=== PATIENT | female | born 1950 | race Caucasian/White ===

== ENCOUNTER → 2016-09-02 | Outpatient (CLI) | payer OTHER, BC ==
[~2016-09-02] MED LIST: BUPRTAB51 PO; DULO60CA44 PO; MEPE1TAB PO; POLY335040 PO; ULT/50 PO
[2016-09-02 18:13] LABS: BLOOD UREA NITROGEN 13 mg/dl (7-18); BUN/CREATININE RATIO 15.7 (10-20); CALCIUM 8.6 mg/dl (8.5-10.1); CARBON DIOXIDE 27 mmol/L (21-32); CHLORIDE 106 mmol/L (98-107); CREATININE 0.83 mg/dl (0.60-1.20); GLUCOSE 84 mg/dl (70-99); POTASSIUM 3.4 mmol/L (3.5-5.1); SODIUM 143 mmol/L (136-145)
== END | disposition home or self-care (01) ==
LOC: C.LABMFLN 09:01
PROVIDERS: ATTEND Family Medicine
DX: E87.6 Hypokalemia (principal)

== ENCOUNTER → 2016-10-05 | Outpatient (CLI) | payer OTHER, BC | END | disposition home or self-care (01) | LOC: C.LABMFLN 11:54 | PROVIDERS: ATTEND Internal Medicine Hematology & Oncology | DX: E03.9 Hypothyroidism, unspecified (principal) ==

== ENCOUNTER → 2016-10-19 | Outpatient (CLI) | payer OTHER, BC ==
--- NOTE | 2016-10-21 13:07 | CODING QUERY NO DIAGNOSIS ---
TREATMENT RENDERED WITHOUT A DIAGNOSIS Dr. Luis, To promote full compliance with coding requirements relating to patient care, physician participation is requested in all cases of investment banker uncertainty. Please assist us with providing a diagnosis/symptom for the test(s) below: A diagnosis/symptom was not documented on your Order. A valid diagnosis/symptom is required to bill all insurances. Please remember that we are unable to code a diagnosis of rule out, probable, possible, questionable, or suspected. Tests that require a diagnosis: * ANALYTE IMMUNOASSAY NON-INFECT DIAGNOSIS: * FLUORESCENT NONINF AGENT AB DIAGNOSIS: * VITAMIN D 25 HYDROXY DIAGNOSIS: DATE OF SERVICE: 10/19/16 Provider Signature: Date: Thank you Juan Carlos Franklin [facility] Information Management Once completed, please kindly fax back to [phone] For questions please call [phone]
[2016-10-22 14:44] LABS: GLIADIN DEAMIDATED IgA AB 9 UNITS (<20); GLIADIN DEAMIDATED IgG AB 8 UNITS (<20); RETICULIN IgA AB Negative (Negative)
== END | disposition home or self-care (01) ==
LOC: C.LABMFLN 09:07
PROVIDERS: ATTEND Family Medicine
DX: E87.6 Hypokalemia (principal); K50.919 Crohn's disease, unspecified, with unspecified complications; R19.7 Diarrhea, unspecified; E55.9 Vitamin D deficiency, unspecified

== ENCOUNTER → 2017-01-25 | Outpatient (CLI) | payer OTHER, BC ==
[2017-01-25 17:45] LABS: BASO % 0.9 %; BASO ABS # 0.09 K/uL (0-0.2); COMPLETE YES; EOS % 2.1 %; HEMATOCRIT 43.2 % (37-47); IG% 0.1 %; LYMPH % 22.4 %; LYMPH ABS # 2.23 K/uL (1.2-3.4); MEAN CELL VOLUME 90.4 fL (80-100); MEAN CORPUSCULAR HEMOGLOBIN 29.3 pg (25-34); MEAN CORPUSCULAR HGB CONC 32.4 g/dl (32-36); MEAN PLATELET VOLUME 9.6 fL (7.4-10.4); MONO % 6.3 %; NEUT % 68.2 %; PLATELET COUNT 349 K/uL (130-400); RED BLOOD COUNT 4.78 M/uL (4.2-5.4); WHITE BLOOD COUNT 9.95 K/uL (4.8-10.8)
[2017-01-25 18:18] LABS: ALB/GLOB RATIO 1.3 (0.9-2); ALT/SGPT 64 U/L (12-78); BLOOD UREA NITROGEN 12 mg/dl (7-18); BUN/CREATININE RATIO 15.7 (10-20); CARBON DIOXIDE 28 mmol/L (21-32); CHLORIDE 106 mmol/L (98-107); CHOLESTEROL 129 mg/dl (0-200); CHOLESTEROL/HDL RATIO 2.4; CREATININE 0.79 mg/dl (0.60-1.20); GLUCOSE 109 mg/dl (70-99); HDL CHOLESTEROL 53 mg/dl; LDL CHOLESTEROL CALCULATED 56 mg/dl; PHOSPHORUS 3.3 mg/dl (2.5-4.9); POTASSIUM 3.8 mmol/L (3.5-5.1); SODIUM 142 mmol/L (136-145); TRIGLYCERIDES 101 mg/dl (0-150); VERY LOW DENSITY LIPOPROT CALC 20 mg/dl
[2017-01-25 18:27] LABS: ALKALINE PHOSPHATASE 64 U/L (45-117); AST/SGOT 22 U/L (15-37); THYROID STIMULATING HORMONE 0.317 uIu/ml (0.300-4.500); TOTAL IRON BINDING CAPACITY 399 mcg/dl (250-450)
== END | disposition home or self-care (01) ==
LOC: C.LABMFLN 11:00
PROVIDERS: ATTEND Family Medicine
DX: I10 Essential (primary) hypertension (principal); M85.80 Other specified disorders of bone density and structure, unspecified site; E03.9 Hypothyroidism, unspecified; E83.39 Other disorders of phosphorus metabolism; E55.9 Vitamin D deficiency, unspecified; E83.51 Hypocalcemia; Z13.220 Encounter for screening for lipoid disorders; R53.83 Other fatigue; K50.90 Crohn's disease, unspecified, without complications

== ENCOUNTER → 2017-07-12 | Outpatient (CLI) | payer OTHER, BC ==
[2017-07-12 18:16] LABS: BASO % 0.7 %; BASO ABS # 0.07 K/uL (0-0.2); COMPLETE YES; EOS % 3.6 %; HEMATOCRIT 40.6 % (37-47); IG% 0.1 %; LYMPH % 28.2 %; LYMPH ABS # 2.88 K/uL (1.2-3.4); MEAN CELL VOLUME 89.2 fL (80-100); MEAN CORPUSCULAR HEMOGLOBIN 29.7 pg (25-34); MEAN CORPUSCULAR HGB CONC 33.3 g/dl (32-36); MEAN PLATELET VOLUME 9.7 fL (7.4-10.4); MONO % 8.6 %; NEUT % 58.8 %; PLATELET COUNT 301 K/uL (130-400); RED BLOOD COUNT 4.55 M/uL (4.2-5.4); WHITE BLOOD COUNT 10.23 K/uL (4.8-10.8)
[2017-07-12 18:33] LABS: ALT/SGPT 46 U/L (12-78); AST/SGOT 24 U/L (15-37); BLOOD UREA NITROGEN 17 mg/dl (7-18); BUN/CREATININE RATIO 22.7 (10-20); CALCIUM 8.9 mg/dl (8.5-10.1); CARBON DIOXIDE 28 mmol/L (21-32); CHLORIDE 104 mmol/L (98-107); CREATININE 0.76 mg/dl (0.60-1.20); GLUCOSE 84 mg/dl (70-99); POTASSIUM 3.8 mmol/L (3.5-5.1); SODIUM 138 mmol/L (136-145)
[2017-07-12 18:44] LABS: ALB/GLOB RATIO 1.2 (0.9-2); ALKALINE PHOSPHATASE 77 U/L (45-117); PHOSPHORUS 3.9 mg/dl (2.5-4.9)
== END | disposition home or self-care (01) ==
LOC: C.LABMFLN 16:07
PROVIDERS: ATTEND Family Medicine
DX: K50.90 Crohn's disease, unspecified, without complications (principal); I10 Essential (primary) hypertension; E03.9 Hypothyroidism, unspecified; M85.80 Other specified disorders of bone density and structure, unspecified site; E83.39 Other disorders of phosphorus metabolism; E55.9 Vitamin D deficiency, unspecified; R53.83 Other fatigue

== ENCOUNTER 2017-09-15 17:09 | Observation (INO) | payer OTHER, BC ==
[~2017-09-15] VITALS: Ht 160 cm; Wt 63.1 kg
[2017-09-15] MEDS ORDERED: MoRPHine SULFATE 10 MG/ML CARP/VIAL IV STA (17:20)
[2017-09-15] MEDS ORDERED: ONDANSETRON INJ 2 MG/ML 2 ML VIAL IV STA (17:20)
[2017-09-15] MEDS ORDERED: ABL/5 PO (17:49)
[2017-09-15] MEDS ORDERED: LEVO100T7 PO (17:49)
[2017-09-15] MEDS ORDERED: LOSA1TAB38 PO (17:51)
[2017-09-15] MEDS ORDERED: TRAZ50TA35 PO (17:52)
--- NOTE | 2017-09-15 17:54 | DIAGNOSTIC IMAGING REPORT ---
SINGLE VIEW CHEST CLINICAL HISTORY: Atypical chest pain. FINDINGS: An AP, portable, upright chest radiograph is compared to study dated 02/15/2012. The examination is degraded by portable technique and patient rotation. The cardiomediastinal silhouette is unremarkable. There is unchanged elevation of right hemidiaphragm with associated atelectasis. Chronic interstitial thickening is similar to previous. No airspace consolidation or large pleural effusion is identified. No pneumothorax is seen. The skeletal structures are osteopenic. Degenerative change and scoliosis are noted in the thoracic spine. There are numerous healed left-sided rib fractures. Cholecystectomy clips are identified in the right upper quadrant. IMPRESSION: No acute cardiopulmonary abnormality. Electronically signed by: Polo Reynoso M.D. 09/15/2017 5:52 PM Dictated Date/Time: 09/15/2017 5:51 PM
[2017-09-15 18:02] LABS: BASO % 0.8 %; BASO ABS # 0.07 K/uL (0-0.2); EOS % 3.1 %; EOS ABS # 0.26 K/uL (0-0.5); HEMATOCRIT 39.2 % (37-47); HEMOGLOBIN 12.8 g/dL (12.0-16.0); IG# 0.02 K/uL (0.00-0.02); LYMPH % 28.7 %; LYMPH ABS # 2.38 K/uL (1.2-3.4); MEAN CELL VOLUME 89.1 fL (80-100); MEAN CORPUSCULAR HEMOGLOBIN 29.1 pg (25-34); MEAN CORPUSCULAR HGB CONC 32.7 g/dl (32-36); MEAN PLATELET VOLUME 9.5 fL (7.4-10.4); MONO % 7.6 %; MONO ABS # 0.63 K/uL (0.11-0.59); NEUT % 59.6 %; NEUT ABS # 4.92 K/uL (1.4-6.5); PLATELET COUNT 311 K/uL (130-400); RED CELL DISTRIBUTION WIDTH CV 13.6 % (11.5-14.5); RED CELL DISTRIBUTION WIDTH SD 44.6 fL (36.4-46.3); WHITE BLOOD COUNT 8.28 K/uL (4.8-10.8)
[2017-09-15 18:22] LABS: ALBUMIN 3.7 gm/dl (3.4-5.0); ALT/SGPT 53 U/L (12-78); AST/SGOT 23 U/L (15-37); BLOOD UREA NITROGEN 13 mg/dl (7-18); CARBON DIOXIDE 26 mmol/L (21-32); CREATININE 0.77 mg/dl (0.60-1.20); GLUCOSE 94 mg/dl (70-99); LIPASE 195 U/L (73-393); POTASSIUM 3.9 mmol/L (3.5-5.1); SODIUM 137 mmol/L (136-145)
[2017-09-15 18:28] LABS: ALKALINE PHOSPHATASE 80 U/L (45-117); CKMB 1.9 ng/ml (0.5-3.6); TOTAL PROTEIN 6.9 gm/dl (6.4-8.2)
[2017-09-15] MEDS ORDERED: NITROGLYCERIN 0.4 MG SL PER TAB CHARGE SL PRN (18:30)
[2017-09-15] MEDS ORDERED: ONDANSETRON INJ 2 MG/ML 2 ML VIAL IV PRN (18:30)
[2017-09-15] MEDS ORDERED: POLYETHYLENE (MIRALAX) 17 GM PACK PO PRN (18:30)
--- NOTE | 2017-09-15 18:39 | History and Physical ---
History & Physical Date & Time of Service: Sep 15, 2017 at 18:28 Chief Complaint: Chest Pain Primary Care Physician: Polo Meraz M.D. History of Present Illness Source: patient, family This is a 67 yo F with PMHx of HTN, Crohns disease, Fibromyalgia, Vit D deficiency, depression, BETH, insomnia, hypothyroidism, who presents to the ER with acute onset of chest pain x 1 day. She was seen by her PCP, Dr. Meraz who sent her to the ER. Pt reports her pain started around 1 pm when she was laying flat in bed resting. The pain is in her left chest and radiates towards the center, she does have jaw pain. Patient denies any radiation to her back or down her arms. Other symptoms she is experiencing included headache, and increasing shortness of breath with minimal exertion. Pt notes she has been increasingly weak and with generalized fatigue over the last few weeks. She admits to taking rolaids during the night for the past few months and admits to a burning sensation, nausea. She does not take a routine PPI. Pt also reports urinary symptoms of burning and increased frequency x 1 week. She has not taken any meds for UTI, but has been increasing her fluid intake. She has attributed fatigue to her psychiatric meds which Dr. Ruiz at [facility] has been adjusting. Her Wellbutrin was recently increased to 150 mg about 2 weeks ago to improve her energy level. Otherwise her mood has been fairly good. Here in the ER EKG appears to be normal sinus rhythm without ST-T wave inversions or signs of ischemia. Initial troponin is negative, awaiting results of a d-dimer. Chest x-ray was reviewed showing a elevated right hemidiaphragm. Osteopenia. Past Medical/Surgical History HTN Crohns disease s/p R hemicolectomy 1968 and bowel adhesion lysis surgery 1991 Fibromyalgia Vit D deficiency depression BETH insomnia hypothyroidism Social History Smoking Status: Never Smoker Smokeless Tobacco Use: No Alcohol Use: none Drug Use: none Marital Status: Housing status: lives with family Occupational Status: retired Immunizations History of Influenza Vaccine: No History of Tetanus Vaccine?: Yes Tetanus Immunization Date: Feb 23, 2011 History of Pneumococcal: No History of Hepatitis B Vaccine: No Multi-Drug Resistant Organisms History of MDRO: No Allergies Coded Allergies: Codeine (Verified Adverse Reaction, Intermediate, AGITATION, HYPERACTIVITY , UNEASINESS, 09/15/17) Droperidol (Verified Adverse Reaction, Intermediate, AGITATION, HYPERACTIVITY, UNEASINESS, 09/15/17) Ketorolac (Verified Adverse Reaction, Intermediate, AGITATION, HYPERACTIVITY, 09/15/17) Oxycodone (Verified Adverse Reaction, Intermediate, PERCOCET/PERCODAN= AGITATION, UNEASINESS, HYPERACTIVITY, 09/15/17) Prochlorperazine (Verified Adverse Reaction, Intermediate, AGITATION, HYPERACTIVITY, 09/15/17) Propoxyphene (Verified Adverse Reaction, Intermediate, AGITATION, HYPERACTIVITY, 09/15/17) Replaces DARVOCET-N 10 Home Medications Scheduled Aripiprazole (Abilify), 2.5 MG PO QAM Bupropion Hcl (Wellbutrin Xl), 150 MG PO QAM Duloxetine Hcl (Cymbalta), 60 MG PO QAM Levothyroxine Sodium (Levothyroxine Sodium), 100 MCG PO QAM Losartan Potassium (Cozaar), 100 MG PO QAM Trazodone Hcl (Trazodone), 50 MG PO HS Review of Systems Constitutional: No fever, sweats or chills Eyes: No diplopia, no worsening or blurred vision ENT: normal hearing, no trouble swallowing Respiratory: See HPI. No cough, sputum, dyspnea at rest. Cardiovascular: See HPI. No tightness or palpitations Abdomen: +indigestion, No pain, nausea, vomiting, diarrhea or constipation Musculoskeletal: No joint pain, calf pain, swelling Neurologic: No weakness, numbness/tingling, or balance problems Psychiatric: No anxiety or depression Skin: No rash or itch Physical Exam Vital Signs Date Time Temp Pulse Resp B/P (MAP) Pulse Ox O2 Delivery O2 Flow Rate FiO2 09/15/17 18:06 76 20 122/70 96 Room Air 09/15/17 17:28 78 09/15/17 17:10 36.8 82 20 135/70 94 Room Air 09/15/17 17:10 94 Room Air 09/15/17 17:10 94 Room Air General: awake, alert, no apparent distress Head: Normocephalic, atraumatic ENT: PERRL, EOMI, no pharyngeal exudate, mucous membranes moist Chest: Nontender to palpation, Clear to auscultation, on room air, no adventitious breath sounds Cardiac: Regular rate and rhythm, no murmur, no JVD, normal peripheral pulses, good capillary refill Abdominal: NABS x 4 quadrants, soft, + Tenderness in epigastric with palpation, no rebound, guarding or tenderness Extremities: Normal inspection, no peripheral edema or erythema, calfs nontender to palpation Psych: Normal mood and affect Neuro: AAO x 3, speech is clear, no peripheral sensory deficits Diagnostics Laboratory Results Results Past 24 Hours Test 09/15/17 17:20 09/15/17 17:30 Range/Units Creatine Kinase MB Ratio 0-3.0 White Blood Count 8.28 4.8-10.8 K/uL Red Blood Count 4.40 4.2-5.4 M/uL Hemoglobin 12.8 12.0-16.0 g/dL Hematocrit 39.2 37-47 % Mean Corpuscular Volume 89.1 80-100 fL Mean Corpuscular Hemoglobin 29.1 25-34 pg Mean Corpuscular Hemoglobin Concent 32.7 32-36 g/dl Platelet Count 311 130-400 K/uL Mean Platelet Volume 9.5 7.4-10.4 fL Neutrophils (%) (Auto) 59.6 % Lymphocytes (%) (Auto) 28.7 % Monocytes (%) (Auto) 7.6 % Eosinophils (%) (Auto) 3.1 % Basophils (%) (Auto) 0.8 % Neutrophils # (Auto) 4.92 1.4-6.5 K/uL Lymphocytes # (Auto) 2.38 1.2-3.4 K/uL Monocytes # (Auto) 0.63 0.11-0.59 K/uL Eosinophils # (Auto) 0.26 0-0.5 K/uL Basophils # (Auto) 0.07 0-0.2 K/uL RDW Standard Deviation 44.6 36.4-46.3 fL RDW Coefficient of Variation 13.6 11.5-14.5 % Immature Granulocyte % (Auto) 0.2 % Immature Granulocyte # (Auto) 0.02 0.00-0.02 K/uL Sodium Level 137 136-145 mmol/L Potassium Level 3.9 3.5-5.1 mmol/L Chloride Level 105 98-107 mmol/L Carbon Dioxide Level 26 21-32 mmol/L Anion Gap 6.0 3-11 mmol/L Blood Urea Nitrogen 13 7-18 mg/dl Creatinine 0.77 0.60-1.20 mg/dl Est Creatinine Clear Calc Drug Dose 65.4 ml/min Estimated GFR () 92.6 Estimated GFR (Non- 79.9 BUN/Creatinine Ratio 17.0 10-20 Random Glucose 94 70-99 mg/dl Calcium Level 9.0 8.5-10.1 mg/dl Direct Bilirubin < 0.1 0-0.2 mg/dl Aspartate Amino Transf (AST/SGOT) 23 15-37 U/L Alanine Aminotransferase (ALT/SGPT) 53 12-78 U/L Albumin 3.7 3.4-5.0 gm/dl Lipase 195 73-393 U/L Diagnostic Radiology SINGLE VIEW CHEST CLINICAL HISTORY: Atypical chest pain. FINDINGS: An AP, portable, upright chest radiograph is compared to study dated 02/15/2012. The examination is degraded by portable technique and patient rotation. The cardiomediastinal silhouette is unremarkable. There is unchanged elevation of right hemidiaphragm with associated atelectasis. Chronic interstitial thickening is similar to previous. No airspace consolidation or large pleural effusion is identified. No pneumothorax is seen. The skeletal structures are osteopenic. Degenerative change and scoliosis are noted in the thoracic spine. There are numerous healed left-sided rib fractures. Cholecystectomy clips are identified in the right upper quadrant. IMPRESSION: No acute cardiopulmonary abnormality. Electronically signed by: Polo Reynoso M.D. 09/15/2017 5:52 PM Dictated Date/Time: 09/15/2017 5:51 PM The status of this report is Signed. EKG Normal sinus rhythm Normal ECG No previous ECGs available NE interval 134 ms QRS duration 78 ms QT/QTc 378/430 ms P-R-T axes 8 9 40 Impression Assessment and Plan This is a 67 yo F with PMHx of HTN, Crohns disease, Fibromyalgia, Vit D deficiency, depression, BETH, insomnia, hypothyroidism, who presents to the ER with acute onset of chest pain x 1 day. Chest Pain HTN - Admit to tele for observation - Appears to be epigastric with tenderness on palpation and history of requiring an acid - will give a GI cocktail and start on daily Protonix - Use nitropaste Q6H as pt had 2 tabs in the ER and had relief - initial troponin neg, trending 2 more sets, if troponins negative can likely do an outpatient stress test - Check echo - Continue home meds of losartan 100 mg daily, start on baby aspirin. Morphine sulfate 2 mg IV Q2H for severe pain Weakness - Will check an iron panel and lymes titre to r/o other causes of weakness. Hx Crohns disease - Stable - Pt follows with Dr. Luis as an outpatient. GERD - Start PPI and gi cocktail as above Possible UTI - Pt admits to symptoms of urinary burning and frequency 1 week - Check UA and Ucx if indicated. - Will start on Cipro 500 mg BID Vit D deficiency - Check level Hypothyroidism - Continue levothyroxine DVT ppx: teds, scds, lovenox CODE STATUS: Full Code Disposition: From home, likely discharge tomorrow. PA Physician Supervision Note: I interviewed and examined the patient. Discussed with Margarita Mcdonnell PAC and agree with findings and plan as documented in the note. Any exceptions or clarifications are listed here: None Documented By: Josue Kumar Level of Care Telemetry Resuscitation Status FULL RESUSCITATION VTE Prophylaxis Risk Level: Low Given or contraindicated: Enoxaparin (Lovenox)SQ, T.E.D. Stockings, SCD's
[2017-09-15 19:09] LABS: PTT PATIENT 25.2 SECONDS (21.0-31.0)
[2017-09-15] MEDS ORDERED: GI COCKTAIL PO ONE (19:15)
[2017-09-15] MEDS ORDERED: MoRPHine SULFATE 2 MG/ML CARP IV PRN (19:15)
[2017-09-15] MEDS ORDERED: MoRPHine SULFATE 2 MG/ML CARP ONE (19:16)
[2017-09-15] MEDS ORDERED: ALUMINUM/MAGNESIUM SUSP 18 ML, LIDOCAINE HCL 2% VISCOUS SOLN 6 ML, BARCODE IDENTIFIER 1 EA PO SCH ×2 (19:30)
[2017-09-15] MEDS ORDERED: IV FLUIDS COMPLETED PRN (19:45)
[2017-09-15 20:44] VITALS: BP 116/70; PULSE 81; TEMP 36.5; O2SAT 93; Ht 160 cm; Wt 63.1 kg
--- NOTE | 2017-09-15 20:59 | EMERGENCY ROOM VISIT NOTE ---
History Report prepared by Noah: Aleja Hawkins Under the Supervision of: Dr. Misael Mckeon D.O. First contact with patient: 17:12 Stated Complaint: CHEST PAIN History of Present Illness The patient is a 67 year old female who presents to the Emergency Room with complaints of persistent chest pain starting 4 hours ago. She presents to the ED by EMS from her PCP's office. The patient started having chest pain around 4 hours ago which she describes as a "contraction". She states that it is sharp and stabbing. The pain radiates up into her jaw. She has never had this pain before. She tried taking Rolaids to no significant relief. She went to her PCP and was sent to the ED. She had 162 of aspirin [employer]. She had nitro which initially relieved her pain, but the pain returned. She does not identify anything else that improves or worsens her pain. There is no change in her pain with breathing. She feels SOB. She had been feeling weak and fatigued over the past 3-4 days. She denies any hemoptysis, leg swelling, cough, rhinorrhea, or abdominal pain. She has a history of hypertension. She denies any history of blood clots, diabetes, high cholesterol, or problems with her aorta. She does not smoke. She denies any recent travel. Source of History: patient Onset: 4 hours ago Position: chest Quality: sharp, stabbing Timing: other (persistent) Modifying Factors (Relieving): other (nitro) Associated Symptoms: + SOB, + fatigue, + weakness, No cough, No abdominal pain Note: Pt reports jaw pain. Review of Systems See HPI for pertinent positives & negatives. A total of 10 systems reviewed and were otherwise negative. Past Medical & Surgical Medical Problems: (1) Chest pain (2) Crohn's disease (3) Hypertension Family History No pertinent family history stated. Social History Smoking Status: Never Smoker Marital Status: Occupation Status: retired Current/Historical Medications Scheduled Aripiprazole (Abilify), 2.5 MG PO QAM Bupropion Hcl (Wellbutrin Xl), 150 MG PO QAM Duloxetine Hcl (Cymbalta), 60 MG PO QAM Levothyroxine Sodium (Levothyroxine Sodium), 100 MCG PO QAM Losartan Potassium (Cozaar), 100 MG PO QAM Trazodone Hcl (Trazodone), 50 MG PO HS Allergies Coded Allergies: Codeine (Verified Adverse Reaction, Intermediate, AGITATION, HYPERACTIVITY , UNEASINESS, 09/15/17) Droperidol (Verified Adverse Reaction, Intermediate, AGITATION, HYPERACTIVITY, UNEASINESS, 09/15/17) Ketorolac (Verified Adverse Reaction, Intermediate, AGITATION, HYPERACTIVITY, 09/15/17) Oxycodone (Verified Adverse Reaction, Intermediate, PERCOCET/PERCODAN= AGITATION, UNEASINESS, HYPERACTIVITY, 09/15/17) Prochlorperazine (Verified Adverse Reaction, Intermediate, AGITATION, HYPERACTIVITY, 09/15/17) Propoxyphene (Verified Adverse Reaction, Intermediate, AGITATION, HYPERACTIVITY, 09/15/17) Replaces DARVOCET-N 10 Physical Exam Vital Signs Date Time Temp Pulse Resp B/P (MAP) Pulse Ox O2 Delivery O2 Flow Rate FiO2 09/15/17 18:30 78 17 125/75 92 Room Air 09/15/17 18:06 76 20 122/70 96 Room Air 09/15/17 17:28 78 09/15/17 17:10 36.8 82 20 135/70 94 Room Air 09/15/17 17:10 94 Room Air 09/15/17 17:10 94 Room Air Physical Exam GENERAL: Sitting up in bed, alert, well appearing, well nourished, no distress, non-toxic EYE EXAM: normal conjunctiva. OROPHARYNX: no exudate, no erythema, lips, buccal mucosa, and tongue normal and mucous membranes are moist NECK: supple, no nuchal rigidity, no adenopathy, non-tender CHEST: No reproducible anterior chest wall pain. LUNGS: Clear to auscultation. Normal chest wall mechanics HEART: no murmurs, S1 normal and S2 normal ABDOMEN: abdomen soft, non-tender, normo-active bowel sounds, no masses, no rebound or guarding. BACK: Back is symmetrical on inspection and there is no deformity, no midline tenderness, no CVA tenderness. SKIN: no rashes and no bruising UPPER EXTREMITIES: upper extremities are grossly normal. Radial pulses equal bilaterally. LOWER EXTREMITIES: No pitting edema. Calves equal bilaterally. NEURO EXAM: Normal sensorium, cranial nerves II-XII grossly intact, normal speech, no gross weakness of arms, no gross weakness of legs. Medical Decision & Procedures ER Provider Diagnostic Interpretation: Xray results as stated below per my and the radiologist's interpretation: SINGLE VIEW CHEST CLINICAL HISTORY: Atypical chest pain. FINDINGS: An AP, portable, upright chest radiograph is compared to study dated 02/15/2012. The examination is degraded by portable technique and patient rotation. The cardiomediastinal silhouette is unremarkable. There is unchanged elevation of right hemidiaphragm with associated atelectasis. Chronic interstitial thickening is similar to previous. No airspace consolidation or large pleural effusion is identified. No pneumothorax is seen. The skeletal structures are osteopenic. Degenerative change and scoliosis are noted in the thoracic spine. There are numerous healed left-sided rib fractures. Cholecystectomy clips are identified in the right upper quadrant. IMPRESSION: No acute cardiopulmonary abnormality. Electronically signed by: Polo Reynoso M.D. 09/15/2017 5:52 PM Dictated Date/Time: 09/15/2017 5:51 PM Laboratory Results 09/15/17 17:30 Red Blood Count 4.40, Mean Corpuscular Volume 89.1, Mean Corpuscular Hemoglobin 29.1, Mean Corpuscular Hemoglobin Concent 32.7, Mean Platelet Volume 9.5, Neutrophils (%) (Auto) 59.6, Lymphocytes (%) (Auto) 28.7, Monocytes (%) (Auto) 7.6, Eosinophils (%) (Auto) 3.1, Basophils (%) (Auto) 0.8, Neutrophils # (Auto) 4.92, Lymphocytes # (Auto) 2.38, Monocytes # (Auto) 0.63, Eosinophils # (Auto) 0.26, Basophils # (Auto) 0.07 09/15/17 17:30 Test 09/15/17 00:00 09/15/17 17:30 Urine Color DK YELLOW Urine Appearance CLEAR (CLEAR) Urine pH 5.0 (4.5-7.5) Urine Specific [place] 1.020 (1.000-1.030) Urine Protein NEG (NEG) Urine Glucose (UA) NEG (NEG) Urine Ketones NEG (NEG) Urine Occult Blood NEG (NEG) Urine Nitrite NEG (NEG) Urine Bilirubin NEG (NEG) Urine Urobilinogen NEG (NEG) Urine Leukocyte Esterase MODERATE (NEG) Urine WBC (Auto) >30 /hpf (0-5) Urine RBC (Auto) 0-4 /hpf (0-4) Urine Hyaline Casts (Auto) 1-5 /lpf (0-5) Urine Epithelial Cells (Auto) >30 /lpf (0-5) Urine Bacteria (Auto) NEG (NEG) White Blood Count 8.28 K/uL (4.8-10.8) Red Blood Count 4.40 M/uL (4.2-5.4) Hemoglobin 12.8 g/dL (12.0-16.0) Hematocrit 39.2 % (37-47) Mean Corpuscular Volume 89.1 fL (80-100) Mean Corpuscular Hemoglobin 29.1 pg (25-34) Mean Corpuscular Hemoglobin Concent 32.7 g/dl (32-36) Platelet Count 311 K/uL (130-400) Mean Platelet Volume 9.5 fL (7.4-10.4) Neutrophils (%) (Auto) 59.6 % Lymphocytes (%) (Auto) 28.7 % Monocytes (%) (Auto) 7.6 % Eosinophils (%) (Auto) 3.1 % Basophils (%) (Auto) 0.8 % Neutrophils # (Auto) 4.92 K/uL (1.4-6.5) Lymphocytes # (Auto) 2.38 K/uL (1.2-3.4) Monocytes # (Auto) 0.63 K/uL (0.11-0.59) Eosinophils # (Auto) 0.26 K/uL (0-0.5) Basophils # (Auto) 0.07 K/uL (0-0.2) RDW Standard Deviation 44.6 fL (36.4-46.3) RDW Coefficient of Variation 13.6 % (11.5-14.5) Immature Granulocyte % (Auto) 0.2 % Immature Granulocyte # (Auto) 0.02 K/uL (0.00-0.02) Prothrombin Time 10.2 SECONDS (9.0-12.0) Prothromb Time International Ratio 1.0 (0.9-1.1) Activated Partial Thromboplast Time 25.2 SECONDS (21.0-31.0) Partial Thromboplastin Ratio 1.0 D-Dimer 210 ug/L FEU (0-500) Anion Gap 6.0 mmol/L (3-11) Est Creatinine Clear Calc Drug Dose 65.4 ml/min Estimated GFR () 92.6 Estimated GFR (Non- 79.9 BUN/Creatinine Ratio 17.0 (10-20) Calcium Level 9.0 mg/dl (8.5-10.1) Total Bilirubin 0.4 mg/dl (0.2-1) Direct Bilirubin < 0.1 mg/dl (0-0.2) Aspartate Amino Transf (AST/SGOT) 23 U/L (15-37) Alanine Aminotransferase (ALT/SGPT) 53 U/L (12-78) Alkaline Phosphatase 80 U/L (45-117) Total Creatine Kinase 74 U/L (26-192) Creatine Kinase MB 1.9 ng/ml (0.5-3.6) Creatine Kinase MB Ratio 2.6 (0-3.0) Troponin I < 0.015 ng/ml (0-0.045) Total Protein 6.9 gm/dl (6.4-8.2) Albumin 3.7 gm/dl (3.4-5.0) Lipase 195 U/L (73-393) Lyme Disease IgM Antibody NEG (NEG) Laboratory results per my review. Medications Administered Medications (Trade) Dose Ordered Sig/Theresa Route Start Time Stop Time Status Last Admin Dose Admin Morphine Sulfate (MoRPHine SULFATE INJ) 6 mg NOW STAT IV 09/15/17 17:20 09/15/17 17:21 DC 09/15/17 18:08 6 MG Ondansetron HCl (Zofran Inj) 4 mg NOW STAT IV 09/15/17 17:20 09/15/17 17:21 DC 09/15/17 18:08 4 MG ECG Indication: chest pain Rate (beats per minute): 78 Rhythm: sinus rhythm Findings: no ectopy, other (normal axis, poor baseline inferior leads) Change: EKG from 1530 shows SR, rate 79, normal axis, no ectopy. EKGs per my interpretation. ED Course ED COURSE: Vital signs were reviewed and showed normal vitals. The patients medical record was reviewed The above diagnostic studies were performed and reviewed. ED treatments and interventions as stated above. 1713: The patient was evaluated in room C8. A complete history and physical examination was performed. 1720: Zofran Inj 4 mg IV, Morphine Sulfate 6 mg IV. 1811: I reevaluated the patient. She has just received the morphine. She is feeling slightly better. 1826: I reviewed the patient's case with Dr. Kumar [facility] hospitalist. He will evaluate the patient for further management. 1831: Upon reevaluation, the patient's pain is improved. She is also complaining of urinary symptoms. I discussed my findings with the patient and she understands and agrees with the treatment plan. Based on the patients age, coexisting illnesses, exam and lab findings the decision to treat as an inpatient was made. The patient remained stable while under my care. The patient will be evaluated for further management. Medical Decision Differential diagnoses includes but is not limited to acute coronary syndrome, myocardial infarction, pericarditis, pulmonary embolus, aortic dissection, pneumonia, pneumothorax, musculoskeletal, shingles, esophageal. Patient is a 67-year-old female who has been feeling real weak for the past 2-3 days. She has also felt short of breath. Today she started to have intermittent chest pain. Present PCPs office and was referred in to the ER. EKG was unremarkable. Upon was negative. Chest x-ray unremarkable. She did admit to dysuria and urgency. UA was obtained. Did show white cells and esterase. Greater than 30 epithelial cells. This was not a clean catch. EKG was nonischemic. She was given morphine and had significant improvement in her pain. Discussed with internal medicine patient was negative for further workup. Medication Reconcilliation Current Medication List: was personally reviewed by me Blood Pressure Screening Patient's blood pressure: Normal blood pressure Blood pressure disposition: Did not require urgent referral Consults Time Called: 1819 Consulting Physician: JOVON Ghotra hospitalist Returned Call: [phone] I reviewed the patient's case with him. He will evaluate the patient for further management. Impression Primary Impression: Precordial chest pain Scribe Attestation The scribe's documentation has been prepared under my direction and personally reviewed by me in its entirety. I confirm that the note above accurately reflects all work, treatment, procedures, and medical decision making performed by me. Departure Information Dispostion Being Evaluated By Hospitalist Referrals No Doctor, Assigned (PCP)
[2017-09-15] MEDS ORDERED: TRAZODONE HCL 50 MG TAB PO SCH (21:00)
[2017-09-15] MEDS: CIPROFLOXACIN 500 MG TAB PO SCH (21:38)
[2017-09-15] MEDS: ENOXAPARIN 40 MG/0.4 ML SYR SC SCH (21:39)
[2017-09-15 22:48] VITALS: BP 99/53; PULSE 80; TEMP 36.8; O2SAT 92
[2017-09-15] MEDS: NITROGLYCERIN 2% OINTMENT 30GM TUBE EXT SCH (23:12)
[2017-09-15 23:15] VITALS: BP 109/64; PULSE 86; TEMP 36.6; O2SAT 93
[2017-09-16] VITALS (11 sets, daily range): BP systolic 90–146; BP diastolic 55–84; PULSE 71–89; TEMP 36.2–36.9; O2SAT 91–95
[2017-09-16] MEDS: ACETAMINOPHEN 325 MG TAB PO PRN ×3 (02:53→20:54)
[2017-09-16] MEDS: LEVOTHYROXINE 100 MCG TAB PO SCH (06:31)
[2017-09-16] MEDS: NITROGLYCERIN 2% OINTMENT 30GM TUBE EXT SCH ×2 (06:31→12:27)
[2017-09-16 07:05] LABS: BASO % 0.9 %; BASO ABS # 0.04 K/uL (0-0.2); EOS % 3.2 %; EOS ABS # 0.14 K/uL (0-0.5); HEMATOCRIT 34.1 % (37-47); HEMOGLOBIN 11.3 g/dL (12.0-16.0); IG# 0.01 K/uL (0.00-0.02); LYMPH % 30.1 %; LYMPH ABS # 1.31 K/uL (1.2-3.4); MEAN CELL VOLUME 88.6 fL (80-100); MEAN CORPUSCULAR HEMOGLOBIN 29.4 pg (25-34); MEAN CORPUSCULAR HGB CONC 33.1 g/dl (32-36); MEAN PLATELET VOLUME 9.3 fL (7.4-10.4); MONO % 8.3 %; MONO ABS # 0.36 K/uL (0.11-0.59); NEUT % 57.3 %; NEUT ABS # 2.49 K/uL (1.4-6.5); PLATELET COUNT 224 K/uL (130-400); RED CELL DISTRIBUTION WIDTH CV 13.7 % (11.5-14.5); RED CELL DISTRIBUTION WIDTH SD 44.2 fL (36.4-46.3); WHITE BLOOD COUNT 4.35 K/uL (4.8-10.8)
[2017-09-16 07:25] LABS: BLOOD UREA NITROGEN 13 mg/dl (7-18); CALCIUM 8.1 mg/dl (8.5-10.1); CARBON DIOXIDE 27 mmol/L (21-32); CHOLESTEROL 110 mg/dl (0-200); CREATININE 0.63 mg/dl (0.60-1.20); GLUCOSE 88 mg/dl (70-99); POTASSIUM 3.9 mmol/L (3.5-5.1); SODIUM 137 mmol/L (136-145)
[2017-09-16] MEDS: ASPIRIN 81 MG ECTAB PO SCH (07:28)
[2017-09-16] MEDS: BuPROPion XL 150 MG TABCR PO SCH (07:28)
[2017-09-16] MEDS: ARIPIprazole TAB 5 MG TAB PO SCH (07:28)
[2017-09-16] MEDS: CIPROFLOXACIN 500 MG TAB PO SCH ×2 (07:28→20:52)
[2017-09-16] MEDS: DULOXETINE HCL 60 MG CAP PO SCH (07:28)
[2017-09-16] MEDS: PANTOprazole SOD 40 MG TAB PO SCH (07:28)
[2017-09-16 07:31] LABS: LDL CHOLESTEROL CALCULATED 44 mg/dl; TRANSFERRIN 278 mg/dl (200-360)
[2017-09-16 08:29] LABS: HEMOGLOBIN A1C 5.4 % (4.5-5.6)
[2017-09-16] MEDS: LOSARTAN POTASSIUM 50 MG TAB PO SCH (09:00)
--- NOTE | 2017-09-16 13:12 | ECHOCARDIOGRAM REPORT ---
*NOTICE TO RECEIVING CONSTITUTION PARTY AGENCY This information is strictly Confidential and protected under [place] law. [place] law prohibits you from making any further disclosure of this information unless further disclosure is expressly permitted by the written consent of the person to whom it pertains or is authorized by law. A general authorization for the release of medical or other information is not sufficient for this purpose. Hospital accepts no responsibility if the information is made available to any other person, INCLUDING THE PATIENT. Interpretation Summary * Conclusions -- * [facility], no significant change. * The left ventricle is normal in size. * The left ventricular wall motion is normal. * Ejection Fraction = 55-60%. * Left ventricular systolic function is normal. * There is borderline concentric left ventricular hypertrophy. * There is mild mitral regurgitation. * The left atrial size is normal. * There is mild tricuspid regurgitation. * Right ventricular systolic pressure is normal. Procedure Details * A complete two-dimensional transthoracic echocardiogram was performed (2D, M-mode, Doppler and color flow Doppler). Left Ventricle * The left ventricle is normal in size. * There is borderline concentric left ventricular hypertrophy. * Left ventricular systolic function is normal. * Ejection Fraction = 55-60%. * The left ventricular wall motion is normal. Right Ventricle * The right ventricle is mildly dilated. * There is normal right ventricular wall thickness. * The right ventricular systolic function is normal. Atria * The left atrial size is normal. * Right atrial size is normal. * The interatrial septum is intact with no evidence for an atrial septal defect. Mitral Valve * The mitral valve is normal in structure and function. * There is no mitral valve stenosis. * There is mild mitral regurgitation. Tricuspid Valve * The tricuspid valve is normal in structure and function. * There is mild tricuspid regurgitation. * Right ventricular systolic pressure is normal. Aortic Valve * The aortic valve is trileaflet. * The aortic valve is normal in structure and function. * No hemodynamically significant valvular aortic stenosis. * No aortic regurgitation is present. Pulmonic Valve * The pulmonary valve is not well seen, but the Doppler examination is normal without significant regurgitation or stenosis. * There is no significant pulmonary regurgitation. Great Vessels * The aortic root is normal size. * Aortic arch of normal dimension. * No obvious dissection could be visualized. * The pulmonary artery is not well visualized, but is probably normal size. Pericardium/Pleural * There is no pericardial effusion. MMode 2D Measurements and Calculations IVSd 1.3 cm IVSs 1.2 cm LVIDd 3.8 cm LVIDs 2.9 cm LVPWd 1.1 cm LVPWs 1.3 cm IVS/LVPW 1.2 FS 23.3 % EDV(Teich) 62.5 ml ESV(Teich) 32.9 ml EF(Teich) 47.4 % EDV(cubed) 55.4 ml ESV(cubed) 25.0 ml EF(cubed) 54.9 % % IVS thick -6.92 % % LVPW thick 12.0 % LV mass(C)d 159.5 grams LV mass(C)dI 93.5 grams/m\S\2 LV mass(C)s 112.6 grams LV mass(C)sI 66.0 grams/m\S\2 SV(Teich) 29.6 ml SI(Teich) 17.3 ml/m\S\2 SV(cubed) 30.4 ml SI(cubed) 17.8 ml/m\S\2 Ao root diam 2.6 cm Ao root area 5.3 cm\S\2 ACS 1.8 cm LA dimension 2.2 cm LA/Ao 0.86 LVOT diam 1.9 cm LVOT area 2.9 cm\S\2 LVAd ap4 27.2 cm\S\2 LVLd ap4 7.2 cm EDV(MOD-sp4) 83.9 ml EDV(sp4-el) 86.4 ml LVAs ap4 18.2 cm\S\2 LVLs ap4 6.0 cm ESV(MOD-sp4) 45.3 ml ESV(sp4-el) 47.0 ml EF(MOD-sp4) 46.0 % EF(sp4-el) 45.6 % LVAd ap2 23.9 cm\S\2 LVLd ap2 6.3 cm EDV(MOD-sp2) 76.3 ml EDV(sp2-el) 77.0 ml LVAs ap2 11.8 cm\S\2 LVLs ap2 4.7 cm ESV(MOD-sp2) 25.8 ml ESV(sp2-el) 25.2 ml EF(MOD-sp2) 66.2 % EF(sp2-el) 67.2 % LVLd %diff -15.55 % EDV(MOD-bp) 86.7 ml LVLs %diff -27.11 % ESV(MOD-bp) 38.3 ml EF(MOD-bp) 55.8 % SV(MOD-sp4) 38.6 ml SI(MOD-sp4) 22.6 ml/m\S\2 SV(MOD-sp2) 50.5 ml SI(MOD-sp2) 29.6 ml/m\S\2 SV(MOD-bp) 48.4 ml SI(MOD-bp) 28.4 ml/m\S\2 SV(sp4-el) 39.4 ml SI(sp4-el) 23.1 ml/m\S\2 SV(sp2-el) 51.8 ml SI(sp2-el) 30.4 ml/m\S\2 Doppler Measurements and Calculations MV E max hardeep 74.4 cm/sec MV A max hardeep 73.3 cm/sec MV E/A 1.0 MV P1/2t max hardeep 88.9 cm/sec MV P1/2t 85.7 msec MVA(P1/2t) 2.6 cm\S\2 MV dec slope 303.6 cm/sec\S\2 MV dec time 0.28 sec Ao V2 max 120.7 cm/sec Ao max PG 5.8 mmHg Ao max PG (full) 2.4 mmHg MILENA(V,A) 2.2 cm\S\2 MILENA(V,D) 2.2 cm\S\2 LV V1 max PG 3.4 mmHg LV V1 max 92.2 cm/sec PA V2 max 85.4 cm/sec PA max PG 2.9 mmHg TR max hardeep 241.9 cm/sec
[2017-09-16] MEDS: SUCRALFATE 1 GM/10 ML UDC PO SCH ×2 (17:36→20:51)
[2017-09-16] MEDS: ENOXAPARIN 40 MG/0.4 ML SYR SC SCH (20:52)
[2017-09-16] MEDS ORDERED: TRAZODONE HCL 100 MG TAB PO SCH (21:00)
--- NOTE | 2017-09-16 21:02 | Progress Note ---
Subjective Date of Service: Sep 16, 2017. Subjective Pt evaluation today including: conversation w/ patient, physical exam, chart review, lab review, review of studies (echo), conversation w/ leasing sales consultant ( cardiology), review of inpatient medication list Pain: chest pain again this AM at 0630 PO Intake: tolerating diet w/o difficulty Voiding: no voiding problems tele stable overnight patient reports NO exertional chest pain, dyspnea, extreme fatigue (above & beyond chronic fatigue from fibromyalgia), etc in the last few months denies positional nature of chest pain in between episodes she has no pain no pleuritic component to it pain this am at 0630 DID improve with SL nitro as did her prior episode in the ER at presentation she has noted significant reflux symptoms in the last month at home taking rolaids completely mild amount of upper abdominal discomfort as well Problem List Medical Problems: (1) Precordial chest pain Status: Acute Review of Systems Constitutional: No fever Respiratory: No cough, No sputum, No wheezing, No shortness of breath, No dyspnea on exertion Cardiac: + see HPI, + chest pain, No orthopnea, No PND, No edema Abdomen: + pain, No nausea, No vomiting Objective Vital Signs Date Time Temp Pulse Resp B/P (MAP) Pulse Ox O2 Delivery O2 Flow Rate FiO2 09/16/17 19:23 36.7 85 20 124/76 (92) 95 Room Air 09/16/17 16:27 36.8 75 18 111/55 (73) 94 09/16/17 16:00 94 Room Air 09/16/17 12:29 36.8 89 18 146/84 (104) 94 Room Air 09/16/17 12:07 95 Room Air 09/16/17 08:54 95 Room Air 09/16/17 08:54 95 Room Air 09/16/17 07:33 36.8 71 20 90/58 (69) 95 09/16/17 06:32 72 99/58 (72) 09/16/17 04:00 Room Air 09/16/17 02:55 36.2 80 18 108/65 (79) 91 Room Air 09/16/17 00:00 Room Air 09/15/17 23:15 36.6 86 16 109/64 (79) 93 Room Air 09/15/17 22:48 36.8 80 16 99/53 (68) 92 Physical Exam General Appearance: no apparent distress ENT: pharynx normal Neck: no JVD Respiratory/Chest: chest non-tender, lungs clear, normal breath sounds, no respiratory distress, no accessory muscle use Cardiovascular: regular rate, rhythm, no gallop, no murmur Abdomen: normal bowel sounds, soft, no organomegaly, + tenderness (high epigastric region, mild) Extremities: no pedal edema Neurologic/Psychiatric: alert, oriented x 3 Laboratory Results Last 24 Hours Test 09/15/17 23:19 09/16/17 06:53 09/16/17 06:54 09/16/17 14:35 Troponin I < 0.015 ng/ml < 0.015 ng/ml < 0.015 ng/ml White Blood Count 4.35 K/uL Red Blood Count 3.85 M/uL Hemoglobin 11.3 g/dL Hematocrit 34.1 % Mean Corpuscular Volume 88.6 fL Mean Corpuscular Hemoglobin 29.4 pg Mean Corpuscular Hemoglobin Concent 33.1 g/dl Platelet Count 224 K/uL Mean Platelet Volume 9.3 fL Neutrophils (%) (Auto) 57.3 % Lymphocytes (%) (Auto) 30.1 % Monocytes (%) (Auto) 8.3 % Eosinophils (%) (Auto) 3.2 % Basophils (%) (Auto) 0.9 % Neutrophils # (Auto) 2.49 K/uL Lymphocytes # (Auto) 1.31 K/uL Monocytes # (Auto) 0.36 K/uL Eosinophils # (Auto) 0.14 K/uL Basophils # (Auto) 0.04 K/uL RDW Standard Deviation 44.2 fL RDW Coefficient of Variation 13.7 % Immature Granulocyte % (Auto) 0.2 % Immature Granulocyte # (Auto) 0.01 K/uL Estimated Average Glucose 108 mg/dl Hemoglobin A1c 5.4 % Vitamin B12 Level 969 pg/mL Sodium Level 137 mmol/L Potassium Level 3.9 mmol/L Chloride Level 104 mmol/L Carbon Dioxide Level 27 mmol/L Anion Gap 6.0 mmol/L Blood Urea Nitrogen 13 mg/dl Creatinine 0.63 mg/dl Est Creatinine Clear Calc Drug Dose 77.6 ml/min Estimated GFR () 107.6 Estimated GFR (Non- 92.8 BUN/Creatinine Ratio 20.4 Random Glucose 88 mg/dl Calcium Level 8.1 mg/dl Iron Level 77 mcg/dl Total Iron Binding Capacity 345 mcg/dl Transferrin 278 mg/dl Transferrin % Saturation 20 % Ferritin 143.7 ng/ml Triglycerides Level 129 mg/dl Cholesterol Level 110 mg/dl HDL Cholesterol 40 mg/dl LDL Cholesterol, Calculated 44 mg/dl VLDL Cholesterol, Calculated 26 mg/dl Cholesterol/HDL Ratio 2.8 Assessment and Plan 67yo female- 1. chest pain - despite multiple episodes last 24 hours she has had 4 negative troponins, NO EKG changes, and has a normal 2D echo. With that said, and even though she has few risk factors for CAD, I am concerned that her pain improves with SL nitro. Certainly if this is esophageal in origin the pain can improve with nitro as well. I spoke with cardiology and we will attempt to obtain an exercise stress echo tomorrow. NPO after MN. Treat for possible GI etiology with PPI + carafate in meantime. 2. possible GERD - PPI + carafate. 3. fibromyalgia - no symptoms at this time. 4. crohn's disease - does not appear active at this time. 5. hypothyroidism - TSH 06/2017 wnl; cont synthroid. 6. HTN - controlled. Cont ARB. 7. ? of UTI - cont cipro while awaiting urine culture. 8. mood disorder - continue outpatient meds. 9. DVT proph - lovenox 40mg once daily. if stress test is negative tomorrow then d/c home with GI follow-up Discharge planning: home
[2017-09-17 04:00] VITALS: BP 113/69; PULSE 72; TEMP 36.5; O2SAT 96
[2017-09-17] MEDS: SUCRALFATE 1 GM/10 ML UDC PO SCH ×2 (05:46→10:19)
[2017-09-17] MEDS: LEVOTHYROXINE 100 MCG TAB PO SCH (05:46)
[2017-09-17 08:25] VITALS: O2SAT 95
[2017-09-17] MEDS ORDERED: SUCR1TAB29 PO (09:34)
[2017-09-17] MEDS ORDERED: PRT40 PO (09:34)
--- NOTE | 2017-09-17 09:42 | Discharge Instructions ---
Discharge Instructions Date of Service Sep 17, 2017. Admission Reason for Admission: Chest Pain Discharge Discharge Diagnosis / Problem: chest pain, no evidence of heart attack; suspected GI cause Discharge Goals Goal(s): Learn about illness, Diagnostic testing, Therapeutic intervention Activity Recommendations Activity Limitations: resume your previous activity . Instructions / Follow-Up Instructions / Follow-Up You were admitted due to chest pain/upper abdominal pain. A work-up to exclude cardiac/heart causes of your pain was NORMAL. Telemetry (heart monitoring), 4 troponins (blood tests for heart damage), EKGs, echocardiogram, and stress test were all normal/negative. Your symptoms gradually improved while you were here. I am suspicious that your symptoms may be upper GI in origin. Possibilities include reflux disease, gastritis (irritation of the stomach lining), esophagitis (irritation of the esophagus lining), ulcer disease, etc. Please do the following - * TAKE pantoprazole (protonix) 40mg once daily every morning on an empty stomach ; start this tomorrow * TAKE carafate (sucralfate) 1 gram before meals and at bedtime for 1 week; start this today * CALL Dr. Luis's office, [facility], to schedule a follow-up; he may recommend an EGD (upper endoscopy) * RESTRICT caffeine in your diet (soda/tea/coffee); avoid alcohol; avoid spicy foods, fried foods, fast foods, red sauces, etc * AVOID anti-inflammatory drugs for now; this includes aspirin, motrin, ibuprofen, naprosyn, alleve, etc; tylenol IS ok In addition, please see Dr. Meraz THIS WEEK to ensure that you are doing well. Return to [facility] if - * you develop recurrent chest pain or abdominal pain that is not relieved with your prescribed medications * you develop shortness of breath / breathing difficulty * you see blood in your stool, or you have black/tarry stools * any other concerns Current Hospital Diet Patient's current hospital diet: AHA Diet (Heart Healthy) Discharge Diet Recommended Diet: AHA Diet (Heart Healthy) Procedures Procedures Performed: 1. echocardiogram - normal heart function, normal heart valves. 2. chest x-ray - normal. 3. stress test - normal/negative. Pending Studies Studies pending at discharge: yes List of pending studies: urine culture Laboratory Results Hemoglobin A1c Test 09/16/17 06:53 Range/Units Estimated Average Glucose 108 mg/dl Hemoglobin A1c 5.4 4.5-5.6 % Lipid Panel Test 09/16/17 06:54 Range/Units Triglycerides Level 129 0-150 mg/dl Cholesterol Level 110 0-200 mg/dl HDL Cholesterol 40 mg/dl Cholesterol/HDL Ratio 2.8 LDL Cholesterol, Calculated 44 mg/dl Medical Emergencies . Who to Call and When: Medical Emergencies: If at any time you feel your situation is an emergency, please call 911 immediately. . Non-Emergent Contact Non-Emergency issues call your: Primary Care Provider Call Non-Emergent contact if: your pain is not controlled, your pain is worsening, your pain is unusual for you, your pain is concerning you, you have any medication questions . . "Provider Documentation" section prepared by Casper Oneal. . VTE Core Measure Inpt VTE Proph given/why not?: Enoxaparin (Lovenox)SQ, T.E.D. Stockings, SCD's
[2017-09-17 09:48] VITALS: BP 113/69; PULSE 72; TEMP 36.5; O2SAT 95
[2017-09-17] MEDS: ARIPIprazole TAB 5 MG TAB PO SCH (10:18)
[2017-09-17] MEDS: CIPROFLOXACIN 500 MG TAB PO SCH (10:18)
[2017-09-17] MEDS: ASPIRIN 81 MG ECTAB PO SCH (10:19)
[2017-09-17] MEDS: LOSARTAN POTASSIUM 50 MG TAB PO SCH (10:19)
[2017-09-17] MEDS: PANTOprazole SOD 40 MG TAB PO SCH (10:19)
[2017-09-17] MEDS: DULOXETINE HCL 60 MG CAP PO SCH (10:19)
[2017-09-17] MEDS: BuPROPion XL 150 MG TABCR PO SCH (10:19)
--- NOTE | 2017-09-17 18:55 | EXERCISE STRESS ECHO ---
*NOTICE TO RECEIVING GREEN PARTY AGENCY This information is strictly Confidential and protected under [place] law. [place] law prohibits you from making any further disclosure of this information unless further disclosure is expressly permitted by the written consent of the person to whom it pertains or is authorized by law. A general authorization for the release of medical or other information is not sufficient for this purpose. Hospital accepts no responsibility if the information is made available to any other person, INCLUDING THE PATIENT. Interpretation Summary * Name: ANNETTE ROSALES Study Date: 09/17/2017 06:24 AM BP: 152/76 mmHg * Patient Location: .[facility]\S\N276\S\2 HR: 67 * : 1950 (M/d/yyyy) Gender: Female Height: 63 in * Age: 67 yrs Ethnicity: CA Weight: 139 lb * Ordering Physician: Casper Oneal * Referring Physician: Polo Meraz * Performed By: Yi Burr RCS * * Reason For Study: CHEST PAIN * BSA: 1.7 m2 * -- Conclusions -- * Stress Echo: * 1. Negative stress echo for ischemia at 98 % MPHR. * 2. Negative exercise ECG for ischemia at 98 % MPHR. * 3. Appropriate blood pressure response to exercise. * 4. No arrhythmia. * 5. Study terminated due to fatigue. No chest pain reported. * 6. Below average exercise tolerance. Procedure Details * ECHOEX, CPT #[id number] Left Ventricle * The left ventricle is normal in size. * Apical 2 chamber images were technically difficult. * There is normal left ventricular wall thickness. * Left ventricular systolic function is normal. * The left ventricular ejection fraction increases normally with stress. The left ventricular end-systolic cavity size reduces post-stress (normal response). The left ventricular wall motion with stress is normal. * Resting wall motion: Normal. Stress wall motion: Appropriate increase in Left ventricular systolic function and decrease in cavity size. No stress induced segmental wall motion abnormalities. * No regional wall motion abnormalities noted. Stress Parameters * NSR at 73 bpm. * Stress ECG: No ST changes. No arrhythmias. * No arrhythmia were noted with stress. * The stress portion of this study was personally supervised by the undersigned interpreting physician. * Rest heart rate was '67' BPM. * Rest blood pressure was '152/76' * Maximum heart rate achieved was 150 bpm. * Maximum heart rate was 98 % of maximum age-predicted heart rate. * Maximum blood pressure was '178/78' * Total exercise time was '03:46' * Maximum exercise MET level achieved was '5.50' METS * Maximum treadmill speed was '2.50' miles per hour. * Maximum treadmill elevation was '12.00'% grade. * Exercise was terminated due to 'fatigue' * Normal blood pressure response to exercise. MMode 2D Measurements and Calculations IVSd 0.95 cm LVIDd 4.7 cm LVIDs 3.0 cm LVPWd 0.81 cm IVS/LVPW 1.2 FS 34.6 % EDV(Teich) 100.4 ml ESV(Teich) 36.3 ml EF(Teich) 63.8 % EDV(cubed) 101.2 ml ESV(cubed) 28.3 ml EF(cubed) 72.1 % LV mass(C)d 136.7 grams LV mass(C)dI 82.5 grams/m\S\2 SV(Teich) 64.0 ml SI(Teich) 38.6 ml/m\S\2 SV(cubed) 73.0 ml SI(cubed) 44.0 ml/m\S\2
--- NOTE | 2017-09-20 14:13 | Discharge Summary ---
Discharge Summary Date of Service Sep 20, 2017. Discharge Summary Admission Date: Sep 15, 2017 at 18:36 Discharge Date: Sep 17, 2017 Discharge Disposition: Home Principal Diagnosis: chest pain/epigastric pain - suspected to be GI in origin Problems/Secondary Diagnoses: 1. HTN 2. hypothyroidism 3. fibromyalgia 4. Crohns disease s/p R hemicolectomy 1968 and bowel adhesion lysis surgery 1991 - followed by [facility] 5. h/o Vit D deficiency 6. depression 7. BETH 8. insomnia Immunizations: Have You Had Influenza Vaccine: No History of Tetanus Vaccine?: Yes Tetanus Immunization Date: Feb 23, 2011 History of Pneumococcal: No History of Hepatitis B Vaccine: No Procedures: 1. exercise stress echocardiogram: -- Conclusions -- * Stress Echo: * 1. Negative stress echo for ischemia at 98 % MPHR. * 2. Negative exercise ECG for ischemia at 98 % MPHR. * 3. Appropriate blood pressure response to exercise. * 4. No arrhythmia. * 5. Study terminated due to fatigue. No chest pain reported. * 6. Below average exercise tolerance. 2. 2D echocardiogram: Conclusions -- Compared [facility] 12/17/14 study, no significant change. The left ventricle is normal in size. The left ventricular wall motion is normal. Ejection Fraction = 55-60%. Left ventricular systolic function is normal. There is borderline concentric left ventricular hypertrophy. There is mild mitral regurgitation. The left atrial size is normal. There is mild tricuspid regurgitation. Right ventricular systolic pressure is normal. Medication Reconciliation New Medications: Sucralfate (Carafate) 1 Gm Tab 1 GM PO ACHS for 7 Days, #28 TAB 0 Refills Pantoprazole (Pantoprazole Sodium) 40 Mg Tab 40 MG PO QAM, #30 TAB 2 Refills Continued Medications: Aripiprazole (Abilify) 5 Mg Tab 2.5 MG PO QAM, TAB Bupropion Hcl (Wellbutrin Xl) 300 Mg Tab 150 MG PO QAM, TAB Duloxetine Hcl (Cymbalta) 60 Mg Cap 60 MG PO QAM, CAP Levothyroxine Sodium (Levothyroxine Sodium) 100 Mcg Tab 100 MCG PO QAM, TAB 3 Refills Losartan Potassium (Cozaar) 100 Mg Tab 100 MG PO QAM, TAB Trazodone Hcl (Trazodone) 50 Mg Tab 50 MG PO HS, TAB Referrals At Discharge Follow up Referrals: Hand Router Operator Referral - Please Call For Appointment with Karlos Luis , DO Discharge Exam Physical Exam: General Appearance: WD/WN, no apparent distress ENT: pharynx normal Neck: no JVD Respiratory/Chest: chest non-tender, lungs clear, normal breath sounds, no respiratory distress, no accessory muscle use Cardiovascular: regular rate, rhythm, no gallop, no murmur, normal peripheral pulses Abdomen / GI: normal bowel sounds, non tender, soft, no organomegaly Extremities: no pedal edema Neurologic/Psychiatric: alert, oriented x 3 Skin: + rash Hospital Course HISTORY OF PRESENT ILLNESS: This is a 67yo female with PMHx of HTN, Crohns disease, Fibromyalgia, Vit D deficiency, depression, BETH, insomnia, hypothyroidism, who presented to the ER with acute onset of chest pain x 1 day. She was seen by her PCP, Dr. Meraz who sent her to the ER. Pt reports her pain started around 1 pm when she was laying flat in bed resting. The pain is in her left chest and radiates towards the center, she does have jaw pain. Patient denies any radiation to her back or down her arms. Other symptoms she is experiencing included headache, and increasing shortness of breath with minimal exertion. Pt notes she has been increasingly weak and with generalized fatigue over the last few weeks. She admits to taking rolaids during the night for the past few months and admits to a burning sensation, nausea. She does not take a routine PPI. Pt also reports urinary symptoms of burning and increased frequency x 1 week. She has not taken any meds for UTI, but has been increasing her fluid intake. She has attributed fatigue to her psychiatric meds which [facility]. Her Wellbutrin was recently increased to 150 mg about 2 weeks ago to improve her energy level. Otherwise her mood has been fairly good. HOSPITAL COURSE: The patient's chest pain on several occasions abated with use of SL nitroglycerin. Despite the response to nitroglycerin 4 sets of troponins were negative, EKGs ( even during episodes of pain) were without ischemic changes, 2D echo was normal , and telemetry was normal. She underwent exercise stress echocardiogram that was negative for any wall motion abnormalities. Furthermore she did not have any symptoms (chest pain) during the stress test. I suspect that her pain is GI in origin (GERD, esophageal spasm, esophagitis/ gastritis, etc) and I recommended she follow-up with Dr. Karlos Luis, her primary case sealer with [facility]. EGD may be needed but would defer that decision to GI. At discharge I recommended PPI as well as a short course of carafate. All other medical problems remained stable while here. Urine culture was ultimately negative for UTI. Work-up for fatigue was normal including lyme's testing, iron studies, vitamin b12 level, cbc, cmp, etc. Total Time Spent: Greater than 30 minutes This includes examination of the patient, discharge planning, medication reconciliation, and communication with other providers. Discharge Instructions Please refer to the electronic Patient Visit Report (Discharge Instructions) for additional information. Follow-Up 1. see PCP within [address] Luis - GI - within 2 weeks Additional Copies To Karlos Luis DO; Polo Meraz M.D.
== END 2017-09-17 11:09 | disposition home or self-care (01) ==
LOC: EDBD 17:09 → C.EDC 17:10 → C.MED 18:36 → UNDOADMOB 18:36 → ENRESERV 19:21
PROVIDERS: ADMIT Internal Medicine; ATTEND Internal Medicine
DX: R07.9 Chest pain, unspecified (principal); R53.1 Weakness; M79.7 Fibromyalgia; E03.9 Hypothyroidism, unspecified; K50.90 Crohn's disease, unspecified, without complications; I10 Essential (primary) hypertension; E55.9 Vitamin D deficiency, unspecified; F32.9 Major depressive disorder, single episode, unspecified; G47.00 Insomnia, unspecified; K21.9 Gastro-esophageal reflux disease without esophagitis

== ENCOUNTER → 2017-12-29 | Outpatient (CLI) | payer OTHER, BC ==
[~2017-12-29] MED LIST changes: +ABL/5 PO; +LEVO100T7 PO; +LOSA1TAB38 PO; -MEPE1TAB PO; -POLY335040 PO; +PRT40 PO; +SUCR1TAB29 PO; +TRAZ50TA35 PO; -ULT/50 PO
== END | disposition home or self-care (01) ==
LOC: C.LABMFLN 10:00
PROVIDERS: ATTEND Psychiatry & Neurology Psychiatry
DX: Z79.899 Other long term (current) drug therapy (principal)

== ENCOUNTER → 2018-01-10 | Outpatient (CLI) | payer OTHER, BC | END | disposition home or self-care (01) | LOC: C.LABMFLN 10:21 | PROVIDERS: ATTEND Psychiatry & Neurology Psychiatry | DX: Z79.899 Other long term (current) drug therapy (principal) ==

== ENCOUNTER 2018-03-22 10:01 | Inpatient (IN) | payer OTHER, BC ==
[~2018-03-22] VITALS: Ht 160 cm; Wt 64.2 kg
[2018-03-22] VITALS (8 sets, daily range): BP systolic 113–157; BP diastolic 71–91; PULSE 88–120; TEMP 36.4–39.4; O2SAT 86–95; Ht 160 cm; Wt 64.2 kg
[~2018-03-22 10:01] MED LIST changes: +PANT1TAB4 PO; -PRT40 PO
[2018-03-22] MEDS ORDERED: ONDANSETRON INJ 2 MG/ML 2 ML VIAL IV STA (10:36)
[2018-03-22] MEDS ORDERED: HYDROmorphone INJ 0.5 MG/0.5 ML SYR IV STA (10:36)
[2018-03-22] MEDS ORDERED: ACETAMINOPHEN 500 MG TAB PO STA (10:36)
[2018-03-22] MEDS ORDERED: SODIUM CHLORIDE 0.9% 1000ML 1,000 ML IV STA (10:36)
[2018-03-22] MEDS ORDERED: PANT40TA PO (10:45)
[2018-03-22 11:43] LABS: BASO % 0.8 %; BASO ABS # 0.04 K/uL (0-0.2); EOS % 2.6 %; EOS ABS # 0.14 K/uL (0-0.5); HEMATOCRIT 38.8 % (37-47); HEMOGLOBIN 12.5 g/dL (12.0-16.0); IG# 0.01 K/uL (0.00-0.02); LYMPH % 10.5 %; LYMPH ABS # 0.56 K/uL (1.2-3.4); MEAN CELL VOLUME 85.3 fL (80-100); MEAN CORPUSCULAR HEMOGLOBIN 27.5 pg (25-34); MEAN CORPUSCULAR HGB CONC 32.2 g/dl (32-36); MEAN PLATELET VOLUME 9.6 fL (7.4-10.4); MONO % 7.7 %; MONO ABS # 0.41 K/uL (0.11-0.59); NEUT % 78.2 %; NEUT ABS # 4.15 K/uL (1.4-6.5); PLATELET COUNT 221 K/uL (130-400); RED CELL DISTRIBUTION WIDTH CV 13.9 % (11.5-14.5); RED CELL DISTRIBUTION WIDTH SD 43.2 fL (36.4-46.3); WHITE BLOOD COUNT 5.31 K/uL (4.8-10.8)
[2018-03-22 11:52] LABS: PTT PATIENT 26.4 SECONDS (21.0-31.0)
[2018-03-22 12:06] LABS: ALBUMIN 3.5 gm/dl (3.4-5.0); ALKALINE PHOSPHATASE 294 U/L (45-117); ALT/SGPT 237 U/L (12-78); AST/SGOT 179 U/L (15-37); BLOOD UREA NITROGEN 6 mg/dl (7-18); CALCIUM 8.4 mg/dl (8.5-10.1); CARBON DIOXIDE 25 mmol/L (21-32); CKMB < 1.0 ng/ml (0.5-3.6); CREATININE 0.83 mg/dl (0.60-1.20); GLUCOSE 93 mg/dl (70-99); POTASSIUM 4.1 mmol/L (3.5-5.1); SODIUM 134 mmol/L (136-145); TOTAL PROTEIN 7.4 gm/dl (6.4-8.2)
--- NOTE | 2018-03-22 12:07 | DIAGNOSTIC IMAGING REPORT ---
CHEST ONE VIEW PORTABLE HISTORY: 68 years-old Female Sepsis acute sepsis with fever and chills COMPARISON: Chest radiograph 12/14/2017 TECHNIQUE: Portable AP view of the chest FINDINGS: Moderate hemidiaphragmatic elevation with linear subsegmental bibasilar opacities. Cardiac silhouette is upper limits of normal in size. There is no pneumothorax, pleural effusion or overt pulmonary edema. Multiple remote left-sided healed rib fractures. Surgical clips of the right upper quadrant abdomen. IMPRESSION: 1. No acute process. 2. Moderate right hemidiaphragmatic elevation with subsegmental bibasilar opacities suggesting atelectasis. The above report was generated using voice recognition software. It may contain grammatical, syntax or spelling errors. Electronically signed by: Bob Singh M.D. 03/22/2018 12:06 PM Dictated Date/Time: 03/22/2018 12:04 PM
--- NOTE | 2018-03-22 12:59 | History and Physical ---
History & Physical Date & Time of Service: Mar 22, 2018 at 12:59 Chief Complaint: Body Pain, Chills, Fever, Nausea Primary Care Physician: Polo Meraz M.D. History of Present Illness Patient is a very poor historian and it is very difficult to tease out information. Patient was hospitalized January for 4 days at [facility] for sepsis of unknown origin as per patient. She does not remember why she was treated, however, she does mention she had an elevated lactic acid. Once she was discharged, she stated that she felt beter, but intermittently once she was home, she then began to have symptoms of myalgias, fever, shaking, cramping throbbing moderate pain in shoulder, thighs, hips, and neck. The fever would occur for a period of 3 days and then subside. Patient states aside from the subjective fevers, the pain would last about 1 day. Patient reports that this has been ongoing for past month This again began early this evening at 1:45 am, and patient felt she was getting worse which is why she decided to go to the ER. Past Medical/Surgical History Medical Problems: (1) Abdominal pain (2) Chest pain (3) Crohn's disease (4) Hypertension (5) Precordial chest pain PMH: HTN Crohns disease s/p R hemicolectomy 1968 and bowel adhesion lysis surgery 1991 Fibromyalgia Vit D deficiency depression BETH insomnia hypothyroidism Family History Mental Health: Dad and brother with depression Substance Abuse: Dad and brother with depression son with a history of heroin abuse Social History Smoking Status: Never Smoker Drug Use: none Marital Status: Housing status: lives with family Occupational Status: retired Immunizations History of Influenza Vaccine: No History of Tetanus Vaccine?: Yes Tetanus Immunization Date: Feb 23, 2011 History of Pneumococcal: No History of Hepatitis B Vaccine: No Allergies Coded Allergies: Codeine (Verified Adverse Reaction, Intermediate, AGITATION, HYPERACTIVITY , UNEASINESS, 03/22/18) Droperidol (Verified Adverse Reaction, Intermediate, AGITATION, HYPERACTIVITY, UNEASINESS, 03/22/18) Ketorolac (Verified Adverse Reaction, Intermediate, AGITATION, HYPERACTIVITY, 03/22/18) Oxycodone (Verified Adverse Reaction, Intermediate, PERCOCET/PERCODAN= AGITATION, UNEASINESS, HYPERACTIVITY, 03/22/18) Prochlorperazine (Verified Adverse Reaction, Intermediate, AGITATION, HYPERACTIVITY, 03/22/18) Propoxyphene (Verified Adverse Reaction, Intermediate, AGITATION, HYPERACTIVITY, 03/22/18) Replaces DARVOCET-N 10 Home Medications Scheduled Aripiprazole (Abilify), 2.5 MG PO QAM Duloxetine Hcl (Cymbalta), 60 MG PO QAM Levothyroxine Sodium (Levothyroxine Sodium), 100 MCG PO QAM Losartan Potassium (Cozaar), 100 MG PO QAM Scheduled PRN Pantoprazole (Protonix), 40 MG PO QAM PRN for GI Upset Trazodone Hcl (Trazodone), 50 MG PO HS PRN for Sleep Review of Systems Constitutional: + fever, + chills, + sweats, + fatigue, No weight loss Eyes: No worsening of vision ENT: No hearing loss Respiratory: + cough Cardiovascular: No chest pain Abdomen: + nausea, No pain Musculoskeletal: + muscle pain, No joint pain Neurologic: No paralysis Psychiatric: No depression symptoms Endocrine: + fatigue Hematologic / Lymphatic: No abnormal bleeding/bruising Integumentary: No rash Allergic / Immunologic: No environmental allergies Physical Exam Vital Signs Date Time Temp Pulse Resp B/P (MAP) Pulse Ox O2 Delivery O2 Flow Rate FiO2 03/22/18 12:18 37.3 03/22/18 11:40 98 18 119/82 93 Room Air 03/22/18 10:24 92 03/22/18 10:22 95 22 144/77 97 Room Air 03/22/18 10:21 94 Room Air 03/22/18 10:06 37.9 103 18 137/96 96 Room Air General Appearance: WD/WN, + mild distress Head: normocephalic Eyes: normal inspection ENT: hearing grossly normal Neck: supple, no adenopathy Respiratory/Chest: chest non-tender, lungs clear, normal breath sounds Cardiovascular: regular rate, rhythm, no JVD Abdomen/GI: normal bowel sounds, non tender, soft Back: normal inspection Extremities/Musculoskelatal: normal inspection Neurologic/Psych: alert, oriented x 3 Skin: normal color Lymphatic: no adenopathy Diagnostics Laboratory Results Results Past 24 Hours Test 03/22/18 11:28 03/22/18 11:52 Range/Units White Blood Count 5.31 4.8-10.8 K/uL Red Blood Count 4.55 4.2-5.4 M/uL Hemoglobin 12.5 12.0-16.0 g/dL Hematocrit 38.8 37-47 % Mean Corpuscular Volume 85.3 80-100 fL Mean Corpuscular Hemoglobin 27.5 25-34 pg Mean Corpuscular Hemoglobin Concent 32.2 32-36 g/dl Platelet Count 221 130-400 K/uL Mean Platelet Volume 9.6 7.4-10.4 fL Neutrophils (%) (Auto) 78.2 % Lymphocytes (%) (Auto) 10.5 % Monocytes (%) (Auto) 7.7 % Eosinophils (%) (Auto) 2.6 % Basophils (%) (Auto) 0.8 % Neutrophils # (Auto) 4.15 1.4-6.5 K/uL Lymphocytes # (Auto) 0.56 1.2-3.4 K/uL Monocytes # (Auto) 0.41 0.11-0.59 K/uL Eosinophils # (Auto) 0.14 0-0.5 K/uL Basophils # (Auto) 0.04 0-0.2 K/uL RDW Standard Deviation 43.2 36.4-46.3 fL RDW Coefficient of Variation 13.9 11.5-14.5 % Immature Granulocyte % (Auto) 0.2 % Immature Granulocyte # (Auto) 0.01 0.00-0.02 K/uL Prothrombin Time 10.4 9.0-12.0 SECONDS Prothromb Time International Ratio 1.0 0.9-1.1 Activated Partial Thromboplast Time 26.4 21.0-31.0 SECONDS Partial Thromboplastin Ratio 1.0 Sodium Level 134 136-145 mmol/L Potassium Level 4.1 3.5-5.1 mmol/L Chloride Level 100 98-107 mmol/L Carbon Dioxide Level 25 21-32 mmol/L Anion Gap 9.0 3-11 mmol/L Blood Urea Nitrogen 6 7-18 mg/dl Creatinine 0.83 0.60-1.20 mg/dl Est Creatinine Clear Calc Drug Dose 58.7 ml/min Estimated GFR () 84.0 Estimated GFR (Non- 72.5 BUN/Creatinine Ratio 7.1 10-20 Random Glucose 93 70-99 mg/dl Calcium Level 8.4 8.5-10.1 mg/dl Total Bilirubin 0.6 0.2-1 mg/dl Aspartate Amino Transf (AST/SGOT) 179 15-37 U/L Alanine Aminotransferase (ALT/SGPT) 237 12-78 U/L Alkaline Phosphatase 294 45-117 U/L Total Creatine Kinase 46 26-192 U/L Creatine Kinase MB < 1.0 0.5-3.6 ng/ml Creatine Kinase MB Ratio 0-3.0 Troponin I < 0.015 0-0.045 ng/ml Total Protein 7.4 6.4-8.2 gm/dl Albumin 3.5 3.4-5.0 gm/dl Globulin 3.9 2.5-4.0 gm/dl Albumin/Globulin Ratio 0.9 0.9-2 Urine Color YELLOW Urine Appearance CLEAR CLEAR Urine pH 5.0 4.5-7.5 Urine Specific [place] 1.014 1.000-1.030 Urine Protein NEG NEG Urine Glucose (UA) NEG NEG Urine Ketones TRACE NEG Urine Occult Blood NEG NEG Urine Nitrite NEG NEG Urine Bilirubin NEG NEG Urine Urobilinogen NEG NEG Urine Leukocyte Esterase NEG NEG Urine WBC (Auto) 1-5 0-5 /hpf Urine RBC (Auto) 0-4 0-4 /hpf Urine Hyaline Casts (Auto) 1-5 0-5 /lpf Urine Epithelial Cells (Auto) 10-20 0-5 /lpf Urine Bacteria (Auto) NEG NEG Microbiology Results 03/22/18 Blood Culture, Received Pending 03/22/18 Blood Culture, Received Pending Diagnostic Radiology CHEST ONE VIEW PORTABLE HISTORY: 68 years-old Female Sepsis acute sepsis with fever and chills COMPARISON: Chest radiograph 12/14/2017 TECHNIQUE: Portable AP view of the chest FINDINGS: Moderate hemidiaphragmatic elevation with linear subsegmental bibasilar opacities. Cardiac silhouette is upper limits of normal in size. There is no pneumothorax, pleural effusion or overt pulmonary edema. Multiple remote left-sided healed rib fractures. Surgical clips of the right upper quadrant abdomen. IMPRESSION: 1. No acute process. 2. Moderate right hemidiaphragmatic elevation with subsegmental bibasilar opacities suggesting atelectasis. EKG Normal sinus rhythm Normal ECG When compared with ECG of 22-MAR-2018 10:20, No significant change was found Confirmed by TATIANA EDGAR ([id number]) on 03/22/2018 7:17:31 PM Impression Assessment and Plan Myalgias, fever, chills, nausea in a 68 yo female who was fecently admitted to [facility] for sepsis of unknown origin (as per patient) Patient was admitted to [facility] for sepsis Patient states she had a lactic acid and was treated but with no source. Currently patient has no signs of SIRS. Except for tachycardia. Will check blood cultures. Patient has no other symptoms. May be viral Place regular diet. monitor vitals. Will hold antibiotics at this time. Recommend obtaining records from [place]. In regards to pain, will place patient on tramadol and zofran PRN for nausea. HTN -will continue current meds. Hx Crohns disease - Stable - Pt follows with Dr. Luis as an outpatient. GERD Continue home med Vit D deficiency - Check level Hypothyroidism - Continue levothyroxine DVT ppx: teds, scds, lovenox CODE STATUS: Full Code Update 21:00 Temp was elevated at 103 F Patient was also tachycardic. Patient began to cough as well. Will place patient on ceftriaxone and azithromycin. Will obtain ct scan images of her chest abd/pelvis to look for occult malignancy given her lack of symptoms. Perhaps occult malignancy is causing her fevers. Advanced Directives Existing Advance Directive: No Existing Living Will: No Existing Power of Business Services Sales Representative: No Existing Health Care Proxy: No Resuscitation Status VTE Prophylaxis Will order VTE Prophylaxis: Yes
--- NOTE | 2018-03-22 13:07 | EMERGENCY ROOM VISIT NOTE ---
History Report prepared by Noah: Aleja Hawkins Under the Supervision of: Dr. Delroy Cruz M.D. First contact with patient: 10:14 Chief Complaint: ILLNESS Stated Complaint: BODY PAIN, CHILLS, FEVER, NAUSEA History of Present Illness The patient is a 68 year old female who presents to the Emergency Room with complaints of persistent fever starting last night. The patient was recently admitted to [facility] for 4 days with sepsis from an unknown source. She started having fever, chills, nausea, and body aches last night. She has not taken anything for her fever. She denies any abdominal pain. She has a history of Crohn's disease. Source of History: patient Onset: last night Position: other (temperature) Quality: other (fever) Timing: other (persistent) Associated Symptoms: + chills, + nausea, No abdominal pain Note: Pt reports body aches. Review of Systems See HPI for pertinent positives & negatives. A total of 10 systems reviewed and were otherwise negative. Past Medical & Surgical Medical Problems: (1) Abdominal pain (2) Chest pain (3) Crohn's disease (4) Fever of unknown origin (5) Hypertension Family History No pertinent family history stated Social History Smoking Status: Never Smoker Drug Use: none Marital Status: Occupation Status: retired Current/Historical Medications Scheduled Aripiprazole (Abilify), 2.5 MG PO QAM Doxycycline Hyclate (Doxycycline Hyclate), 100 MG PO BID Duloxetine Hcl (Cymbalta), 60 MG PO QAM Lactobacillus Acidophilus (Floranex), 4 TAB PO TIDM Levothyroxine Sodium (Levothyroxine Sodium), 100 MCG PO QAM Losartan Potassium (Cozaar), 100 MG PO QAM Metronidazole (Flagyl), 500 MG PO TID Vancomycin Hcl (Vancomycin), 125 MG PO QID Scheduled PRN Cholestyramine (Cholestyramine Light), 4 GM PO BID@ PRN for Diarrhea Pantoprazole (Protonix), 40 MG PO QAM PRN for GI Upset Trazodone Hcl (Trazodone), 50 MG PO HS PRN for Sleep Allergies Coded Allergies: Codeine (Verified Adverse Reaction, Intermediate, AGITATION, HYPERACTIVITY , UNEASINESS, 03/22/18) Droperidol (Verified Adverse Reaction, Intermediate, AGITATION, HYPERACTIVITY, UNEASINESS, 03/22/18) Iodinated Diagnostic Agents (Verified Adverse Reaction, Intermediate, SHORTNESS OF BREATH, 03/23/18) oral CT contrast Ketorolac (Verified Adverse Reaction, Intermediate, AGITATION, HYPERACTIVITY, 03/22/18) Oxycodone (Verified Adverse Reaction, Intermediate, PERCOCET/PERCODAN= AGITATION, UNEASINESS, HYPERACTIVITY, 03/22/18) Prochlorperazine (Verified Adverse Reaction, Intermediate, AGITATION, HYPERACTIVITY, 03/22/18) Propoxyphene (Verified Adverse Reaction, Intermediate, AGITATION, HYPERACTIVITY, 03/22/18) Replaces DARVOCET-N 10 Physical Exam Vital Signs Date Time Temp Pulse Resp B/P (MAP) Pulse Ox O2 Delivery O2 Flow Rate FiO2 03/22/18 13:08 91 18 113/68 94 Room Air 03/22/18 12:18 37.3 03/22/18 11:40 98 18 119/82 93 Room Air 03/22/18 10:24 92 03/22/18 10:22 95 22 144/77 97 Room Air 03/22/18 10:21 94 Room Air 03/22/18 10:06 37.9 103 18 137/96 96 Room Air Physical Exam GENERAL: Awake, alert, well-appearing, in no acute distress HENT: Normocephalic, atraumatic. Oropharynx unremarkable. EYES: Normal conjunctiva. Sclera non-icteric. NECK: Supple. No nuchal rigidity. FROM. No JVD. RESPIRATORY: Clear to auscultation. CARDIAC: Regular rate, normal rhythm. Extremities warm and well perfused. Pulses equal. ABDOMEN: Soft, non-distended. No tenderness to palpation. No rebound or guarding. No masses. RECTAL: Deferred. MUSCULOSKELETAL: Chest examination reveals no tenderness. The back is symmetrical on inspection without obvious abnormality. There is no CVA tenderness to palpation. No joint edema. LOWER EXTREMITIES: Calves are equal size bilaterally and non-tender. No edema. No discoloration. NEURO: Normal sensorium. No sensory or motor deficits noted. SKIN: No rash or jaundice noted. Medical Decision & Procedures ER Provider Diagnostic Interpretation: X-ray results as stated below per interpretation by me and the radiologist: CHEST ONE VIEW PORTABLE HISTORY: 68 years-old Female Sepsis acute sepsis with fever and chills COMPARISON: Chest radiograph 12/14/2017 TECHNIQUE: Portable AP view of the chest FINDINGS: Moderate hemidiaphragmatic elevation with linear subsegmental bibasilar opacities. Cardiac silhouette is upper limits of normal in size. There is no pneumothorax, pleural effusion or overt pulmonary edema. Multiple remote left-sided healed rib fractures. Surgical clips of the right upper quadrant abdomen. IMPRESSION: 1. No acute process. 2. Moderate right hemidiaphragmatic elevation with subsegmental bibasilar opacities suggesting atelectasis. The above report was generated using voice recognition software. It may contain grammatical, syntax or spelling errors. Electronically signed by: Bob Singh M.D. 03/22/2018 12:06 PM Dictated Date/Time: 03/22/2018 12:04 PM Laboratory Results Test 03/22/18 11:28 03/22/18 11:36 03/22/18 11:52 Prothrombin Time 10.4 SECONDS (9.0-12.0) Prothromb Time International Ratio 1.0 (0.9-1.1) Activated Partial Thromboplast Time 26.4 SECONDS (21.0-31.0) Partial Thromboplastin Ratio 1.0 Total Creatine Kinase 46 U/L (26-192) Creatine Kinase MB < 1.0 ng/ml (0.5-3.6) Creatine Kinase MB Ratio (0-3.0) Troponin I < 0.015 ng/ml (0-0.045) Bedside Lactic Acid Venous 0.95 mmol/L (0.90-1.70) Urine Color YELLOW Urine Appearance CLEAR (CLEAR) Urine pH 5.0 (4.5-7.5) Urine Specific [place] 1.014 (1.000-1.030) Urine Protein NEG (NEG) Urine Glucose (UA) NEG (NEG) Urine Ketones TRACE (NEG) Urine Occult Blood NEG (NEG) Urine Nitrite NEG (NEG) Urine Bilirubin NEG (NEG) Urine Urobilinogen NEG (NEG) Urine Leukocyte Esterase NEG (NEG) Urine WBC (Auto) 1-5 /hpf (0-5) Urine RBC (Auto) 0-4 /hpf (0-4) Urine Hyaline Casts (Auto) 1-5 /lpf (0-5) Urine Epithelial Cells (Auto) 10-20 /lpf (0-5) Urine Bacteria (Auto) NEG (NEG) Date/Time Source Procedure Growth Status 03/22/18 11:28 Blood Blood Culture - Final NO GROWTH Complete Labs reviewed by ED physician. Medications Administered Medications (Trade) Dose Ordered Sig/Theresa Route Start Time Stop Time Status Last Admin Dose Admin Acetaminophen (Tylenol Tab) 1,000 mg NOW STAT PO 03/22/18 10:36 03/22/18 10:37 DC 03/22/18 10:36 1,000 MG Hydromorphone HCl (Dilaudid Inj) 0.5 mg NOW STAT IV 03/22/18 10:36 03/22/18 10:37 DC 03/22/18 10:36 0.5 MG Ondansetron HCl (Zofran Inj) 4 mg NOW STAT IV 03/22/18 10:36 03/22/18 10:37 DC 03/22/18 10:36 4 MG Sodium Chloride 1,000 ml @ 999 mls/hr Q1H1M STAT IV 03/22/18 10:36 03/22/18 11:36 DC 03/22/18 10:36 999 MLS/HR Lorazepam (Ativan Inj) 0.5 mg NOW STAT IV 03/22/18 13:11 03/22/18 13:12 DC 03/22/18 13:20 0.5 MG ECG Per My Interpretation Indication: other (sepsis) Rate (beats per minute): 92 Rhythm: normal sinus Findings: other (normal axis, normal intervals, no ST elevation or depression) ED Course 1026: Past medical records reviewed. The patient was evaluated in room B5. A complete history and physical examination was performed. 1228: Upon reexamination the patient is resting comfortably. I discussed results and treatment plan with the patient. She verbalizes agreement and understanding. The patient will be evaluated for further management. 1253: I discussed the patient's case with Dr. Lira, [facility] hospitalist. He has agreed to evaluate the patient for further management and care. Medical Decision Differential diagnosis: Etiologies such as viral syndrome, otitis, pharyngitis, pneumonia, influenza, meningitis, urinary tract infection, sepsis, bacteremia, as well as others were entertained. This is a 68-year-old female who presents emergency department complaining of fever. The patient was recently hospitalized at [facility] twice. I did obtain these records and did review them. The patient was apparently hospitalized for sepsis. I will note she does not appear to have an elevation in her white blood cell count here. She was given Tylenol as well as Dilaudid for her pain. I gave the patient the option of being discharged home however she would like to be admitted. I therefore did discuss case with the hospitalist service who agreed to see the patient. Patient and were in agreement with the treatment plan. Medication Reconcilliation Current Medication List: was personally reviewed by me Blood Pressure Screening Patient's blood pressure: Elevated blood pressure Referred to hospitalist Consults Time Called: [phone] Consulting Physician: Dr. Lira [facility] hospitalist Returned Call: [phone] I discussed the patient's case with him. He has agreed to evaluate the patient for further management and care. Impression Primary Impression: Fever Scribe Attestation The scribe's documentation has been prepared under my direction and personally reviewed by me in its entirety. I confirm that the note above accurately reflects all work, treatment, procedures, and medical decision making performed by me. Departure Information Dispostion Being Evaluated By Hospitalist Prescriptions Metronidazole (Flagyl) 500 Mg Tab 500 MG PO TID for 24 Days, #72 TAB Prov: Trev Salas D.OPeyton 03/25/18 Cholestyramine (Cholestyramine Light) 4 Gm Pack 4 GM PO BID@10,22 Y for Diarrhea MDD 2 doses, #20 PKT 0 Refills Prov: Trev Salas D.OPeyton 03/25/18 Vancomycin Hcl (Vancomycin) 125 Mg Cap 125 MG PO QID for 24 Days, #96 CAP 0 Refills Prov: Trev Salas D.O. 03/25/18 Lactobacillus Acidophilus (Floranex) 1 Tab Tab 4 TAB PO TIDM for 10 Days, #120 TAB 0 Refills Prov: Trev Salas D.O. 03/25/18 Doxycycline Hyclate (Doxycycline Hyclate) 100 Mg Cap 100 MG PO BID for 12 Days, #24 CAP 0 Refills Prov: Trev Salas D.O. 03/25/18 Referrals Polo Meraz M.D. (PCP) Patient Instructions My [facility] Problem Qualifiers Primary Impression: Fever Fever type: unspecified Qualified Codes: R50.9 - Fever, unspecified
[2018-03-22] MEDS ORDERED: LORAZEPAM 2 MG/ML 1 ML VIAL IV STA (13:11)
[2018-03-22] MEDS ORDERED: PANTOprazole SOD 40 MG TAB PO PRN (13:45)
[2018-03-22] MEDS ORDERED: IV FLUIDS COMPLETED PRN (14:30)
[2018-03-22] MEDS: HEPARIN SOD 5000 UNIT/0.5 ML CARP SQ SCH ×2 (16:00→23:53)
[2018-03-22] MEDS ORDERED: TRAMADOL HCL 50 MG TAB PO STA (17:30)
[2018-03-22] MEDS ORDERED: ONDANSETRON INJ 2 MG/ML 2 ML VIAL IV. ONE (20:02)
[2018-03-22] MEDS ORDERED: ONDANSETRON INJ 2 MG/ML 2 ML VIAL IV. PRN (20:15)
[2018-03-22] MEDS ORDERED: LACTATED RINGER'S 1000ML 1,000 ML IV SCH (21:15)
[2018-03-22] MEDS ORDERED: AZITHROMYCIN 250 MG TAB PO ONE (21:30)
[2018-03-22] MEDS ORDERED: OPTIRAY 320 IV PRN (21:30)
[2018-03-22] MEDS ORDERED: CEFTRIAXONE SOD INJ 500 MG in DEXTROSE 5% 50ML 50 ML IV SCH (22:00)
[2018-03-22] MEDS ORDERED: DiphenhydrAMINE HCL 50 MG/ML VIAL ONE (22:37)
[2018-03-22] MEDS ORDERED: DiphenhydrAMINE HCL 50 MG/ML VIAL IV STA (22:42)
[2018-03-22] MEDS ORDERED: DEXAMETHASONE INJ 10 MG in SYRINGE 0 ML IV STA (22:43)
[2018-03-22] MEDS ORDERED: NURSING VERBAL MED ORDER ONE (22:45)
[2018-03-22] MEDS ORDERED: IBUPROFEN 600 MG TAB PO PRN (23:00)
[2018-03-22] MEDS: SODIUM CHLORIDE 0.9% 1000ML 1,000 ML IV SCH (23:24)
[2018-03-23 02:29] LABS: HEP C IGG 13 YRS+OLDER_RFLX NEG (NEG)
[2018-03-23 03:38] VITALS: BP 116/78; PULSE 89; TEMP 36.5; O2SAT 97
[2018-03-23] MEDS: HEPARIN SOD 5000 UNIT/0.5 ML CARP SQ SCH ×3 (06:31→21:46)
[2018-03-23] MEDS: LEVOTHYROXINE 100 MCG TAB PO SCH (06:32)
[2018-03-23 07:40] LABS: BASO % 0.4 %; BASO ABS # 0.02 K/uL (0-0.2); HEMATOCRIT 35.7 % (37-47); HEMOGLOBIN 11.5 g/dL (12.0-16.0); IG# 0.02 K/uL (0.00-0.02); LYMPH % 11.2 %; LYMPH ABS # 0.52 K/uL (1.2-3.4); MEAN CELL VOLUME 85.4 fL (80-100); MEAN CORPUSCULAR HEMOGLOBIN 27.5 pg (25-34); MEAN CORPUSCULAR HGB CONC 32.2 g/dl (32-36); MEAN PLATELET VOLUME 9.8 fL (7.4-10.4); MONO % 2.8 %; MONO ABS # 0.13 K/uL (0.11-0.59); NEUT % 85.2 %; NEUT ABS # 3.96 K/uL (1.4-6.5); PLATELET COUNT 197 K/uL (130-400); RED CELL DISTRIBUTION WIDTH CV 13.9 % (11.5-14.5); RED CELL DISTRIBUTION WIDTH SD 43.2 fL (36.4-46.3); WHITE BLOOD COUNT 4.65 K/uL (4.8-10.8)
--- NOTE | 2018-03-23 07:48 | DIAGNOSTIC IMAGING REPORT ---
ABDOMEN AND PELVIS CT WITHOUT CONTRAST CT DOSE: 315.03 mGy.cm HISTORY: Acutely elevated LFTs abnormal LFT's TECHNIQUE: Multiaxial CT images of the abdomen and pelvis were performed without contrast. A dose lowering technique was utilized adhering to the principles of ALARA. COMPARISON STUDY: CT abdomen and pelvis 02/25/2012. FINDINGS: Subsegmental consolidative opacities about the lung bases, right greater than left suggest atelectasis/scarring. There is a mucous plugging are noted within the lingula, image 11 series 3. No pneumatosis or pneumoperitoneum. Imaged inferior cardiac chambers are unremarkable. 5 mm epicardial lymph node on image 96 series 3 previously measured 4 mm. Prior cholecystectomy. The liver, spleen and right adrenal gland are unremarkable. There is mild nodular thickening of the left adrenal gland. No intrahepatic biliary ductal dilation. Kidneys, ureters and bladder are unremarkable. Prior hysterectomy. No adnexal mass lesions. Aorta and IVC appear unremarkable. There are no pathologically enlarged lymph nodes identified. Moderate hiatal hernia. No bowel obstruction. There are several fluid-filled loops of small bowel in the midabdomen which are likely physiologic. Moderate stool volume about the rectum and sigmoid. There are scattered air-fluid levels throughout the large bowel. Postoperative changes about the cecum. Appendix is surgically absent. Asymmetric atrophy of the right rectus musculature. No ascites or mesenteric inflammatory changes. Imaged breast parenchyma appears unremarkable. Mild nonspecific subcutaneous stranding about the right lower anterior abdominal wall. Small fat filled periumbilical hernia, diastases 1.4 cm. Multiple healed remote left-sided chronic rib deformities. IMPRESSION: 1. No acute intra-abdominal or intrapelvic abnormality identified. 2. Prior appendectomy, cholecystectomy and hysterectomy. 3. No bowel obstruction or focal bowel wall thickening. 4. Moderate sized hiatal hernia. Electronically signed by: Bob Singh M.D. 03/23/2018 7:47 AM Dictated Date/Time: 03/23/2018 7:22 AM
[2018-03-23 07:55] VITALS: BP 105/65; PULSE 78; TEMP 36.6; O2SAT 91
[2018-03-23 08:14] LABS: ALBUMIN 3.1 gm/dl (3.4-5.0); CALCIUM 8.5 mg/dl (8.5-10.1); CREATININE 0.77 mg/dl (0.60-1.20); POTASSIUM 3.9 mmol/L (3.5-5.1); TOTAL PROTEIN 6.9 gm/dl (6.4-8.2)
[2018-03-23] MEDS: LOSARTAN POTASSIUM 50 MG TAB PO SCH (08:22)
[2018-03-23] MEDS: ARIPIprazole TAB 5 MG TAB PO SCH (08:22)
[2018-03-23] MEDS: DULOXETINE HCL 60 MG CAP PO SCH (08:23)
[2018-03-23] MEDS: TRAMADOL HCL 50 MG TAB PO PRN ×2 (08:27→12:14)
[2018-03-23] MEDS: CEFTRIAXONE SOD INJ 1,000 MG in DEXTROSE 5% 50ML 50 ML IV SCH (09:16)
[2018-03-23] MEDS: SODIUM CHLORIDE 0.9% 1000ML 1,000 ML IV SCH (09:16)
[2018-03-23] MEDS ORDERED: DOXYCYCLINE HYCLATE 100 MG CAP PO STA (10:11)
[2018-03-23] MEDS ORDERED: OPTIRAY 320 IV PRN (10:45)
--- NOTE | 2018-03-23 11:42 | DIAGNOSTIC IMAGING REPORT ---
(CHEST) THORAX WITHOUT CT DOSE: 186.14 mGy.cm HISTORY: Fever, night sweats, weight loss, 1 month TECHNIQUE: Multiaxial CT images of the chest were performed without contrast. A dose lowering technique was utilized adhering to the principles of ALARA. COMPARISON: None. FINDINGS: Findings of a diffuse soft tissue edematous as well as infiltrative change superior aspect left chest wall to include components of the superior margin of the left breast. This extends a radiographic area of approximately 13 x 5 cm. Although a linear fluid component is present, the bulk of this appears to been a nondrainable collection and/or cellulitis. No associated skin thickening and/or minimal skin thickening. It extends superiorly to the left supraclavicular region. There is radiopaque density medially superior to the left mid clavicle measuring 11 mm. This is of uncertain significance. IMPRESSION: 1. Diffuse cellulitis and/or infiltrative process involving the left superior chest wall and left supraclavicular region. 2. This extends over region of approximately 13 x 5 x 7 cm 3. Although there is a small fluid component, the appearance overall suggests a nonspecific cellulitis. An infiltrative neoplastic process and/or inflammatory neoplastic process is not excluded. 4. 11 Millimeters soft tissue radiopaque density medially superior to the midshaft left clavicle of uncertain significance. I Cannot exclude the possibility of a foreign body 5. Several old left rib fractures as well as an old fracture midshaft left clavicle. 6. No evidence for drainable abscess or collection. The above report was generated using voice recognition software. It may contain grammatical, syntax or spelling errors. Electronically signed by: Levi Marshall M.D. 03/23/2018 11:41 AM Dictated Date/Time: 03/23/2018 11:34 AM
[2018-03-23 12:13] VITALS: BP 108/70; PULSE 78; TEMP 36.5; O2SAT 92
[2018-03-23] MEDS ORDERED: NURSING VERBAL MED ORDER ONE (12:15)
[2018-03-23] MEDS ORDERED: TRAMADOL HCL 50 MG TAB PO PRN (12:30)
--- NOTE | 2018-03-23 15:47 | Progress Note ---
Subjective Date of Service: Mar 23, 2018. Subjective Pt evaluation today including: conversation w/ patient, physical exam, lab review, conversation w/ regulatory services consultant, review of inpatient medication list Pain: diffuse muscle aches, pain in left upper chest PO Intake: adequate Voiding: no voiding problems patient had fevers last night but nothing since midnight she says that the intermittent fevers have been going on for one month, not every day but more often than not associated with night sweats she has lost weight but admits to eating less because she was started on Abilify and was concerned that it would cause weight gain has been having muscle aches, diffuse, joint pains, diffuse, associated with the fevers no cough, but she does admit to increased dyspnea on exertion she is in the aceves often, walks her dogs in the aceves, has not seen ticks on her no recent travel she has two dogs, two cats, no cat scratches, no feral cats around her house no one else sick at home she has not noticed enlarged lymph nodes WBC normal, ESR high at 39, CRP high at 9 AST and ALT down slightly, Alk phos still high, bilirubin normal CT chest reviewed with radiologists, shows left upper chest wall edema, possible foreign body? no real cellulitis re-examined pain, skin edematous, soft, mild tenderness, noticed that peripheral IV in upper left arm adjacent to edematous area, infiltrate? asked RN to move IV site Problem List Medical Problems: (1) Fever Status: Acute (2) Precordial chest pain Status: Acute Review of Systems Constitutional: + fever, + sweats, + weight loss, + weakness, + fatigue Respiratory: + shortness of breath, + dyspnea on exertion Musculoskeletal: + joint pain, + muscle pain All Other Systems: Reviewed and Negative Medications Current Inpatient Medications Medications (Trade) Dose Ordered Sig/Theresa Route Start Time Stop Time Status Last Admin Dose Admin Heparin Sodium (Porcine) (Heparin Sq 5000 Unit/0.5ml) 5,000 unit Q8 SQ 03/22/18 16:00 04/21/18 15:59 03/22/18 23:53 5,000 UNIT Aripiprazole (Abilify Tab) 2.5 mg QAM PO 03/23/18 08:00 04/22/18 08:59 03/23/18 08:22 2.5 MG Duloxetine HCl (Cymbalta Cap) 60 mg QAM PO 03/23/18 08:00 04/22/18 08:59 03/23/18 08:23 60 MG Levothyroxine Sodium (Synthroid Tab) 100 mcg DAILYBB PO 03/23/18 06:00 04/22/18 06:59 03/23/18 06:32 100 MCG Losartan Potassium (coZAAR TAB) 100 mg QAM PO 03/23/18 08:00 04/22/18 08:59 03/23/18 08:22 100 MG Pantoprazole Sodium (Protonix Tab) 40 mg QAM PRN PO 03/22/18 13:45 04/21/18 13:44 Trazodone HCl (Desyrel Tab) 50 mg HS PRN PO 03/22/18 13:45 04/21/18 13:44 Miscellaneous (Iv Fluids Completed) 1 ea PRN PRN N/A 03/22/18 14:30 03/22/19 14:29 Ondansetron HCl (Zofran Inj) 4 mg Q6H PRN IV. 03/22/18 20:15 04/21/18 20:14 03/22/18 22:23 4 MG Ioversol (Optiray 320) 111 ml UD PRN IV 03/22/18 21:30 03/26/18 21:29 Ibuprofen (Motrin Tab) 600 mg Q6H PRN PO 03/22/18 23:00 04/21/18 22:59 03/23/18 00:00 600 MG Ceftriaxone Sodium 1000 mg/ Dextrose 60 ml @ 100 mls/hr DAILY IV 03/23/18 09:00 03/25/18 08:59 03/23/18 09:16 100 MLS/HR Doxycycline Hyclate (Vibramycin Cap) 100 mg BID PO 03/23/18 21:00 03/25/18 20:59 Ioversol (Optiray 320) 100 ml UD PRN IV 03/23/18 10:45 03/27/18 10:44 Tramadol HCl (Ultram Tab) 100 mg Q4H PRN PO 03/23/18 12:30 04/21/18 17:29 Objective Vital Signs Date Time Temp Pulse Resp B/P (MAP) Pulse Ox O2 Delivery O2 Flow Rate FiO2 03/23/18 12:13 36.5 78 18 108/70 (83) 92 Room Air 03/23/18 08:30 Room Air Oxymask 03/23/18 07:55 36.6 78 18 105/65 (78) 91 Room Air 03/23/18 03:38 36.5 89 16 116/78 (91) 97 Room Air 03/22/18 23:59 Oxymask 6.0 03/22/18 23:56 38.0 112 18 152/82 (105) 95 Oxymask 6.0 03/22/18 22:44 37.9 107 20 150/84 (106) 95 Oxymask 6.0 03/22/18 22:12 39.4 120 26 146/71 (96) 86 Room Air 03/22/18 21:53 39.4 118 20 93 03/22/18 21:07 39.4 118 18 157/91 (113) 93 Room Air 03/22/18 20:06 39.4 03/22/18 18:00 Room Air 03/22/18 15:46 36.4 88 20 113/72 (86) 95 Room Air Physical Exam General Appearance: WD/WN, no apparent distress Eyes: normal inspection, EOMI, sclerae normal ENT: normal ENT inspection, hearing grossly normal, pharynx normal Neck: supple, no adenopathy, no JVD, trachea midline Respiratory/Chest: chest non-tender, lungs clear, normal breath sounds, no respiratory distress, no accessory muscle use, + pertinent finding (left upper chest wall edema, mild pain on palpation, no erythema or induration noted) Cardiovascular: regular rate, rhythm, no edema, no gallop, no JVD, no murmur Abdomen: normal bowel sounds, non tender, soft, no organomegaly Extremities: normal range of motion, non-tender, normal inspection, no pedal edema, no calf tenderness, normal capillary refill, pelvis stable Neurologic/Psychiatric: 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, no motor/sensory deficits, alert, normal mood/affect, oriented x 3 Skin: normal color, warm/dry, no rash Lymphatic: no adenopathy Laboratory Results Last 24 Hours Test 03/23/18 00:16 03/23/18 07:18 03/23/18 08:55 03/23/18 11:36 Ferritin 59.4 ng/ml Hepatitis B Surface Antigen NEG Hepatitis C Antibody NEG White Blood Count 4.65 K/uL Red Blood Count 4.18 M/uL Hemoglobin 11.5 g/dL Hematocrit 35.7 % Mean Corpuscular Volume 85.4 fL Mean Corpuscular Hemoglobin 27.5 pg Mean Corpuscular Hemoglobin Concent 32.2 g/dl Platelet Count 197 K/uL Mean Platelet Volume 9.8 fL Neutrophils (%) (Auto) 85.2 % Lymphocytes (%) (Auto) 11.2 % Monocytes (%) (Auto) 2.8 % Eosinophils (%) (Auto) 0.0 % Basophils (%) (Auto) 0.4 % Neutrophils # (Auto) 3.96 K/uL Lymphocytes # (Auto) 0.52 K/uL Monocytes # (Auto) 0.13 K/uL Eosinophils # (Auto) 0.00 K/uL Basophils # (Auto) 0.02 K/uL RDW Standard Deviation 43.2 fL RDW Coefficient of Variation 13.9 % Immature Granulocyte % (Auto) 0.4 % Immature Granulocyte # (Auto) 0.02 K/uL Sodium Level 138 mmol/L Potassium Level 3.9 mmol/L Chloride Level 105 mmol/L Carbon Dioxide Level 26 mmol/L Anion Gap 8.0 mmol/L Blood Urea Nitrogen 9 mg/dl Creatinine 0.77 mg/dl Est Creatinine Clear Calc Drug Dose 63.3 ml/min Estimated GFR () 92.0 Estimated GFR (Non- 79.3 BUN/Creatinine Ratio 11.6 Random Glucose 149 mg/dl Calcium Level 8.5 mg/dl Total Bilirubin 0.6 mg/dl Aspartate Amino Transf (AST/SGOT) 152 U/L Alanine Aminotransferase (ALT/SGPT) 227 U/L Alkaline Phosphatase 321 U/L Total Protein 6.9 gm/dl Albumin 3.1 gm/dl Globulin 3.8 gm/dl Albumin/Globulin Ratio 0.8 Erythrocyte Sedimentation Rate 36 mm/hr C-Reactive Protein 9.82 mg/dl Lyme Disease IgG Antibody NEG Lyme Disease IgM Antibody EQUIVOCAL Assessment and Plan Myalgias, fever, chills, nausea in a 68 yo female who was recently admitted to [facility] for sepsis of unknown origin - Fever, night sweats, weight loss, muscle aches for one month duration no adenopathy seen on CT abdomen/pelvis or CT chest patient treated with Rocephin and Zithromax on admission, no fever since antibiotics started WBC normal, ESR elevated, CRP elevated Lyme IgG negative, IgM equivocal, western blot sent EBV, CMV, anaplasmosis sent, all are send out labs blood cultures negative thus far do not feel the left upper chest area is infected, no erythema, minimal pain could be edema working diagnosis is tick borne illness since she is in aceves so often treat with Rocephin and Doxycycline, await confirmatory testing if she does not have a fever on abx then that could suggest bacterial source consult ID to evaluate everything tomorrow Transaminitis AST and ALT down slightly, Alk phos up slightly to 321, bilirubin normal could be due to virus or tick borne illness? Hep A pending, EBV, CMV, anaplasmosis, Lyme all pending no pain in RUQ CT abdomen/pelvis without any liver pathology HTN -will continue current meds. Hx Crohns disease - Stable - Pt follows with Dr. Luis as an outpatient. GERD Continue home med Vit D deficiency Hypothyroidism - Continue levothyroxine DVT ppx: teds, scds, lovenox CODE STATUS: Full Code 50 minutes spent on patient today, reviewing records, taking detailed history, talking with , talking with radiologists
[2018-03-23 16:21] VITALS: BP 132/75; PULSE 84; TEMP 36.6; O2SAT 93
--- NOTE | 2018-03-23 18:18 | Medical Consult ---
Consultation Date of Consultation: Mar 23, 2018. Attending Physician: Trev Salas D.O. Reason for Consultation: Fever of unknown origin History of Present Illness 68-year-old female with history of Crohn's disease in remission for many years, who was in usual state of health until 1 month ago when she had onset of fever, chills, myalgias and arthralgias, and overwhelming fatigue and weakness. She was hospitalized for 4 days at [facility] , and states that she had a negative workup with negative blood cultures. Does remember that her liver enzymes were mildly elevated. She was discharged without a diagnosis, and symptoms have intermittently continued with fever, severe myalgias and arthralgias, and fatigue and weakness. Patient has been started on doxycycline and ceftriaxone. She states she is feeling somewhat better. She had CT scan of the chest which showed infiltration of the soft tissues of the left upper chest, and patient reports that she had an IV in her left axilla which probably infiltrated. Past Medical/Surgical History Medical Problems: (1) Fever Status: Acute (2) Precordial chest pain Status: Acute Medical Problems: (1) Abdominal pain (2) Chest pain (3) Crohn's disease (4) Fever of unknown origin (5) Hypertension Family History Noncontributory Social History Smoking Status: Never Smoker Drug Use: none Marital Status: Occupation Status: retired Allergies Coded Allergies: Codeine (Verified Adverse Reaction, Intermediate, AGITATION, HYPERACTIVITY , UNEASINESS, 03/22/18) Droperidol (Verified Adverse Reaction, Intermediate, AGITATION, HYPERACTIVITY, UNEASINESS, 03/22/18) Iodinated Diagnostic Agents (Verified Adverse Reaction, Intermediate, SHORTNESS OF BREATH, 03/23/18) oral CT contrast Ketorolac (Verified Adverse Reaction, Intermediate, AGITATION, HYPERACTIVITY, 03/22/18) Oxycodone (Verified Adverse Reaction, Intermediate, PERCOCET/PERCODAN= AGITATION, UNEASINESS, HYPERACTIVITY, 03/22/18) Prochlorperazine (Verified Adverse Reaction, Intermediate, AGITATION, HYPERACTIVITY, 03/22/18) Propoxyphene (Verified Adverse Reaction, Intermediate, AGITATION, HYPERACTIVITY, 03/22/18) Replaces DARVOCET-N 10 Current Inpatient Medications Current Inpatient Medications Medications (Trade) Dose Ordered Sig/Theresa Route Start Time Stop Time Status Last Admin Dose Admin Heparin Sodium (Porcine) (Heparin Sq 5000 Unit/0.5ml) 5,000 unit Q8 SQ 03/22/18 16:00 04/21/18 15:59 03/22/18 23:53 5,000 UNIT Aripiprazole (Abilify Tab) 2.5 mg QAM PO 03/23/18 08:00 04/22/18 08:59 03/23/18 08:22 2.5 MG Duloxetine HCl (Cymbalta Cap) 60 mg QAM PO 03/23/18 08:00 04/22/18 08:59 03/23/18 08:23 60 MG Levothyroxine Sodium (Synthroid Tab) 100 mcg DAILYBB PO 03/23/18 06:00 04/22/18 06:59 03/23/18 06:32 100 MCG Losartan Potassium (coZAAR TAB) 100 mg QAM PO 03/23/18 08:00 04/22/18 08:59 03/23/18 08:22 100 MG Pantoprazole Sodium (Protonix Tab) 40 mg QAM PRN PO 03/22/18 13:45 04/21/18 13:44 Trazodone HCl (Desyrel Tab) 50 mg HS PRN PO 03/22/18 13:45 04/21/18 13:44 Miscellaneous (Iv Fluids Completed) 1 ea PRN PRN N/A 03/22/18 14:30 03/22/19 14:29 Ondansetron HCl (Zofran Inj) 4 mg Q6H PRN IV. 03/22/18 20:15 04/21/18 20:14 03/22/18 22:23 4 MG Ioversol (Optiray 320) 111 ml UD PRN IV 03/22/18 21:30 03/26/18 21:29 Ibuprofen (Motrin Tab) 600 mg Q6H PRN PO 03/22/18 23:00 04/21/18 22:59 03/23/18 00:00 600 MG Ceftriaxone Sodium 1000 mg/ Dextrose 60 ml @ 100 mls/hr DAILY IV 03/23/18 09:00 03/25/18 08:59 03/23/18 09:16 100 MLS/HR Doxycycline Hyclate (Vibramycin Cap) 100 mg BID PO 03/23/18 21:00 03/25/18 20:59 Ioversol (Optiray 320) 100 ml UD PRN IV 03/23/18 10:45 03/27/18 10:44 Tramadol HCl (Ultram Tab) 100 mg Q4H PRN PO 03/23/18 12:30 04/21/18 17:29 Review of Systems All systems were reviewed and are negative except as per HPI Physical Exam Date Time Temp Pulse Resp B/P (MAP) Pulse Ox O2 Delivery O2 Flow Rate FiO2 03/23/18 16:21 36.6 84 19 132/75 (94) 93 Room Air 03/23/18 16:00 Room Air Oxymask 03/23/18 12:13 36.5 78 18 108/70 (83) 92 Room Air 03/23/18 08:30 Room Air Oxymask 03/23/18 07:55 36.6 78 18 105/65 (78) 91 Room Air 03/23/18 03:38 36.5 89 16 116/78 (91) 97 Room Air 03/22/18 23:59 Oxymask 6.0 03/22/18 23:56 38.0 112 18 152/82 (105) 95 Oxymask 6.0 03/22/18 22:44 37.9 107 20 150/84 (106) 95 Oxymask 6.0 03/22/18 22:12 39.4 120 26 146/71 (96) 86 Room Air 03/22/18 21:53 39.4 118 20 93 03/22/18 21:07 39.4 118 18 157/91 (113) 93 Room Air 03/22/18 20:06 39.4 General Appearance: WD/WN, no apparent distress Head: normocephalic, atraumatic Eyes: normal inspection, EOMI, sclerae normal ENT: normal ENT inspection, hearing grossly normal, pharynx normal Neck: supple, no adenopathy, thyroid normal, trachea midline Respiratory/Chest: lungs clear, normal breath sounds, no respiratory distress, no accessory muscle use, + pertinent finding (Swelling of left chest wall into axilla and outer quadrant of breast, slightly tender, no erythema) Cardiovascular: regular rate, rhythm, no gallop, no murmur Abdomen/GI: normal bowel sounds, non tender, soft, no organomegaly Back: normal inspection, no CVA tenderness Extremities/Musculoskelatal: no calf tenderness, normal capillary refill, non- tender Neurologic/Psych: alert, normal mood/affect, oriented x 3 Skin: normal color, warm/dry, no rash Lymphatic: no adenopathy Laboratory Results Last 24 Hours Test 03/23/18 00:16 03/23/18 07:18 03/23/18 08:55 03/23/18 11:36 Ferritin 59.4 ng/ml Hepatitis B Surface Antigen NEG Hepatitis C Antibody NEG White Blood Count 4.65 K/uL Red Blood Count 4.18 M/uL Hemoglobin 11.5 g/dL Hematocrit 35.7 % Mean Corpuscular Volume 85.4 fL Mean Corpuscular Hemoglobin 27.5 pg Mean Corpuscular Hemoglobin Concent 32.2 g/dl Platelet Count 197 K/uL Mean Platelet Volume 9.8 fL Neutrophils (%) (Auto) 85.2 % Lymphocytes (%) (Auto) 11.2 % Monocytes (%) (Auto) 2.8 % Eosinophils (%) (Auto) 0.0 % Basophils (%) (Auto) 0.4 % Neutrophils # (Auto) 3.96 K/uL Lymphocytes # (Auto) 0.52 K/uL Monocytes # (Auto) 0.13 K/uL Eosinophils # (Auto) 0.00 K/uL Basophils # (Auto) 0.02 K/uL RDW Standard Deviation 43.2 fL RDW Coefficient of Variation 13.9 % Immature Granulocyte % (Auto) 0.4 % Immature Granulocyte # (Auto) 0.02 K/uL Sodium Level 138 mmol/L Potassium Level 3.9 mmol/L Chloride Level 105 mmol/L Carbon Dioxide Level 26 mmol/L Anion Gap 8.0 mmol/L Blood Urea Nitrogen 9 mg/dl Creatinine 0.77 mg/dl Est Creatinine Clear Calc Drug Dose 63.3 ml/min Estimated GFR () 92.0 Estimated GFR (Non- 79.3 BUN/Creatinine Ratio 11.6 Random Glucose 149 mg/dl Calcium Level 8.5 mg/dl Total Bilirubin 0.6 mg/dl Aspartate Amino Transf (AST/SGOT) 152 U/L Alanine Aminotransferase (ALT/SGPT) 227 U/L Alkaline Phosphatase 321 U/L Total Protein 6.9 gm/dl Albumin 3.1 gm/dl Globulin 3.8 gm/dl Albumin/Globulin Ratio 0.8 Erythrocyte Sedimentation Rate 36 mm/hr C-Reactive Protein 9.82 mg/dl Lyme Disease IgG Antibody NEG Lyme Disease IgM Antibody EQUIVOCAL Patient Name: ANNETTE ROSALES Unit Number: [id number] Dictated: 03/23/181133 Transcribed: 03/23/181133 MS Printed Date/Time: [~ rep prt dt]/[~ rep prt tm] [~ rep ct labl] - [~ rep ct ivnm] [facility] [place] [address] Dictated: 03/23/181133 Transcribed: 03/23/181133 MS Printed Date/Time: [~ rep prt dt]/[~ rep prt tm] [~ rep ct labl] - [~ rep ct ivnm] (CHEST) THORAX WITHOUT CT DOSE: 186.14 mGy.cm HISTORY: Fever, night sweats, weight loss, 1 month TECHNIQUE: Multiaxial CT images of the chest were performed without contrast. A dose lowering technique was utilized adhering to the principles of ALARA. COMPARISON: None. FINDINGS: Findings of a diffuse soft tissue edematous as well as infiltrative change superior aspect left chest wall to include components of the superior margin of the left breast. This extends a radiographic area of approximately 13 x 5 cm. Although a linear fluid component is present, the bulk of this appears to been a nondrainable collection and/or cellulitis. No associated skin thickening and/or minimal skin thickening. It extends superiorly to the left supraclavicular region. There is radiopaque density medially superior to the left mid clavicle measuring 11 mm. This is of uncertain significance. IMPRESSION: 1. Diffuse cellulitis and/or infiltrative process involving the left superior chest wall and left supraclavicular region. 2. This extends over region of approximately 13 x 5 x 7 cm 3. Although there is a small fluid component, the appearance overall suggests a nonspecific cellulitis. An infiltrative neoplastic process and/or inflammatory neoplastic process is not excluded. 4. 11 Millimeters soft tissue radiopaque density medially superior to the midshaft left clavicle of uncertain significance. I Cannot exclude the possibility of a foreign body 5. Several old left rib fractures as well as an old fracture midshaft left clavicle. 6. No evidence for drainable abscess or collection. The above report was generated using voice recognition software. It may contain grammatical, syntax or spelling errors. Electronically signed by: Levi Marshall M.D. 03/23/2018 11:41 AM Dictated Date/Time: 03/23/2018 11:34 AM The status of this report is Signed. Draft = Not yet reviewed or approved by Radiologist. Signed = Reviewed and approved by Radiologist. <AttendingPhy>Trev Salas D.O.</AttendingPhy> <FamilyPhy>Polo Meraz M.D. </FamilyPhy> <PrimaryPhy>Polo Meraz M.D.</PrimaryPhy> <UnitNumber>[id number]</ UnitNumber> <VisitNumber>[id number]</VisitNumber> <PatientName>ANNETTE ROSALES</ PatientName> <DateOfBirth>1950</DateOfBirth> <Location>[facility]</Location> < ServiceDate>03/22/18</ServiceDate> <MNE>ESINDI</MNE> <OrderingPhy>Trev Salas D.O.</OrderingPhy> <OrderingPhyMNE>f rep ord dr wyatt</OrderingPhyMNE> < DictatingPhyMNE>f rep dict dr wyatt</DictatingPhyMNE> <CCListMNE>f rep ct mnallison</ CCListMNE> <AdmittingPhyMNE>f pt admit dr wyatt</AdmittingPhyMNE> <AttendingPhyMNE >f pt attend dr wyatt</AttendingPhyMNE> <ConsultingPhyMNE>f pt consult dr wyatt</ConsultingPhyMNE> <FamilyPhyMNE>f pt fam dr wyatt</FamilyPhyMNE> <OtherPhyMNE>f pt other dr wyatt</OtherPhyMNE> < PrimaryPhyMNE>f pt prim care dr wyatt</PrimaryPhyMNE> <ReferringPhyMNE>f pt referring dr wyatt</ReferringPhyMNE> Assessment & Plan 68-year-old female with several weeks of febrile illness, negative 4 day workup recently in hospital with negative blood cultures, now showing some improvement after starting doxycycline. Given elevation of liver enzymes, certainly anaplasmosis in the differential diagnosis as is acute Lyme disease. Pending blood culture results, would continue patient on doxycycline. Findings on CT scan of the chest likely due to infiltration of left axillary IV. Will follow.
[2018-03-23 19:58] VITALS: BP 129/74; PULSE 91; TEMP 36.6; O2SAT 96
[2018-03-23] MEDS: DOXYCYCLINE HYCLATE 100 MG CAP PO SCH (20:25)
[2018-03-23 23:45] VITALS: BP 137/78; PULSE 82; TEMP 36.8; O2SAT 92
[2018-03-23] MEDS: TRAZODONE HCL 50 MG TAB PO PRN (23:56)
[2018-03-24] VITALS (8 sets, daily range): BP systolic 113–126; BP diastolic 69–82; PULSE 69–80; TEMP 36.4–36.7; O2SAT 93–99
[2018-03-24] MEDS: HEPARIN SOD 5000 UNIT/0.5 ML CARP SQ SCH ×3 (05:44→20:55)
[2018-03-24 05:53] LABS: HEPATITIS A IGM TC 51813E NON-REACTIVE (NON-REACTIVE); HEPATITIS B CORE IGM TC51854R NON-REACTIVE (NON-REACTIVE)
[2018-03-24] MEDS: LEVOTHYROXINE 100 MCG TAB PO SCH (06:21)
[2018-03-24] MEDS: CEFTRIAXONE SOD INJ 1,000 MG in DEXTROSE 5% 50ML 50 ML IV SCH (08:34)
[2018-03-24] MEDS: LOSARTAN POTASSIUM 50 MG TAB PO SCH (08:34)
[2018-03-24] MEDS: DOXYCYCLINE HYCLATE 100 MG CAP PO SCH ×2 (08:34→20:52)
[2018-03-24 08:35] LABS: BASO % 0.6 %; BASO ABS # 0.05 K/uL (0-0.2); EOS ABS # 0.16 K/uL (0-0.5); HEMOGLOBIN 10.5 g/dL (12.0-16.0); IG# 0.02 K/uL (0.00-0.02); LYMPH % 21.2 %; LYMPH ABS # 1.67 K/uL (1.2-3.4); MEAN CELL VOLUME 86.6 fL (80-100); MEAN CORPUSCULAR HEMOGLOBIN 27.6 pg (25-34); MEAN CORPUSCULAR HGB CONC 31.8 g/dl (32-36); MEAN PLATELET VOLUME 10.2 fL (7.4-10.4); MONO % 12.2 %; MONO ABS # 0.96 K/uL (0.11-0.59); NEUT % 63.7 %; NEUT ABS # 5.01 K/uL (1.4-6.5); PLATELET COUNT 231 K/uL (130-400); RED CELL DISTRIBUTION WIDTH CV 14.1 % (11.5-14.5); RED CELL DISTRIBUTION WIDTH SD 44.7 fL (36.4-46.3); WHITE BLOOD COUNT 7.87 K/uL (4.8-10.8)
[2018-03-24] MEDS: ARIPIprazole TAB 5 MG TAB PO SCH (08:35)
[2018-03-24] MEDS: DULOXETINE HCL 60 MG CAP PO SCH (08:35)
[2018-03-24 08:46] LABS: ALBUMIN 2.8 gm/dl (3.4-5.0); CALCIUM 8.6 mg/dl (8.5-10.1); CREATININE 0.73 mg/dl (0.60-1.20); POTASSIUM 3.8 mmol/L (3.5-5.1); TOTAL PROTEIN 6.1 gm/dl (6.4-8.2)
[2018-03-24] MEDS: LACTOBACILLUS ACIDOPHILUS (FLORANEX) TAB PO SCH ×3 (10:27→16:55)
--- NOTE | 2018-03-24 10:44 | Progress Note ---
Subjective Date of Service: Mar 24, 2018. Subjective Pt evaluation today including: conversation w/ patient, physical exam, lab review, review of inpatient medication list Pain: no pain PO Intake: adequate Voiding: no voiding problems no fever, no chills, no muscle aches or joint pain since starting Doxycycline reviewed labs, WBC normal, AST, ALT and Alk phos all trending down, bili normal , Cr normal no send out labs back yet edema nearly resolved in left upper chest after changing IV site discussed going to the medical floor today, she agreed Problem List Medical Problems: (1) Fever Status: Acute (2) Precordial chest pain Status: Acute Review of Systems All Other Systems: Reviewed and Negative Medications Current Inpatient Medications Medications (Trade) Dose Ordered Sig/Theresa Route Start Time Stop Time Status Last Admin Dose Admin Heparin Sodium (Porcine) (Heparin Sq 5000 Unit/0.5ml) 5,000 unit Q8 SQ 03/22/18 16:00 04/21/18 15:59 03/22/18 23:53 5,000 UNIT Aripiprazole (Abilify Tab) 2.5 mg QAM PO 03/23/18 08:00 04/22/18 08:59 03/24/18 08:35 2.5 MG Duloxetine HCl (Cymbalta Cap) 60 mg QAM PO 03/23/18 08:00 04/22/18 08:59 03/24/18 08:35 60 MG Levothyroxine Sodium (Synthroid Tab) 100 mcg DAILYBB PO 03/23/18 06:00 04/22/18 06:59 03/24/18 06:21 100 MCG Losartan Potassium (coZAAR TAB) 100 mg QAM PO 03/23/18 08:00 04/22/18 08:59 03/24/18 08:34 100 MG Pantoprazole Sodium (Protonix Tab) 40 mg QAM PRN PO 03/22/18 13:45 04/21/18 13:44 Trazodone HCl (Desyrel Tab) 50 mg HS PRN PO 03/22/18 13:45 04/21/18 13:44 03/23/18 23:56 50 MG Miscellaneous (Iv Fluids Completed) 1 ea PRN PRN N/A 03/22/18 14:30 03/22/19 14:29 Ondansetron HCl (Zofran Inj) 4 mg Q6H PRN IV. 03/22/18 20:15 04/21/18 20:14 03/22/18 22:23 4 MG Ioversol (Optiray 320) 111 ml UD PRN IV 03/22/18 21:30 03/26/18 21:29 Ibuprofen (Motrin Tab) 600 mg Q6H PRN PO 03/22/18 23:00 04/21/18 22:59 03/23/18 00:00 600 MG Ceftriaxone Sodium 1000 mg/ Dextrose 60 ml @ 100 mls/hr DAILY IV 03/23/18 09:00 03/25/18 08:59 03/24/18 08:34 100 MLS/HR Doxycycline Hyclate (Vibramycin Cap) 100 mg BID PO 03/23/18 21:00 03/25/18 20:59 03/24/18 08:34 100 MG Ioversol (Optiray 320) 100 ml UD PRN IV 03/23/18 10:45 03/27/18 10:44 Tramadol HCl (Ultram Tab) 100 mg Q4H PRN PO 03/23/18 12:30 04/21/18 17:29 03/23/18 20:25 100 MG Lactobacillus Acidophilus (Floranex Tab) 4 tab TIDM PO 03/24/18 11:30 04/23/18 11:29 03/24/18 10:27 4 TAB Objective Vital Signs Date Time Temp Pulse Resp B/P (MAP) Pulse Ox O2 Delivery O2 Flow Rate FiO2 03/24/18 10:23 36.5 78 18 96 03/24/18 08:45 Room Air 03/24/18 07:10 36.5 78 18 126/82 (97) 96 03/24/18 03:35 36.4 72 18 113/70 (84) 99 Room Air 03/24/18 00:01 Room Air 03/23/18 23:45 36.8 82 18 137/78 (97) 92 Room Air 03/23/18 19:58 36.6 91 18 129/74 (92) 96 Room Air 03/23/18 16:21 36.6 84 19 132/75 (94) 93 Room Air 03/23/18 16:00 Room Air Oxymask 03/23/18 12:13 36.5 78 18 108/70 (83) 92 Room Air Physical Exam General Appearance: WD/WN, no apparent distress Eyes: normal inspection, EOMI, sclerae normal ENT: normal ENT inspection, hearing grossly normal, pharynx normal Neck: supple, no adenopathy, no JVD, trachea midline Respiratory/Chest: chest non-tender, lungs clear, normal breath sounds, no respiratory distress, no accessory muscle use Cardiovascular: regular rate, rhythm, no edema, no gallop, no JVD, no murmur Abdomen: normal bowel sounds, non tender, soft, no organomegaly, no pulsatile mass Extremities: normal range of motion, non-tender, normal inspection, no pedal edema, no calf tenderness 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, no motor/sensory deficits, alert, normal mood/affect, oriented x 3 Skin: normal color, warm/dry, no rash Laboratory Results Last 24 Hours Test 03/23/18 11:36 03/24/18 07:06 White Blood Count 7.87 K/uL Red Blood Count 3.81 M/uL Hemoglobin 10.5 g/dL Hematocrit 33.0 % Mean Corpuscular Volume 86.6 fL Mean Corpuscular Hemoglobin 27.6 pg Mean Corpuscular Hemoglobin Concent 31.8 g/dl Platelet Count 231 K/uL Mean Platelet Volume 10.2 fL Neutrophils (%) (Auto) 63.7 % Lymphocytes (%) (Auto) 21.2 % Monocytes (%) (Auto) 12.2 % Eosinophils (%) (Auto) 2.0 % Basophils (%) (Auto) 0.6 % Neutrophils # (Auto) 5.01 K/uL Lymphocytes # (Auto) 1.67 K/uL Monocytes # (Auto) 0.96 K/uL Eosinophils # (Auto) 0.16 K/uL Basophils # (Auto) 0.05 K/uL RDW Standard Deviation 44.7 fL RDW Coefficient of Variation 14.1 % Immature Granulocyte % (Auto) 0.3 % Immature Granulocyte # (Auto) 0.02 K/uL Sodium Level 143 mmol/L Potassium Level 3.8 mmol/L Chloride Level 110 mmol/L Carbon Dioxide Level 30 mmol/L Anion Gap 3.0 mmol/L Blood Urea Nitrogen 12 mg/dl Creatinine 0.73 mg/dl Est Creatinine Clear Calc Drug Dose 66.5 ml/min Estimated GFR () 98.1 Estimated GFR (Non- 84.6 BUN/Creatinine Ratio 15.9 Random Glucose 89 mg/dl Calcium Level 8.6 mg/dl Total Bilirubin 0.2 mg/dl Aspartate Amino Transf (AST/SGOT) 49 U/L Alanine Aminotransferase (ALT/SGPT) 138 U/L Alkaline Phosphatase 225 U/L Total Protein 6.1 gm/dl Albumin 2.8 gm/dl Globulin 3.3 gm/dl Albumin/Globulin Ratio 0.8 Assessment and Plan Myalgias, fever, chills, nausea in a 68 yo female who was recently admitted to [facility] for sepsis of unknown origin - Fever, night sweats, weight loss, muscle aches for one month duration no adenopathy seen on CT abdomen/pelvis or CT chest patient treated with Rocephin and Zithromax on admission, no fever since antibiotics started WBC normal, ESR elevated, CRP elevated on 03/22 Lyme IgG negative, IgM equivocal, western blot sent EBV, CMV, anaplasmosis sent, all are send out labs, still pending blood cultures negative thus far do not feel the left upper chest area is infected, no erythema, minimal pain could be edema working diagnosis is tick borne illness since she is in aceves so often no fever for 36 hours, continue Doxycycline transfer to medical floor if no fevers through tomorrow morning, will d/c on Doxycycline and can follow up with PCP for lab results Transaminitis AST and ALT and alkaline phosphatase all trending down, bili normal again could be due to virus or tick borne illness? Hep A pending, EBV, CMV, anaplasmosis, Lyme all pending no pain in RUQ CT abdomen/pelvis without any liver pathology Diarrhea: tested positive for C diff will start Vanco 125mg PO q6 Questran BID HTN -will continue current meds, BP stable Hx Crohns disease - Stable - Pt follows with Dr. Luis as an outpatient. GERD Continue home med Vit D deficiency Hypothyroidism - Continue levothyroxine DVT ppx: teds, scds, lovenox CODE STATUS: Full Code transfer to medical floor, likely for d/c tomorrow on Doxycycline
[2018-03-24] MEDS ORDERED: NURSING VERBAL MED ORDER ONE (18:00)
[2018-03-24] MEDS: ALPRAZOLAM 0.5 MG TAB PO PRN (18:22)
[2018-03-24] MEDS: RASPBERRY SYRUP 5 ML UDP PO SCH ×2 (18:23→23:46)
[2018-03-24] MEDS: VANCOMYCIN HCL 125 MG/2.5ML SOLN PO SCH ×2 (18:23→23:46)
[2018-03-24] MEDS: TRAZODONE HCL 50 MG TAB PO PRN (20:53)
[2018-03-24] MEDS: CHOLESTYRAMINE LIGHT 4 GM PKT PO SCH (20:55)
--- NOTE | 2018-03-24 21:33 | Infectious Disease Progress Nt ---
Progress Note Date of Service Mar 24, 2018. Subjective Pt evaluation today including: conversation w/ patient, physical exam, chart review, lab review, review of studies, conversation w/ ada accommodation consultant, review of inpatient medication list Patient having some diarrhea, positive stool C diff PCR. Otherwise feeling better, remains afebrile on doxycycline. Offers no other new complaints. All Other Systems: Reviewed and Negative Medications Current Inpatient Medications Medications (Trade) Dose Ordered Sig/Theresa Route Start Time Stop Time Status Last Admin Dose Admin Heparin Sodium (Porcine) (Heparin Sq 5000 Unit/0.5ml) 5,000 unit Q8 SQ 03/22/18 16:00 04/21/18 15:59 03/22/18 23:53 5,000 UNIT Aripiprazole (Abilify Tab) 2.5 mg QAM PO 03/23/18 08:00 04/22/18 08:59 03/24/18 08:35 2.5 MG Duloxetine HCl (Cymbalta Cap) 60 mg QAM PO 03/23/18 08:00 04/22/18 08:59 03/24/18 08:35 60 MG Levothyroxine Sodium (Synthroid Tab) 100 mcg DAILYBB PO 03/23/18 06:00 04/22/18 06:59 03/24/18 06:21 100 MCG Losartan Potassium (coZAAR TAB) 100 mg QAM PO 03/23/18 08:00 04/22/18 08:59 03/24/18 08:34 100 MG Pantoprazole Sodium (Protonix Tab) 40 mg QAM PRN PO 03/22/18 13:45 04/21/18 13:44 Trazodone HCl (Desyrel Tab) 50 mg HS PRN PO 03/22/18 13:45 04/21/18 13:44 03/24/18 20:53 50 MG Miscellaneous (Iv Fluids Completed) 1 ea PRN PRN N/A 03/22/18 14:30 03/22/19 14:29 Ondansetron HCl (Zofran Inj) 4 mg Q6H PRN IV. 03/22/18 20:15 04/21/18 20:14 03/22/18 22:23 4 MG Ioversol (Optiray 320) 111 ml UD PRN IV 03/22/18 21:30 03/26/18 21:29 Ibuprofen (Motrin Tab) 600 mg Q6H PRN PO 03/22/18 23:00 04/21/18 22:59 03/23/18 00:00 600 MG Ceftriaxone Sodium 1000 mg/ Dextrose 60 ml @ 100 mls/hr DAILY IV 03/23/18 09:00 03/25/18 08:59 03/24/18 08:34 100 MLS/HR Doxycycline Hyclate (Vibramycin Cap) 100 mg BID PO 03/23/18 21:00 03/25/18 20:59 03/24/18 20:52 100 MG Ioversol (Optiray 320) 100 ml UD PRN IV 03/23/18 10:45 03/27/18 10:44 Tramadol HCl (Ultram Tab) 100 mg Q4H PRN PO 03/23/18 12:30 04/21/18 17:29 03/23/18 20:25 100 MG Lactobacillus Acidophilus (Floranex Tab) 4 tab TIDM PO 03/24/18 11:30 04/23/18 11:29 03/24/18 16:55 4 TAB Vancomycin HCl (Vancomycin Oral Soln) 125 mg Q6 PO 03/24/18 18:00 04/03/18 17:59 03/24/18 18:23 125 MG Cholestyramine Resin (Questran Powder Light) 4 gm BID@10,22 PO 03/24/18 22:00 04/23/18 21:59 03/24/18 20:55 4 GM Raspberry (Raspberry Syrup 5ml Cup) 5 ml Q6 PO 03/24/18 18:00 04/07/18 17:59 03/24/18 18:23 5 ML Alprazolam (Xanax Tab) 0.5 mg Q8H PRN PO 03/24/18 18:15 04/23/18 18:14 03/24/18 18:22 0.5 MG Objective Vital Signs Date Time Temp Pulse Resp B/P (MAP) Pulse Ox O2 Delivery O2 Flow Rate FiO2 03/24/18 16:00 96 Room Air 03/24/18 15:50 36.7 80 18 123/78 (93) 96 Room Air 03/24/18 11:30 36.5 69 16 116/69 (85) 93 Room Air 03/24/18 10:40 96 Room Air 03/24/18 10:23 36.5 78 18 96 03/24/18 08:45 Room Air 03/24/18 07:10 36.5 78 18 126/82 (97) 96 03/24/18 03:35 36.4 72 18 113/70 (84) 99 Room Air 03/24/18 00:01 Room Air 03/23/18 23:45 36.8 82 18 137/78 (97) 92 Room Air Physical Exam General Appearance: WD/WN, no apparent distress Eyes: normal inspection, EOMI, sclerae normal ENT: normal ENT inspection, pharynx normal Neck: supple, no adenopathy, thyroid normal, trachea midline Respiratory/Chest: chest non-tender, lungs clear, normal breath sounds, no respiratory distress Cardiovascular: regular rate, rhythm, no gallop, no murmur Abdomen: normal bowel sounds, non tender, soft, no organomegaly Extremities: non-tender, no calf tenderness, normal capillary refill Neurologic/Psychiatric: no motor/sensory deficits, alert, oriented x 3 Skin: normal color, warm/dry, no rash Lymphatic: no adenopathy Laboratory Results RUN DATE: 03/24/18 [facility] PAGE 1 RUN TIME: 1544 Specimen Inquiry PATIENT: ANNETTE ROSALES LOC: [facility] # : [id number] AGE/SX: 68/F ROOM: N285 REG : 03/22/[address]: Trev Salas, D.O. : 1950 BED: 1 DIS : STATUS: ADM IN TLOC: SPEC #: [id number] MARIA C: 03/24/18 STATUS: MICHAEL REDyana #: [id number] RECD: 03/24/[address] [facility] [address]: Trev Salas D.O. SOURCE: STOOL ENTR: 03/24/[address] [facility] [address]: Polo Meraz M.D. [facility]: Jennifer. Murry D.O. Saborio, George A. M.D. ORDERED: CDIFF TOXIN B COMMENTS: Has Specimen Been Obtained/Collected? Y I have reviewed the C. diff order recommendations Y Procedure Result Verified Site CDIFF TOXIN B GENE*(2 YR OR >) Final 03/24/18-1543 Positive for C. difficile toxin B gene RESULTS WERE ALSO CALLED TO [facility] INFECTION CONTROL ANSWERING MACHINE ON 03/24/18 BY PRATIBHA. Last 24 Hours Test 03/24/18 07:06 White Blood Count 7.87 K/uL Red Blood Count 3.81 M/uL Hemoglobin 10.5 g/dL Hematocrit 33.0 % Mean Corpuscular Volume 86.6 fL Mean Corpuscular Hemoglobin 27.6 pg Mean Corpuscular Hemoglobin Concent 31.8 g/dl Platelet Count 231 K/uL Mean Platelet Volume 10.2 fL Neutrophils (%) (Auto) 63.7 % Lymphocytes (%) (Auto) 21.2 % Monocytes (%) (Auto) 12.2 % Eosinophils (%) (Auto) 2.0 % Basophils (%) (Auto) 0.6 % Neutrophils # (Auto) 5.01 K/uL Lymphocytes # (Auto) 1.67 K/uL Monocytes # (Auto) 0.96 K/uL Eosinophils # (Auto) 0.16 K/uL Basophils # (Auto) 0.05 K/uL RDW Standard Deviation 44.7 fL RDW Coefficient of Variation 14.1 % Immature Granulocyte % (Auto) 0.3 % Immature Granulocyte # (Auto) 0.02 K/uL Sodium Level 143 mmol/L Potassium Level 3.8 mmol/L Chloride Level 110 mmol/L Carbon Dioxide Level 30 mmol/L Anion Gap 3.0 mmol/L Blood Urea Nitrogen 12 mg/dl Creatinine 0.73 mg/dl Est Creatinine Clear Calc Drug Dose 66.5 ml/min Estimated GFR () 98.1 Estimated GFR (Non- 84.6 BUN/Creatinine Ratio 15.9 Random Glucose 89 mg/dl Calcium Level 8.6 mg/dl Total Bilirubin 0.2 mg/dl Aspartate Amino Transf (AST/SGOT) 49 U/L Alanine Aminotransferase (ALT/SGPT) 138 U/L Alkaline Phosphatase 225 U/L Total Protein 6.1 gm/dl Albumin 2.8 gm/dl Globulin 3.3 gm/dl Albumin/Globulin Ratio 0.8 Assessment and Plan 68-year-old female with several weeks of febrile illness, negative 4 day workup recently in hospital with negative blood cultures, now showing some improvement after starting doxycycline. Given elevation of liver enzymes, certainly anaplasmosis in the differential diagnosis as is acute Lyme disease. Would continue patient on doxycycline. Findings on CT scan of the chest likely due to infiltration of left axillary IV. Now diarrhea and positive C diff PCR. To treat with vancomycin. Will follow.
[2018-03-25] MEDS: HEPARIN SOD 5000 UNIT/0.5 ML CARP SQ SCH (05:49)
[2018-03-25] MEDS: LEVOTHYROXINE 100 MCG TAB PO SCH (06:18)
[2018-03-25] MEDS: VANCOMYCIN HCL 125 MG/2.5ML SOLN PO SCH ×2 (06:18→11:45)
[2018-03-25] MEDS: RASPBERRY SYRUP 5 ML UDP PO SCH ×2 (06:18→11:45)
[2018-03-25 07:14] VITALS: BP 130/78; PULSE 73; TEMP 36.8; O2SAT 96
[2018-03-25 07:41] LABS: HEMATOCRIT 35.9 % (37-47); HEMOGLOBIN 11.5 g/dL (12.0-16.0); MEAN CELL VOLUME 86.3 fL (80-100); MEAN CORPUSCULAR HEMOGLOBIN 27.6 pg (25-34); MEAN PLATELET VOLUME 9.8 fL (7.4-10.4); PLATELET COUNT 280 K/uL (130-400); RED CELL DISTRIBUTION WIDTH CV 14.2 % (11.5-14.5); RED CELL DISTRIBUTION WIDTH SD 44.8 fL (36.4-46.3); WHITE BLOOD COUNT 7.22 K/uL (4.8-10.8)
[2018-03-25] MEDS: LACTOBACILLUS ACIDOPHILUS (FLORANEX) TAB PO SCH ×2 (07:56→11:44)
[2018-03-25] MEDS: DULOXETINE HCL 60 MG CAP PO SCH (07:57)
[2018-03-25] MEDS: LOSARTAN POTASSIUM 50 MG TAB PO SCH (07:58)
[2018-03-25] MEDS: CHOLESTYRAMINE LIGHT 4 GM PKT PO SCH ×2 (07:58→09:20)
[2018-03-25] MEDS: ARIPIprazole TAB 5 MG TAB PO SCH (07:58)
[2018-03-25] MEDS: DOXYCYCLINE HYCLATE 100 MG CAP PO SCH (07:59)
[2018-03-25] MEDS: ALPRAZOLAM 0.5 MG TAB PO PRN (08:02)
[2018-03-25] MEDS ORDERED: DXY100 PO (10:40)
[2018-03-25] MEDS ORDERED: QSTP PO (10:40)
[2018-03-25] MEDS ORDERED: LCTX PO (10:40)
[2018-03-25] MEDS ORDERED: VANC5CAP PO (10:40)
--- NOTE | 2018-03-25 10:50 | Discharge Instructions ---
Discharge Instructions Date of Service Mar 25, 2018. Admission Reason for Admission: FEVER Discharge Discharge Diagnosis / Problem: Fever, suspected tick borne illness, C diff colitis Discharge Goals Goal(s): Decrease discomfort, Improve function, Specific goals (follow up on Lyme and anaplasmosis testing) Activity Recommendations Activity Limitations: resume your previous activity . Instructions / Follow-Up Instructions / Follow-Up Medications: - DOXYCYCLINE: 100mg twice a day for 24 more doses (12 days), this will cover tick borne illnesses while you await results - VANCOMYCIN: 125mg four times a day for 24 more days, need extended course because you are going to be on Doxycycline for the next 12 days - QUESTRAN: can take twice a day at 10am and/or 10pm if you have issues with diarrhea, can bulk up stools, only use as needed and stop when stools are solid - LACTOBACILLUS: probiotic, take to restore healthy gut bacteria, if you do not want to take probiotics you can eat yogurt every day Fever, suspected tick born illness symptoms of fevers, night sweats, muscle and joint aches, fatigue can all be consistent with Lyme disease, anaplasmosis liver enzymes were mildly elevated which is also a common finding blood counts, specifically platelets, were stable you have not had any fevers since starting Doxycycline and fatigue has improved Lyme IgM was positive, awaiting confirmatory testing anaplasmosis testing was sent out, still pending recommend taking Doxycycline for 12 more days, follow up with Dr. Meraz, he will have results of testing C diff colitis, diarrhea due to recent antibiotics use treatment is Vancomycin 125mg four times a day normally treatment is 14 days but you are going to be on antibiotics for 12 more days so we need to extend the course of Vanco use probiotics and if needed, Questran to treat diarrhea follow up with Dr. Meraz as far as being contagious, the most important thing you and family can do is proper hand washing FOLLOW UP - Dr. Meraz this week, call his office tomorrow and request hospital follow up he will get results of Lyme and anaplasmosis testing Current Hospital Diet Patient's current hospital diet: Regular Diet Discharge Diet Recommended Diet: Regular Diet Pending Studies Studies pending at discharge: yes List of pending studies: Lyme titers, Anaplasmosis, CMV and EBV testing Laboratory Results Lipid Panel Test 02/05/18 09:30 Range/Units Triglycerides Level 156 H 0-150 mg/dl Cholesterol Level 136 0-200 mg/dl HDL Cholesterol 45 mg/dl Cholesterol/HDL Ratio 3.0 LDL Cholesterol, Calculated 60 mg/dl Medical Emergencies . Who to Call and When: Medical Emergencies: If at any time you feel your situation is an emergency, please call 911 immediately. . Non-Emergent Contact Non-Emergency issues call your: Primary Care Provider Call Non-Emergent contact if: you have a fever, your pain is worsening, you have any medication questions . . "Provider Documentation" section prepared by Trev Salas. . [place] Drug Monitoring Program Search Results: no issues identified
[2018-03-25 10:52] VITALS: BP 130/78; PULSE 73; TEMP 36.8; O2SAT 96
[2018-03-25] MEDS ORDERED: METR-163 PO (16:02)
--- NOTE | 2018-03-30 21:02 | Discharge Summary ---
Discharge Summary Date of Service Mar 25, 2018. Discharge Summary Admission Date: Mar 22, 2018 at 21:12 Discharge Date: Mar 25, 2018 Discharge Disposition: Home Principal Diagnosis: Febrile illness, suspected tick borne illness Problems/Secondary Diagnoses: C diff colitis Immunizations: Have You Had Influenza Vaccine: No History of Tetanus Vaccine?: Yes Tetanus Immunization Date: Feb 23, 2011 History of Pneumococcal: No History of Hepatitis B Vaccine: No Procedures: none Consultations: Infectious disease Medication Reconciliation New Medications: Metronidazole (Flagyl) 500 Mg Tab 500 MG PO TID for 24 Days, #72 TAB Vancomycin Hcl (Vancomycin) 125 Mg Cap 125 MG PO QID for 24 Days, #96 CAP 0 Refills Cholestyramine (Cholestyramine Light) 4 Gm Pack 4 GM PO BID@, PRN for Diarrhea MDD 2 doses, #20 PKT 0 Refills Doxycycline Hyclate (Doxycycline Hyclate) 100 Mg Cap 100 MG PO BID for 12 Days, #24 CAP 0 Refills Lactobacillus Acidophilus (Floranex) 1 Tab Tab 4 TAB PO TIDM for 10 Days, #120 TAB 0 Refills Continued Medications: Aripiprazole (Abilify) 5 Mg Tab 2.5 MG PO QAM Duloxetine Hcl (Cymbalta) 60 Mg Cap 60 MG PO QAM Levothyroxine Sodium (Levothyroxine Sodium) 100 Mcg Tab 100 MCG PO QAM Losartan Potassium (Cozaar) 100 Mg Tab 100 MG PO QAM Pantoprazole (Protonix) 40 Mg Tab 40 MG PO QAM PRN for GI Upset Trazodone Hcl (Trazodone) 50 Mg Tab 50 MG PO HS PRN for Sleep Discharge Exam Patient felt well on the day of discharge, no fevers since starting Doxycycline. Diarrhea less frequent, less volume since starting Vancomycin PO. Discharged to home. Next day I received a phone call from patient's stating the Vancomycin PO was too expensive at their pharmacy. Sent a scrip for Flagyl instead. Review of Systems: Constitutional: No fever, No chills, No sweats, No weight loss, No weakness , No fatigue, No problem reported Eyes: No worsening of vision, No eye pain, No redness, No discharge, No diplopia, No problem reported Respiratory: No cough, No sputum, No wheezing, No shortness of breath, No dyspnea on exertion, No dyspnea at rest, No hemoptysis, No problem reported Cardiovascular: No chest pain, No orthopnea, No PND, No edema, No claudication, No palpitations, No problem reported Abdomen: + diarrhea (mild, improved), No pain, No nausea, No vomiting, No constipation, No GI bleeding, No problem reported Musculoskeletal: No joint pain, No muscle pain, No swelling, No calf pain, No problem reported Genitourinary - Female: No dysuria, No urinary frequency, No urinary urgency , No urinary incontinence, No urinary retention, No hematuria Neurologic: No memory loss, No paralysis, No weakness, No numbness/tingling , No vertigo, No balance problems, No problem reported Psychiatric: No depression symptoms, No anhedonism, No anxiety, No insomnia , No substance abuse, No problem reported Endocrine: No fatigue, No excessive thirst, No excessive urination, No problem reported Hematologic / Lymphatic: No abnormal bleeding/bruising, No clotting problems , No swollen lymph nodes, No night sweats, No problem reported Integumentary: No rash, No itch, No new/changing skin lesions, No color change, No bleeding, No problem reported Physical Exam: General Appearance: WD/WN, no apparent distress Eyes: normal inspection, EOMI, sclerae normal ENT: normal ENT inspection, hearing grossly normal, pharynx normal Neck: supple, no adenopathy, no JVD, trachea midline Respiratory/Chest: chest non-tender, lungs clear, normal breath sounds, no respiratory distress, no accessory muscle use Cardiovascular: regular rate, rhythm, no edema, no gallop, no JVD, no murmur , normal peripheral pulses Abdomen / GI: normal bowel sounds, non tender, soft, no organomegaly Extremities: normal inspection, no calf tenderness, normal capillary refill , no pedal edema, normal range of motion, pelvis stable 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, no motor/sensory deficits , alert, normal mood/affect, normal reflexes, oriented x 3 Skin: normal color, warm/dry, no rash Hospital Course Myalgias, fever, chills, nausea in a 68 yo female who was recently admitted to [facility] for sepsis of unknown origin - Fever, night sweats, weight loss, muscle aches for one month duration no adenopathy seen on CT abdomen/pelvis or CT chest patient treated with Rocephin and Zithromax on admission, no fever since antibiotics started WBC normal, ESR elevated, CRP elevated on 03/22 Lyme IgG negative, IgM equivocal, western blot sent - final results negative as well EBV, CMV, anaplasmosis sent, all negative blood cultures negative at 5 days do not feel the left upper chest area is infected, no erythema, minimal pain could be edema working diagnosis is tick borne illness since she is in aceves so often perhaps too early to get accurate IgM levels no fever for 72 hours after starting Doxycycline d/c to home on Doxycycline for 14 days total, follow up with PCP Transaminitis AST and ALT and alkaline phosphatase all trending down for three days straight, bili normal could be due to virus or tick borne illness? Hep A negative, EBV, CMV, anaplasmosis, Lyme all negative no pain in RUQ CT abdomen/pelvis without any liver pathology Diarrhea: tested positive for C diff treated with Vanco 125mg PO q6 Questran BID diarrhea improved unfortunately copay for Vanco PO was $750 sent script for Flagyl 500mg TID for 24 days instead HTN -will continue current meds, BP stable Hx Crohns disease - Stable - Pt follows with Dr. Luis as an outpatient. GERD Continue home med Vit D deficiency Hypothyroidism - Continue levothyroxine DVT ppx: teds, scds, lovenox CODE STATUS: Full Code Total Time Spent: Greater than 30 minutes This includes examination of the patient, discharge planning, medication reconciliation, and communication with other providers. Discharge Instructions Please refer to the electronic Patient Visit Report (Discharge Instructions) for additional information. Follow-Up PCP in one week Additional Copies To Polo Meraz M.D.
== END 2018-03-25 13:31 | disposition home or self-care (01) | DRG 868 ==
LOC: C.EDB 10:03 → C.MS4W 13:44 → ENRESERV 14:42 → CANRESERV 14:42 → OBSVTOIN 21:12 → ENRESERV 21:38 → C.2T 22:33 → ENRESERV 03-24 09:34 → C.MED 03-24 10:42
PROVIDERS: ADMIT Internal Medicine Sports Medicine; ATTEND Internal Medicine
DX: A77.40 Ehrlichiosis, unspecified (principal); K50.90 Crohn's disease, unspecified, without complications; A04.72 Enterocolitis due to Clostridium difficile, not specified as recurrent; I10 Essential (primary) hypertension; Z88.5 Allergy status to narcotic agent; Z88.8 Allergy status to other drugs, medicaments and biological substances; E03.9 Hypothyroidism, unspecified; E55.9 Vitamin D deficiency, unspecified; R74.0 Nonspecific elevation of levels of transaminase and lactic acid dehydrogenase [LDH]

== ENCOUNTER 2023-02-06 09:18 | Observation (INO) ==
--- NOTE | 2022-12-22 12:20 | PAT Medication Instructions ---
Medication Instructions Date of Service December 22, 2022 Home Medications Medication Instructions Recorded acetaminophen 325 mg tablet 650 mg PO Q6H PRN pain #90 tabs 03/16/19 iron, carbonyl 45 mg tablet 45 mg PO BID #180 tabs 11/01/21 (Feosol) ondansetron HCl 8 mg tablet 8 mg PO BID PRN nausea and 08/11/22 vomiting #60 tabs memantine 5 mg tablet 5 mg PO BID #60 tabs 09/30/22 tramadol 50 mg tablet 50 mg PO Q6H PRN pain #120 tabs 12/15/22 prednisone 5 mg tablet 5 mg PO .COMPLEX #12 tabs 12/20/22 Medication List: acetaminophen 325 mg tablet 650 mg PO Q6H PRN pain multivitamin 2 tab PO QPM quetiapine 25 mg tablet 25 mg PO QPM iron, carbonyl 45 mg tablet (Feosol) 45 mg PO BID calcium 500 mg tablet 500 mg PO QPM vitamin E 268 mg (400 unit) capsule 400 unit PO QPM ondansetron HCl 8 mg tablet 8 mg PO BID PRN nausea and vomiting fluoxetine 10 mg capsule (Prozac) 20 mg PO HS memantine 5 mg tablet 5 mg PO BID tramadol 50 mg tablet 50 mg PO Q6H PRN pain amlodipine 10 mg tablet 10 mg PO QPM aripiprazole 2 mg tablet 2 mg PO UD cholecalciferol (vitamin D3) 25 mcg (1,000 unit) capsule (Vitamin D3) 2,000 unit PO QPM levothyroxine 75 mcg tablet 75 mcg PO QAM losartan 100 mg tablet 100 mg PO QPM prednisone 10 mg tablet 5 mg PO UD prednisone 5 mg tablet 5 mg PO .COMPLEX quetiapine 50 mg tablet 50 mg PO QPM rizatriptan 10 mg tablet 10 mg PO UD PRN migraines Continue as directed prednisone 10 mg tablet 5 mg PO UD prednisone 5 mg tablet 5 mg PO .COMPLEX STOP taking 2 weeks before surgery vitamin E 268 mg (400 unit) capsule 400 unit PO QPM DO NOT take the morning of surgery iron, carbonyl 45 mg tablet (Feosol) 45 mg PO BID Take morning of surgery With a small sip of water, OTHERWISE NOTHING TO EAT OR DRINK AFTER MIDNIGHT: acetaminophen 325 mg tablet 650 mg PO Q6H PRN pain (if needed) ondansetron HCl 8 mg tablet 8 mg PO BID PRN nausea and vomiting (if needed) levothyroxine 75 mcg tablet 75 mcg PO QAM tramadol 50 mg tablet 50 mg PO Q6H PRN pain (if needed) memantine 5 mg tablet 5 mg PO BID rizatriptan 10 mg tablet 10 mg PO UD PRN migraines (if needed) Take evening before surgery acetaminophen 325 mg tablet 650 mg PO Q6H PRN pain (if needed) losartan 100 mg tablet 100 mg PO QPM fluoxetine 10 mg capsule (Prozac) 20 mg PO HS multivitamin 2 tab PO QPM ondansetron HCl 8 mg tablet 8 mg PO BID PRN nausea and vomiting (if needed) iron, carbonyl 45 mg tablet (Feosol) 45 mg PO BID amlodipine 10 mg tablet 10 mg PO QPM calcium 500 mg tablet 500 mg PO QPM cholecalciferol (vitamin D3) 25 mcg (1,000 unit) capsule (Vitamin D3) 2,000 unit PO QPM tramadol 50 mg tablet 50 mg PO Q6H PRN pain (if needed) memantine 5 mg tablet 5 mg PO BID rizatriptan 10 mg tablet 10 mg PO UD PRN migraines (if needed) Other Notes CHECK WITH PRESCRIBING PROVIDER: quetiapine 50 mg tablet 50 mg PO QPM quetiapine 25 mg tablet 25 mg PO QPM aripiprazole 2 mg tablet 2 mg PO UD If you have any questions please call us at [phone] or [phone] or [phone] or [phone]
--- NOTE | 2022-12-28 13:45 | Anesthesiology Consultation ---
Date of Service December 28, 2022 Assessment & Plan (1) Encounter for pre-operative examination: Chart Review Chart Review: Acceptable Risk for Surgery (pending endocrinology follow up appt 01/19/23) and Patient seen in Pre Admission Testing - Awaiting endocrinology routine follow up 01/19/23 (pt will discuss upcoming surgery at that time and if steroid needed pre, mykel, and/or post operatively)(did send workload note to plastics technician) - Discussed with Dr. Nguyen- patient is NOT an OPJ candidate due to comorbidities (surgeon's office made aware) Per PAT appt on 12/28/22, patient denies any recent travel or large group ac tivities. Pt is vaccinated for Covid. Will leave to surgeon's discretion if preop Covid testing needed. Educated on importance of using Covid precautions one week prior to surgery Seen by PCP 12/20/22= We will set up with Derm for changing skin lesion. Patient planning for shoulder replacement 01/20/2023. There are no contraindications to proceeding with surgery. Continue with tramadol as needed. Last injection from Dr. Sow did help with pain. Take levothyroxine and amantadine with small sip of water day of surgery. Hold off on other medications. Crohn's disease has been well controlled. Follows with endocrinology regarding questionable adrenal issues. Does have prednisone to use as needed. I do not believe that postop adrenal insufficiency is a significant concern. Certainly, if you are feeling fatigued after surgery let us know. Continue levothyroxine. Following with neuro for mild cognitive changes. 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 Neuro did not feel the patient needs to see neurosurgeon. Seen by neuro 09/19/22= Seen for evaluation for memory loss. Probable mild cognitive impairment versus mild dementia, early stage Alzheimer's not excluded. Notable difficulty with delayed recall testing today, even with cueing. Difficulty copying intersecting pentagons. Remains independent for basic ADLs and semiindependent for more complex ADLs. Symptoms occur in the context of longstanding major depressive disorder. Agree that her symptoms are likely greater than what would be expected due to depression or side effects of treatment/medications. Discussed potentially pursuing formal neuropsychological evaluation. Also recommended starting low-dose donepezil. "Currently, is not have any immediate concerns regarding this patient's ability to continue to function independently and drive. However, if she does have a degenerative dementia, then I would expect continued decline in her functioning/independence going forward with perhaps the need to discontinue driving in the future." Folllow up in six months Teaching & Discussion Pre-Anesthesia Teaching/Discussion Notes: Instructed NPO after midnight before surgery,except medications with 15 cc of water. Medication instructions provided according to the PAT guidelines. History Surgery Operation Date: 02/06/23 09:20 Proposed Procedures p Left Reverse Total Shoulder Arthroplasty - Bakari Sow, Height/Weight Height: 5 ft 3 in Weight: 56.4 kg Allergies Allergy/AdvReac Type Severity Reaction Status Date / Time codeine AdvReac Intermediate AGITATION, Verified 12/20/22 11:46 HYPERACTIVITY, UNEASINESS droperidol AdvReac Intermediate AGITATION, Verified 12/20/22 11:46 HYPERACTIVITY, UNEASINESS ketorolac AdvReac Intermediate AGITATION, Verified 12/20/22 11:46 HYPERACTIVITY prochlorperazine AdvReac Intermediate AGITATION,H Verified 12/20/22 11:46 YPERACTIVIT Y propoxyphene AdvReac Intermediate AGITATION, Verified 12/20/22 11:46 HYPERACTIVITY Sulfa (Sulfonamide AdvReac Intermediate SEVERE GI Verified 12/20/22 11:46 Antibiotics) UPSET triazolam [From Halcion] AdvReac Intermediate DISORIENTED Verified 12/20/22 11:46 pregabalin [From Lyrica] AdvReac Mild SLEEPY Verified 12/20/22 11:46 dexamethasone AdvReac Unknown UNKOWN Verified 12/20/22 11:46 [From [facility]ron] REACTION lisinopril AdvReac Unknown UNKNOWN Verified 12/20/22 11:46 REACTION metoclopramide [From Reglan] AdvReac Unknown Unknown Verified 12/20/22 11:46 Medications Home Medications Medication Instructions Recorded Confirmed Last Taken acetaminophen 325 mg tablet 650 mg PO Q6H PRN pain #90 tabs 03/16/19 12/20/22 Unknown multivitamin 2 tab PO QPM 06/04/19 12/20/22 12/08/21 quetiapine 25 mg tablet 25 mg PO QPM 09/24/21 12/20/22 12/08/21 iron, carbonyl 45 mg tablet 45 mg PO BID #180 tabs 11/01/21 12/20/2222 (Feosol) calcium 500 mg tablet 500 mg PO QPM 12/07/21 12/20/22 12/08/21 vitamin E 268 mg (400 unit) capsule 400 unit PO QPM 12/07/21 12/20/22 12/08/21 ondansetron HCl 8 mg tablet 8 mg PO BID PRN nausea and 08/11/22 12/20/22 Unknown vomiting #60 tabs fluoxetine 10 mg capsule (Prozac) 20 mg PO HS 08/17/22 12/20/22 Unknown memantine 5 mg tablet 5 mg PO BID #60 tabs 09/30/22 12/20/22 Unknown tramadol 50 mg tablet 50 mg PO Q6H PRN pain #120 tabs 12/15/22 12/20/22 Unknown amlodipine 10 mg tablet 10 mg PO QPM 12/20/22 12/20/22 Unknown aripiprazole 2 mg tablet 2 mg PO UD 12/20/22 12/20/22 Unknown levothyroxine 75 mcg tablet 75 mcg PO QAM 12/20/22 12/20/22 Unknown losartan 100 mg tablet 100 mg PO QPM 12/20/22 12/20/22 Unknown prednisone 10 mg tablet 5 mg PO UD 12/20/22 12/20/22 Unknown prednisone 5 mg tablet 5 mg PO .COMPLEX #12 tabs 12/20/22 Unknown quetiapine 50 mg tablet 50 mg PO QPM 12/20/22 12/20/22 Unknown rizatriptan 10 mg tablet 10 mg PO UD PRN migraines 12/20/22 12/20/22 Unknown cholecalciferol (vitamin D3) 25 5,000 unit PO QPM 12/23/22 Unknown mcg (1,000 unit) capsule (Vitamin D3) Past Medical History Medical History Aneurysm, cerebral, nonruptured f/u Dr. Almonte, [facility] [place] neuro Per October 2021 head CTA [id number] anterior communicating artery aneurysm directed superiorly MRA 02/24/22 showed stable aneurysm (PCP aware) Anxiety and depression Cervicalgia Crohn's disease Fatigue ongoing Does NOT have ACTH deficiency ; follows with endo- "patient may benefit from supplementation of cortisol, under stress" (such as surgery) History of electroconvulsive therapy History of suicidal ideation Hypertension Hypothyroidism Lumbar radiculopathy Migraine Osteoporosis Received IV Reclast on July 15, 2020, August 03, 2021, and October 2022. Trochanteric bursitis of right hip Improved but still present- mild and stable Exercise / Class Metabolic Activity II 4-5 Yardwork/Stairs/Walk up hill (one flight of stairs - no chest pain or SOB ) Past Family History Family History Father Dementia Family history of diabetes mellitus Mother Hypertension Brother Hypertension Grandmother CHF (congestive heart failure) Other Cancer Heart disease No family history of adverse response to anesthesia No family history of bleeding disorder Stroke Denies family history of Ovarian cancer Prostate cancer Myocardial infarction Breast cancer Colorectal cancer Past Surgical History Surgical History H/O abdominal surgery REMOVAL OF ADHESIONS H/O shoulder surgery LEFT History of appendectomy History of bowel resection X 2 History of cholecystectomy History of colonoscopy History of esophagogastroduodenoscopy (EGD) History of hysterectomy History of nasal surgery excision of right sided granuloma-Dr. Viveros-12/09/21 History of tonsillectomy History of tooth extraction Hx of cataract surgery RT/LT Past Anesthesia History No Hx of Anesthesia Complications and No Family Hx of Anesthesia Complications History of PONV No Hx of Motion Sickness and History of PONV Social History Smoking Status: Never smoker Do You Dip or Chew Tobacco: No Hx Alcohol Use: No Hx Substance Use: No substance use type: does not use Review of Systems - Hx of blood transfusion (due to anemia)- many years ago Patient denies chest pain, shortness of breath, dyspnea on exertion, reflux, cou gh, wheezing, palpitations. No hx of seizures, stroke, [place], apnea/snoring. No hx of blood clots. Physical Exam Vital Signs VITALS BP 137/79 P 74 TEMP 98.1 SP02 97% RESP 16 Constitutional no acute distress ENMT Mouth: no TMJ clicking Thyromental Distance: > or= 3.5 Finger Breadths (3.5) Mallampati Class: I (smaller airway) Neck neck extension not limited Respiratory normal respiratory effort; no respiratory distress Auscultation: lungs clear to auscultation bilaterally; no wheezes Cardiovascular Rate/Rhythm: regular rate and regular rhythm Heart Sounds: no murmur Vessels: no carotid bruit Musculoskeletal Spine: no pain with cervical ROM Extremities: extremities normal to inspection Psychiatric Orientation: alert Lab Results Anesthesia Preop Results Results Anesthesia Widget: WBC 8.69 K/ul (4.8-10.8) 12/20/22 Hgb 13.0 g/dl (12.0-16.0) 12/20/22 Hct 39.9 % (37.0-47.0) 12/20/22 Plt 307 K/uL (130-400) 12/20/22 Na 140 mmol/L (136-145) 12/20/22 K 4.0 mmol/L (3.5-5.1) 12/20/22 Cl 104 mmol/L (98-107) 12/20/22 CO2 28 mmol/L (21-32) 12/20/22 BUN 12 mg/dl (6-23) 12/20/22 Creat 0.70 mg/dl (0.6-1.2) 12/20/22 Glucose Level 103 mg/dl (70-99(Fasting)) H 12/20/22 PT 10.4 Seconds (9.0-12.0) 12/28/22 PTT 25.8 Seconds (21.0-31.0) 12/28/22 INR 0.9 (0.9-1.1) 12/28/22 TSH 1.091 uIu/ml (0.300-4.500) 12/21/22 Free T4 0.84 ng/dl (0.61-1.60) 12/21/22 Blood Type A Positive 12/28/22 Antibody Screen NEGATIVE 12/28/22 Testing Electrocardiogram Date: 12/28/22 Findings: + NSR @ (73 bpm) Normal EKG per cardio Chest X-Ray Date: 12/28/22 FINDINGS: PA and lateral chest radiographs are compared to study dated 03/22/2018 and correlated with chest CT dated 03/23/2018. There is a moderate to large hiatal hernia. The cardiomediastinal silhouette is unremarkable. Chronic interstitial thickening is similar to previous. There is chronic elevation of the right hemidiaphragm and bibasilar scarring/atelectasis. No airspace consolidation or pleural effusion is identified. There is no pneumothorax. The skeletal structures are osteopenic. There are chronic/healed left-sided rib fractures. Surgical clips are seen in the right upper quadrant of the abdomen. A foreign body in the left supraclavicular soft tissues is unchanged. IMPRESSION: 1. No active disease in the chest. 2. Hiatal hernia. Echocardiogram Date: 09/16/17 EF: 55-60% LV Function: normal RWMA: + none Other Findings: + LVH (Borderline/concentric) Valvular Disease: + MR (Mild) LV is normal in size. RV is mildly dilated Mild TR. RVSP is normal. Compared with study 12/17/2014- no significant change Stress Test Date: 10/26/21 Type: exercise (Echo) Resting EF: 65-70% Resting LV Function: normal Resting RWMA: + none Valvular Disease: no significant valvular disease No ischemic changes noted on stress echo imaging at 97% MPHR. 6 METS achieved Negative exercise EKG for ischemia at 97% MPHR Appropriate BP response to exercise. No arrhythmia. Poor exercise tolerance. Similar exercise tolerance compared to prior study on 09/17/2017 No LVH. Normal estimated RVSP, assuming normal right atrial pressure. Type II DD Other Testing MRI of the head 02/24/2022 = 2 x 2 x 2 mm anterior communicating artery aneurysm directed superiorly, stable compared with October 2021. At worst mild bilateral intracranial ICA stenosis. Otherwise, negative noncontrast head MRA. No additional aneurysm or stenosis. Within limitations of MR technique, no intracranial arterial occlusion or dissection COVID-19 Risk Screen Screening Information COVID-19 Screen Date: 12/28/22 Exposure 21 Days Family/Household +COVID Last 21 Days: No Exposure 10 Days Any COVID Exposure Last 10 Days: No Symptoms Last 10 Days Experienced COVID Sx Last 10 Days: No + COVID 0-90 Days COVID + in Last 0-90 Days: No Risk Plan COVID Risk Plan: No Risk Identified Patient Education COVID Preop Screening Education Complete: Yes
--- NOTE | 2023-02-02 13:19 | History & Physical Report ---
Date of Service February 02, 2023 Assessment & Plan (1) Osteoarthritis of left shoulder: We will proceed with a left reverse shoulder arthroplasty. Postoperatively she will be placed in a sling and kept overnight in the hospital for postop medical management. She plans to use [facility] upon discharge. History of Present Illness Chief Complaint: Osteoarthritis of the left shoulder Primary Care Provider: Polo Meraz MD Celeste is a pleasant 72-year-old female who has been dealing with chronic increasing left shoulder pain. I saw her in the past and diagnosed her with osteoarthritis of the left shoulder. She has been going to pain management. She has had multiple cortisone injections. She has had an ablation to her left shoulder. She is still struggling with shoulder pain. X-rays and clinical examination been diagnostic for worsening osteoarthritis of the left shoulder. After failing conservative treatment, she has elected proceed with a left reverse shoulder arthroplasty. Allergies Allergy/AdvReac Type Severity Reaction Status Date / Time codeine AdvReac Intermediate AGITATION, Verified 12/20/22 11:46 HYPERACTIVITY, UNEASINESS droperidol AdvReac Intermediate AGITATION, Verified 12/20/22 11:46 HYPERACTIVITY, UNEASINESS ketorolac AdvReac Intermediate AGITATION, Verified 12/20/22 11:46 HYPERACTIVITY prochlorperazine AdvReac Intermediate AGITATION,H Verified 12/20/22 11:46 YPERACTIVIT Y propoxyphene AdvReac Intermediate AGITATION, Verified 12/20/22 11:46 HYPERACTIVITY Sulfa (Sulfonamide AdvReac Intermediate SEVERE GI Verified 12/20/22 11:46 Antibiotics) UPSET triazolam [From Halcion] AdvReac Intermediate DISORIENTED Verified 12/20/22 11:46 pregabalin [From Lyrica] AdvReac Mild SLEEPY Verified 12/20/22 11:46 dexamethasone AdvReac Unknown UNKOWN Verified 12/20/22 11:46 [From [facility]] REACTION lisinopril AdvReac Unknown UNKNOWN Verified 12/20/22 11:46 REACTION metoclopramide [From Reglan] AdvReac Unknown Unknown Verified 12/20/22 11:46 Home Medications Medication Instructions Recorded Confirmed Type acetaminophen 325 mg tablet 650 mg PO Q6H PRN pain #90 tabs 03/16/19 12/20/22 Rx multivitamin 2 tab PO QPM 06/04/19 12/20/22 History quetiapine 25 mg tablet 25 mg PO QPM 09/24/21 12/20/22 History iron, carbonyl 45 mg tablet 45 mg PO BID #180 tabs 11/01/21 12/20/22 Rx (Feosol) calcium 500 mg tablet 500 mg PO QPM 12/07/21 12/20/22 History vitamin E 268 mg (400 unit) capsule 400 unit PO QPM 12/07/21 12/20/22 History ondansetron HCl 8 mg tablet 8 mg PO BID PRN nausea and 08/11/22 12/20/22 Rx vomiting #60 tabs fluoxetine 10 mg capsule (Prozac) 20 mg PO HS 08/17/22 12/20/22 History amlodipine 10 mg tablet 10 mg PO QPM 12/20/22 12/20/22 History aripiprazole 2 mg tablet 2 mg PO UD 12/20/22 12/20/22 History losartan 100 mg tablet 100 mg PO QPM 12/20/22 12/20/22 History prednisone 10 mg tablet 5 mg PO UD 12/20/22 12/20/22 History prednisone 5 mg tablet 5 mg PO .COMPLEX #12 tabs 12/20/22 Rx quetiapine 50 mg tablet 50 mg PO QPM 12/20/22 12/20/22 History rizatriptan 10 mg tablet 10 mg PO UD PRN migraines 12/20/22 12/20/22 History cholecalciferol (vitamin D3) 25 5,000 unit PO QPM 12/23/22 History mcg (1,000 unit) capsule (Vitamin D3) memantine 5 mg tablet 5 mg PO BID #60 tabs 01/02/23 Rx levothyroxine 75 mcg tablet 75 mcg PO QAM #30 tabs 01/20/23 Rx tramadol 50 mg tablet 50 mg PO Q6H PRN pain #120 tabs 01/24/23 Rx Past Med/Surg History Medical History Aneurysm, cerebral, nonruptured [place]monte[place] [facility] [place] 2021 head CTA [id number] anterior communicating artery aneurysm directed superiorly MRA 02/24/22 showed stable aneurysm (PCP aware) Anxiety and depression Cervicalgia Crohn's disease Fatigue ongoing Does NOT have ACTH deficiency ; follows with endo- "patient may benefit from supplementation of cortisol, under stress" (such as surgery) History of electroconvulsive therapy History of suicidal ideation Hypertension Hypothyroidism Lumbar radiculopathy Migraine Osteoporosis Received IV Reclast on July 15, 2020, August 03, 2021, and October 2022. Trochanteric bursitis of right hip Improved but still present- mild and stable Surgical History H/O abdominal surgery REMOVAL OF ADHESIONS H/O shoulder surgery LEFT History of appendectomy History of bowel resection X 2 History of cholecystectomy History of colonoscopy History of esophagogastroduodenoscopy (EGD) History of hysterectomy History of nasal surgery excision of right sided granuloma-Dr. Viveros-12/09/21 History of tonsillectomy History of tooth extraction Hx of cataract surgery RT/LT Family History Father Dementia Family history of diabetes mellitus Mother Hypertension Brother Hypertension Grandmother CHF (congestive heart failure) Other Cancer Heart disease No family history of adverse response to anesthesia No family history of bleeding disorder Stroke Denies family history of Ovarian cancer Prostate cancer Myocardial infarction Breast cancer Colorectal cancer Social History Smoking Status: Never smoker Second Hand Exposure: Yes (HX GROWING UP); Do You Dip or Chew Tobacco: No; Hx Alcohol Use: No Hx Substance Use: No Preferred Language: Polish Communication Ability: Effective Visual Impairment: No Limitations Hearing Ability: Normal Solar Photovoltaic Systems Engineer Required: No Beliefs That Will Affect Care: None marital status: Current Living Situation: Spouse and Family 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 Physical Exam On physical examination of the left shoulder, she has about 120 degrees of forward elevation 80 degrees of abduction 20 degrees of external rotation. She has 3 out of 5 motor strength throughout. She is a lot of pain with range of motion.. Constitutional WD/WN, vitals as above Eyes PERRL, conjunctivae normal, anicteric sclerae ENMT external ear and nose normal, oropharynx normal Neck trachea midline, no thyromegaly Respiratory normal respiratory effort, lungs clear to auscultation Cardiovascular RRR, no murmur, no edema Gastrointestinal (Abdomen) normal bowel sounds, soft, nontender, no hepatosplenomegaly Skin no rashes, warm and dry Psychiatric A+Ox3, euthymic affect Results & Data Results & Data Laboratory Results . Diagnostic Findings X-rays of the left shoulder do show signs of osteoarthritis with joint space narrowing, osteophyte formation, and [id number] articulation. PG Care Time/CCT Total # of Minutes Spent Total Time Spent with Patient: Total time spent is greater than 50% in coordination of care (as documented) at patient's floor/unit and/or counseling patient: Coding Level of Care Code None Diagnoses Osteoarthritis of left shoulder M19.012
[~2023-02-06 09:18] MED LIST changes: -ABL/5 PO; +ACETAMINOPHEN 500 MG TAB PO SCH; +BUPIVACAINE 0.5 % 5 MG/1 ML PF 10ML VIAL ONE; -BUPRTAB51 PO; -DULO60CA44 PO; +FAMOTIDINE 20 MG TAB PO SCH; +GABAPENTIN 300 MG CAP PO SCH; -LEVO100T7 PO; -LOSA1TAB38 PO; +LR 15ML/HR IV SCH; +LR 60ML/HR IV SCH; +ORTHO JOINT MIX INFIL SCH; -PANT1TAB4 PO; -SUCR1TAB29 PO; +TRANEXAMIC ACID 1,000 MG **IV Intra-op IV SCH; +TRANEXAMIC ACID 1,000 MG **IV Pre-op IV SCH; -TRAZ50TA35 PO; +ceFAZolin 2000MG 2,000 MG/15 ML SYR IV SCH; +dexAMETHasone 4 MG TAB PO SCH
--- NOTE | 2023-02-06 10:31 | History & Physical Bridge Note ---
Date of Service February 06, 2023 History & Physical Bridge Note I have examined the patient, reviewed the History & Physical and in the interval since the performance of the History & Physical I have noted the following changes of clinical significance: no changes noted
[2023-02-06] MEDS ORDERED: DEXAMETHASONE SOD INJ 4 MG/ML VIAL ONE (10:53)
[2023-02-06] MEDS ORDERED: GLYCOPYRROLATE 0.2 MG/ML VIAL ONE (10:53)
[2023-02-06] MEDS ORDERED: PROPOFOL IV EMULSION 10 MG/ML 20 ML VIAL IV ONE (10:53)
[2023-02-06] MEDS ORDERED: ONDANSETRON INJ 2 MG/ML 2 ML VIAL ONE (10:53)
[2023-02-06] MEDS ORDERED: fentaNYL citrate PF 100 MCG/2 ML VIAL ONE (10:54)
[2023-02-06] MEDS ORDERED: MIDAZOLAM HCL 1 MG/ML 2ML VIAL ONE (10:54)
[2023-02-06] MEDS ORDERED: ORTHO JOINT ANESTHETIC ONE (11:51)
[2023-02-06] MEDS ORDERED: ONDANSETRON INJ 2 MG/ML 2 ML VIAL IV PRN ×2 (12:38→15:32)
[2023-02-06] MEDS ORDERED: ATROPINE SULFATE 0.1 MG/ML 10ML SYR IV PRN (12:38)
[2023-02-06] MEDS ORDERED: PROMETHAZINE HCL 6.25 MG in SODIUM CHLORIDE 0.9% 50 ML IV PRN (12:38)
[2023-02-06] MEDS ORDERED: KETOROLAC 30 MG/ML VIAL IV PRN (12:38)
[2023-02-06] MEDS ORDERED: fentaNYL citrate PF 100 MCG/2 ML VIAL IV PRN (12:38)
[2023-02-06] MEDS ORDERED: HYDROCORTISONE SOD SUCCINATE 100 MG/2 ML VIAL ONE (12:39)
--- NOTE | 2023-02-06 13:39 | Operative Report ---
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 A tenodesis was opted. This was a separate and distinct portion of the procedure. For these reasons, a CPT code modifier 59 will be added to this case. Implants used: I used a [employer] Comprehensive reverse total shoulder arthroplasty system with a size 11 press fit micro humeral stem, a +6 offset humeral tray and a standard humeral bearing, a 25 mm small augment baseplate with a 6.5 mm central screw and superior and inferior locking screws, and a size 36 mm eccentric glenosphere. Celeste arrived at [facility] for the above procedure. She was seen in the preoperative holding area and the operative extremity was identified and sig laura. She was given a preoperative antibiotic, TXA, and an interscalene nerve block. She was taken back to the operating room, laid on table in supine position, and put under general anesthesia. She was then put into the beachchair position. The shoulder was then prepped and draped in sterile fashion. A timeout was done and the patient and the operative extremity was properly identified. A deltopectoral approach was used. Dissection was taken down through the fascia and the deltoid was retracted laterally and the conjoined tendon was retracted medially. The anterior shoulder was exposed. The biceps groove was opened up and the biceps tendon was examined extensively. The biceps tendon demonstrated enlargement and inflammatory changes consistent with longstanding inflammation in the context of osteoarthritis and cuff arthropathy. The long head of the biceps tendon was then tenodesed to the upper border of the pectoralis major. This was a separate and distinct portion of the procedure. The subscapularis was then directly released off the lesser tuberosity with a peel technique. The inferior capsule was released and the humeral head was dislocated. A canal finding reamer was sent down the center of the humeral canal. Sequential reaming up to a size 11 reamer was done. Off that reamer, a proximal humeral resection guide was placed. The proximal humerus was resected at 135 of inclination and 25 of retroversion. Osteophytes were then removed and the glenoid was exposed. Time was spent doing a complete capsular and labral release. The glenoid guide was then placed in the inferior aspect of the glenoid. A 3.2 mm Steinmann pin was then placed into the glenoid vault at 10 of inclination. The glenoid baseplate was then reamed. The final size 25 mm small augment baseplate was then impacted in the place. A 6.5 mm central screw was then placed followed by superior and inferior locking screws. A 36 mm eccentric glenosphere was then impacted into place. Surrounding soft tissues were then injected with 100 cc an orthopedic pain control cocktail. The proximal humerus was then exposed. Sequential broaching of the humerus up to a size 11 broach was done. Off that broach a +6 offset humeral tray was trialed. The shoulder was then reduced, brought through a full range of motion, and felt to be stable. The shoulder was then dislocated and the broach was removed. The final size 11 micro press-fit humeral stem was then impacted into place. A standard humeral bearing was then snapped onto a +6 offset humeral tray. The humeral tray was then impacted onto the humeral stem. The shoulder was once again reduced, brought through a full range of motion, and felt to be stable. The subscapularis was retracted and unable to be repaired. A dilute betadyne lavage was then done for 3 minutes. The joint was then irrigated with normal saline solution. Hemostasis was obtained. The interval was closed with 2-0 Vicryl suture. The skin was then closed with 2-0 Vicryl and sierra. A Silverlon dressing was placed and the arm was rested in a regular arm sling. She was then extubated and transferred to a hospital bed. She taken to the postanesthesia care unit in stable condition. She tolerated the procedure well. Bakari Moore PA-C, was present for the entire procedure. He was critical for patient positioning, prepping, draping, retraction exposure, wound closure and application of sterile dressing. I attest to the content of the Intraoperative Record and any orders documented therein. Any exceptions are noted below.
[2023-02-06] MEDS ORDERED: LABETALOL HCL IV 5 MG/ML 20ML IV PRN (14:04)
--- NOTE | 2023-02-06 14:19 | Anesthesiology Progress Note ---
Date of Service February 06, 2023 Anesthesia Post Procedure Vital Signs Vital Signs: Temp Pulse Resp BP Pulse Ox O2 Del Method O2 Flow Rate 02/06/23 14:10 92 H 16 155/107 H 100 Oxymask 6 02/06/23 14:00 89 20 174/107 H 99 Oxymask 10 02/06/23 13:50 36 C L 96 H 14 158/129 H 98 Oxymask 10 02/06/23 10:05 36.5 C 73 20 141/98 H 94 Room Air Pain Intensity Left Shoulder: Pain Intensity: 0 Transfer of Care Handoff Completed per policy Notes Mental Status: alert / awake / arousable Patient Amnestic to Procedure: Yes Nausea / Vomiting: adequately controlled Pain: adequately controlled Airway Patency, RR, SpO2: stable & adequate BP & HR: stable & adequate Hydration State: stable & adequate Anesthetic Complications: no major complications apparent
--- NOTE | 2023-02-06 14:56 | Anesthesiology Progress Note ---
Date of Service February 06, 2023 Anesthesia Post Procedure Vital Signs Vital Signs: Temp Pulse Resp BP Pulse Ox O2 Del Method O2 Flow Rate 02/06/23 14:55 74 22 140/79 97 Room Air 02/06/23 14:40 36.4 C L 68 20 156/83 H 97 Room Air 02/06/23 14:30 73 24 152/89 H 97 Room Air 02/06/23 14:20 72 22 159/89 H 97 Room Air 02/06/23 14:10 92 H 16 155/107 H 100 Oxymask 6 02/06/23 14:00 89 20 174/107 H 99 Oxymask 10 02/06/23 13:50 36 C L 96 H 14 158/129 H 98 Oxymask 10 02/06/23 10:05 36.5 C 73 20 141/98 H 94 Room Air Pain Intensity Left Shoulder: Pain Intensity: 0 Transfer of Care Handoff Completed per policy Notes Mental Status: alert / awake / arousable Patient Amnestic to Procedure: Yes Nausea / Vomiting: adequately controlled Pain: adequately controlled Airway Patency, RR, SpO2: stable & adequate BP & HR: stable & adequate Hydration State: stable & adequate Anesthetic Complications: no major complications apparent
[2023-02-06] MEDS ORDERED: RIZATRIPTAN BENZOATE 10 MG TAB PO PRN (15:32)
[2023-02-06] MEDS ORDERED: NALOXONE HCL 0.4 MG/1 ML VIAL/CARP IV PRN (15:32)
[2023-02-06] MEDS ORDERED: METOCLOPRAMIDE HCL INJ 5 MG/ML 2 ML VIAL IV PRN (15:32)
[2023-02-06] MEDS ORDERED: bisacodyL 10 MG SUPP PR PRN (15:32)
[2023-02-06] MEDS ORDERED: MAGNESIUM HYDROXIDE SUSP 30 ML UDC PO PRN (15:32)
[2023-02-06] MEDS ORDERED: predniSONE 10 MG TABLET PO PRN (15:32)
--- NOTE | 2023-02-06 15:32 | XRay Report ---
XR shoulder LT min 2V routine CLINICAL HISTORY: Post shoulder surgery COMPARISON: Left shoulder radiograph November 30, 2022. FINDINGS: Alignment of the reverse total left shoulder arthroplasty is anatomic. There is no peripro sthetic fracture. No unexpected radiopaque foreign bodies are present. There are skin sierra. Incide ntal note is made of multiple old left rib fractures. IMPRESSION: Expected findings following reverse total left shoulder arthroplasty. ACT 112: Negative or not required by law. Electronically signed by: Richie Ackerman M.D. 02/06/2023 3:31 PM
[2023-02-06] MEDS: SODIUM CHLORIDE 0.9% 1000ML 1,000 ML IV SCH (16:40)
[2023-02-06] MEDS: ACETAMINOPHEN 500 MG TAB PO SCH ×2 (16:58→21:19)
[2023-02-06] MEDS: ALLERGY Noted to ORDERED Medication SCH ×4 (16:59→17:11)
[2023-02-06] MEDS: traMADol HCL 50 MG TABLET PO PRN (18:18)
[2023-02-06] MEDS: ceFAZolin 2000MG 2,000 MG/15 ML SYR IV SCH (19:26)
[2023-02-06] MEDS ORDERED: Nursing to Pharmacy Communication SCH (20:30)
[2023-02-06] MEDS ORDERED: amLODIPine BESYLATE 5 MG TAB PO SCH (21:00)
[2023-02-06] MEDS ORDERED: LOSARTAN POTASSIUM 50 MG TAB PO SCH (21:00)
[2023-02-06] MEDS ORDERED: QUEtiapine FUMARATE 25 MG TABLET PO SCH (21:00)
[2023-02-06] MEDS: QUEtiapine FUMARATE 25 MG TABLET PO SCH (21:18)
[2023-02-06] MEDS: MEMANTINE HCL 5 MG TAB PO SCH (21:18)
[2023-02-06] MEDS: SENNA 8.6 MG TAB PO SCH (21:19)
[2023-02-06] MEDS: DOCUSATE SODIUM 100 MG CAP PO SCH (21:19)
[2023-02-06] MEDS: FLUoxetine HCL 20 MG CAP PO SCH (21:19)
[2023-02-06] MEDS ORDERED: COUGH DROP (SUGAR FREE) LOZ 24 LOZ/1 BOX BUCCAL ONE (21:22)
[2023-02-07] MEDS: SODIUM CHLORIDE 0.9% 1000ML 1,000 ML IV SCH (03:12)
[2023-02-07] MEDS: LEVOTHYROXINE SODIUM 75 MCG TABLET PO SCH (05:00)
[2023-02-07] MEDS: traMADol HCL 50 MG TABLET PO PRN ×4 (05:00→22:57)
[2023-02-07] MEDS: ACETAMINOPHEN 500 MG TAB PO SCH ×3 (05:01→22:55)
[2023-02-07] MEDS: ceFAZolin 2000MG 2,000 MG/15 ML SYR IV SCH (05:01)
--- NOTE | 2023-02-07 07:08 | Orthopedic Progress Note ---
Date of Service February 07, 2023 Assessment & Plan (1) Status post reverse total replacement of left shoulder: Overall she is doing fairly well. She is not having much pain in the left shoulder. She will be seen by physical therapy today for ambulation and range of motion exercises. She can be discharged home later today. She will follow- up with orthopedics in 2 weeks. Subjective Celeste was seen and examined at bedside this morning. Overall she is doing fairly well. She is not having much pain in the left shoulder. She was having some difficulty swallowing last night but it seems to be better today. She has no new complaints.. Review of Systems All systems reviewed & are unremarkable except as noted in HPI & below. Physical Exam On physical examination of the left shoulder, the dressing is clean and dry. She is wearing her sling as instructed. The nerve block is still in effect.. Results & Data Results & Data Laboratory Results . Diagnostic Findings Postoperative x-rays of the left shoulder show the prosthesis to be in anatomic alignment without any evidence of fracture, desiccation, or loosening.. PG Care Time/CCT Total # of Minutes Spent Total Time Spent with Patient: Total time spent is greater than 50% in coordination of care (as documented) at patient's floor/unit and/or counseling patient: Coding Level of Care Code 38703 Post Operative Follow-Up Diagnoses Status post reverse total replacement of left shoulder Z96.612
--- NOTE | 2023-02-07 07:09 | Discharge Summary ---
Date of Service February 07, 2023 Admission HPI (Per Admitting) Celeste is a pleasant 72-year-old female who has been dealing with chronic increasing left shoulder pain. I saw her in the past and diagnosed her with osteoarthritis of the left shoulder. She has been going to pain management. She has had multiple cortisone injections. She has had an ablation to her left shoulder. She is still struggling with shoulder pain. X-rays and clinical examination been diagnostic for worsening osteoarthritis of the left shoulder. After failing conservative treatment, she has elected proceed with a left reverse shoulder arthroplasty. Admission Exam (Per Admitting) On physical examination of the left shoulder, she has about 120 degrees of forward elevation 80 degrees of abduction 20 degrees of external rotation. She has 3 out of 5 motor strength throughout. She is a lot of pain with range of motion.. Principal Diagnosis Same as "Discharge Diagnosis" noted below under Discharge Instructions. Discharge Exam On physical examination of the left shoulder, the dressing is clean and dry. She is wearing her sling as instructed. The nerve block is still in effect.. Discharge Data Procedures Performed Operation Date: 02/06/23 12:00 Actual Procedures p Left Reverse Total Shoulder Arthroplasty(Left) - Bakari Sow DO Ordered Studies 02/06/23 05:00 US - OR guided needle placemen Routine Hospital Course (1) Status post reverse total replacement of left shoulder: On February 06, 2023 Celeste arrived at [facility] and underwent a left reverse shoulder replacement without complication. She had a general anesthetic and a left interscalene nerve block. Postoperatively she was placed in a sling and transferred to the general orthopedic floors. Her hospital course was uneventful. On postop day #1, her vital signs were stable and her pain was well controlled. She was able to participate well with physical therapy doing ambulation and range of motion exercises. She was then discharged home. She will follow-up with orthopedics in 2 weeks. PG Care Time/CCT Total # of Minutes Spent Total Time Spent with Patient: Total time spent is greater than 50% in coordination of care (as documented) at patient's floor/unit and/or counseling patient: Discharge Plan Discharge Items Patient Disposition: Home - Home Health Services Reason For Visit: DJD Left Shoulder Discharge Diagnosis: Left reverse shoulder replacement Activity: As commented below Non-emergency contact: Surgeon Call non-emergency contact if: your wound has increased redness and your wound has increased drainage Follow-up/Referrals: Polo Meraz MD [Primary Care Provider] - Diet: Regular Addtl Attending Provider Instructions: Activity and Therapy Recommendations: * If you are using [facility] then therapy will be provided at your home until they feel you have accomplished all of your goals. * If you are using [facility] then Physical Therapy will be provided until they feel you are ready to start Outpatient Physical Therapy. * If you are not using home therapy then Outpatient Physical Therapy should start about 3-5 days from your day of surgery. Therapy will last about 8-12 weeks * Wear your sling for 3 weeks, unless otherwise instructed. You may remove your sling to shower and to dress, but otherwise, you should be in your sling at all times, including while sleeping * The shoulder replacement is very stable and you can use your hand while in the sling * You were shown a series of exercises in the hospital. Do these exercises daily including the exercises you were shown in physical therapy. Medications: * Narcotic You will likely be sent home from the hospital with a prescription for the narcotic pain medication that worked best throughout your stay. * Other medications may be prescribed for specific circumstances. If you have any questions, please call the office at . * Resume previous home medications unless otherwise instructed Dressing Care: Leave the Silverlon dressing in place for 7 days. After 7 days you may remove the dressing. If the incision is not draining then you may leave the sierra open to air. If there is a little bit of drainage or if the sierra are getting stuck on your clothing then cover the incision with a dry dressing. The sierra will be removed at your 2 week follow-up appointment. Showering: You may shower with the Silverlon dressing in place. Do not let the shower spray hit the dressing directly. Pat the Silverlon dressing dry. If the dressing becomes wet underneath, then simply remove the dressing. Keep the incision dry until you are 7 days out from the day of surgery. After 7 days you may remove the Silverlon dressing and shower with the sierra exposed. Let soapy water run over the sierra and pat them dry. Do not scrub or soak the incision. Things To Watch For: * Drainage from the incision site that occurs more than one week after your surgery. * Increased redness at the incision site. * Fever above 102 degrees Fahrenheit. * Unusual chest pain or shortness of breath. * Call [facility] at with any of the above problems Follow-Up Visit: Follow-up with Dr. Sow's PA (Bakari Moore) 2-3 weeks after your day of surgery. He will remove your sierra and answer any questions. If you have any additional questions or concerns, Dr Sow is usually in the office at the same time and will be available An appointment was probably scheduled when you signed-up for surgery in the office. If you have any questions call More detailed instructions as well as Frequently Asked Questions were provided in a folder by our office when you signed-up for surgery. Please review these instructions when you get home. If you have any further questions or concerns, please feel free to call the office at [phone] Pending Studies at Discharge: No Stand-Alone Forms: My [facility] Medications and DC Order Prescriptions: New oxycodone 5 mg capsule 5 mg PO Q6H PRN (Reason: pain) Qty: 30 0RF Continued iron, carbonyl [Feosol] 45 mg tablet 45 mg PO BID Qty: 180 3RF ondansetron HCl 8 mg tablet 8 mg PO BID PRN (Reason: nausea and vomiting) Qty: 60 2RF cholecalciferol (vitamin D3) [Vitamin D3] 25 mcg (1,000 unit) capsule 5,000 unit PO QPM levothyroxine 75 mcg tablet 75 mcg PO QAM Qty: 30 1RF Hold Instructions: per order tramadol 50 mg tablet 50 mg PO Q6H PRN (Reason: pain) Qty: 120 0RF acetaminophen 325 mg tablet 650 mg PO Q6H PRN (Reason: pain) Qty: 90 3RF multivitamin tablet 2 tab PO QPM fluoxetine [Prozac] 10 mg capsule 20 mg PO HS quetiapine 25 mg tablet 25 mg PO QPM Patient Comments: at bedtime prednisone 5 mg tablet 5 mg PO .COMPLEX Qty: 70 0RF Rx Instructions: after surgery take 10mg bid for severe pain and titrate down as instructed. aripiprazole [Abilify] 2 mg tablet 2 mg PO UD Rx Instructions: TAKES 1 DAILY, EVERY DAY, WITH EXCEPTION OF MONDAY AND MONDAY quetiapine [Seroquel] 50 mg tablet 50 mg PO QPM Rx Instructions: COMBINED WITH 25MG TAB FOR TOTAL OF 75MG EVERY EVENING. rizatriptan [Maxalt] 10 mg tablet 10 mg PO UD PRN (Reason: migraines) Rx Instructions: take 1 tab at onset of headache; if no relief may repeat 1 tab after at least 2 hrs; max = 2 tabs/24 hr PO amlodipine 10 mg tablet 10 mg PO QPM losartan 100 mg tablet 100 mg PO QPM memantine [Namenda] 5 mg tablet 5 mg PO BID calcium 500 mg Tablet 500 mg PO QPM vitamin E 400 unit capsule 400 unit PO QPM Admission Data Admit Date/Time: 02/06/23 13:52 Attending Provider: Bakari Sow Admit Provider: Bakari Sow Primary Care Provider: Polo Meraz
[2023-02-07] MEDS: LOSARTAN POTASSIUM 50 MG TAB PO SCH (07:45)
[2023-02-07] MEDS: MULTIVITAMIN TAB PO SCH (07:45)
[2023-02-07] MEDS: MEMANTINE HCL 5 MG TAB PO SCH ×2 (07:45→20:57)
[2023-02-07] MEDS: amLODIPine BESYLATE 5 MG TAB PO SCH (07:47)
[2023-02-07] MEDS: DOCUSATE SODIUM 100 MG CAP PO SCH ×2 (07:48→20:57)
[2023-02-07] MEDS: ARIPIprazole 1 MG/ML ORAL SOLN 150 ML BTL PO SCH (07:51)
[2023-02-07] MEDS ORDERED: oxyCODONE HCL IR 5 MG TAB (IMMEDIATE RELEASE) PO STA ×2 (12:05→13:22)
--- NOTE | 2023-02-07 12:14 | Electrocardiogram Report ---
Test Reason : Blood Pressure : / mmHG Vent. Rate : 080 BPM Atrial Rate : 080 BPM P-R Int : 140 ms QRS Dur : 080 ms QT Int : 368 ms P-R-T Axes : 036 028 045 degrees QTc Int : 424 ms Normal sinus rhythm Nonspecific ST abnormality Abnormal ECG When compared with ECG of 28-DEC-2022 13:58, ST now depressed in Lateral leads Nonspecific T wave abnormality now evident in Lateral leads Confirmed by Raymond Bauer ([id number]) on 02/07/2023 12:13:54 PM Referred By: Bakari Sow Confirmed By:Mat Bauer
[2023-02-07] MEDS ORDERED: HYDROmorphone INJ 0.5 MG/0.5 ML SYR IV PRN (14:54)
[2023-02-07] MEDS: QUEtiapine FUMARATE 25 MG TABLET PO SCH (20:57)
[2023-02-07] MEDS: SENNA 8.6 MG TAB PO SCH (20:57)
[2023-02-07] MEDS: FLUoxetine HCL 20 MG CAP PO SCH (20:57)
[2023-02-08] MEDS: traMADol HCL 50 MG TABLET PO PRN ×2 (03:18→07:29)
[2023-02-08] MEDS: ACETAMINOPHEN 500 MG TAB PO SCH ×2 (06:33→14:50)
[2023-02-08] MEDS: LEVOTHYROXINE SODIUM 75 MCG TABLET PO SCH (06:33)
--- NOTE | 2023-02-08 06:44 | Orthopedic Progress Note ---
Date of Service February 08, 2023 Assessment & Plan (1) Status post reverse total replacement of left shoulder: She is still having some pain in the shoulder but it seems to be controlled with the oxycodone. She said she feels comfortable being discharged home with the oxycodone today. She will be seen by physical therapy this morning. She can be discharged home after physical therapy. She will follow with orthopedics in 2 weeks. Nyla Alonso was seen and examined at bedside this morning. She still having some pain in the shoulder. Its been helped with the oxycodone. She has no new complaints.. Review of Systems All systems reviewed & are unremarkable except as noted in HPI & below. Physical Exam On physical examination of the left shoulder, the dressing is clean and dry. She is wearing her sling as instructed. She has active motion of her hand and wrist.. Results & Data Results & Data Laboratory Results . PG Care Time/CCT Total # of Minutes Spent Total Time Spent with Patient: Total time spent is greater than 50% in coordination of care (as documented) at patient's floor/unit and/or counseling patient: Coding Level of Care Code 85571 Post Operative Follow-Up Diagnoses Status post reverse total replacement of left shoulder Z96.612
[2023-02-08] MEDS: amLODIPine BESYLATE 5 MG TAB PO SCH (07:40)
[2023-02-08] MEDS: ARIPIprazole 1 MG/ML ORAL SOLN 150 ML BTL PO SCH (07:42)
[2023-02-08] MEDS: DOCUSATE SODIUM 100 MG CAP PO SCH (07:42)
[2023-02-08] MEDS: LOSARTAN POTASSIUM 50 MG TAB PO SCH (07:43)
[2023-02-08] MEDS: MEMANTINE HCL 5 MG TAB PO SCH (07:43)
[2023-02-08] MEDS: MULTIVITAMIN TAB PO SCH (07:44)
[2023-02-08] MEDS ORDERED: oxyCODONE HCL IR 5 MG TAB (IMMEDIATE RELEASE) PO PRN ×3 (10:51→11:09)
== END 2023-02-08 15:19 | disposition home health service (06) ==
LOC: ASU 09:18 → 3E 09:18